=== PATIENT | female | born 1980 | race Caucasian/White ===

== ENCOUNTER → 2020-03-15 08:55 | Outpatient (CLI) | payer OTHER, SELFPAY ==
--- NOTE | ~2020-03-15 | US_ITS ---
US breast LT complete 03/15/2020 09:13 Indication: Left breast axillary palpable lump Procedure: High-resolution ultrasound of the left axilla Comparison: No prior studies for comparison. Findings: In the area of palpable concern in the left axilla, 12 cm from the nipple, there is a audrey l-appearing 1.7 cm lymph node with echogenic hilum. No sonographic evidence for malignancy. Impression: 1: Benign-appearing left axillary lymph node in the area of palpable concern. Routine yearly screening mammogram and regular clinical breast examination are recommended. BI-RADS CATEGORY 2 - BENIGN FINDINGS Reviewed, dictated and finalized at location A. Impression: 1: Benign-appearing left axillary lymph node in the area of palpable concern. Routine yearly screening mammogram and regular clinical breast examination are recommended. BI-RADS CATEGORY 2 - BENIGN FINDINGS
== END ==
PROVIDERS: Visit Provider Nurse Practitioner Obstetrics & Gynecology
DX: R22.2 Localized swelling, mass and lump, trunk (principal)
CPT/HCPCS: 76641

== ENCOUNTER 2020-10-25 13:05 | Outpatient (CLI) | payer OTHER, SELFPAY | END 2020-10-25 13:06 | disposition home or self-care (01) | LOC: ANHCOVIDVC 13:06 | PROVIDERS: PCP Advanced Practice Midwife | DX: Z23 Encounter for immunization (principal) | CPT/HCPCS: 0001A; 91300 ==

== ENCOUNTER 2020-11-15 12:59 | Outpatient (CLI) | payer OTHER, SELFPAY | END 2020-11-15 13:00 | disposition home or self-care (01) | LOC: ANHCOVIDVC 12:59 | PROVIDERS: PCP Advanced Practice Midwife | DX: Z23 Encounter for immunization (principal) | CPT/HCPCS: 0002A; 91300 ==

== ENCOUNTER 2022-08-17 15:18 | Outpatient (CLI) | payer OTHER, SELFPAY ==
--- NOTE | ~2022-08-17 | CT_ITS ---
EXAMINATION: CT abdomen pelvis w con DATE: 08/17/2022 15:56 INDICATION: Abdominal pain. Umbilical hernia for 9 months. TECHNIQUE: Computed tomography (CT) of the abdomen and pelvis was performed with 100 CC Omnipaque 350 intravenous contrast. Automated exposure control and iterative reconstruction technique were employe d. Exam dose: 341.37 mGy-cm total exam DLP. COMPARISON: 05/13/2015 CT abdomen pelvis FINDINGS: The lung bases are clear. Normal heart size. No pericardial or pleural effusion. Small sliding hiatal hernia. The liver, spleen, pancreas, and adrenal glands and kidneys appear normal. The gallbladder is present. No bile duct or pancreatic duct dilatation. No urinary tract calculus or hydroureteronephrosis. Moderate diffuse thickening of the urinary bladder wall; cystitis is not excluded. The uterus and adn exal areas are unremarkable except for enhancing approximately 1.3 cm involuting right ovarian corpus luteum cyst. There is minimal likely physiologic free fluid in the posterior cul-de-sac. Normal caliber of the abdominal aorta. No intraperitoneal or retroperitoneal or pelvic mass lesion or adenopathy or ascites. No bowel obstruction, bowel wall thickening, pneumatosis or intraperitoneal free air. Small fat-containing umbilical hernia. No suspicious osteolytic or osteoblastic lesions. IMPRESSION: Involuting 1.3 cm right ovarian cyst with minimal likely physiologic free fluid in the p osterior cul-de-sac Small sliding hiatal hernia Small fat-containing umbilical hernia Reviewed, dictated and finalized at Location A. Reviewed, dictated and finalized at location A. UITING ASSISTANT IMPRESSION: Involuting 1.3 cm right ovarian cyst with minimal likely physiolog ic free fluid in the posterior cul-de-sac Small sliding hiatal hernia Small fat-containing umbilical hernia
== END 2022-08-17 15:19 | disposition home or self-care (01) ==
PROVIDERS: PCP Internal Medicine; Visit Provider Clinical Nurse Specialist
DX: K42.9 Umbilical hernia without obstruction or gangrene (principal); R10.9 Unspecified abdominal pain; K44.9 Diaphragmatic hernia without obstruction or gangrene; N83.201 Unspecified ovarian cyst, right side
CPT/HCPCS: 74177; Q9967

== ENCOUNTER → 2022-08-31 09:08 | Outpatient (CLI) | payer OTHER, SELFPAY ==
--- NOTE | ~2022-08-31 | US_ITS ---
US abdomen limited DATE: 08/31/2022 09:25 INDICATION: Epigastric abdominal pain TECHNIQUE: Real-time imaging of liver, pancreas, gallbladder COMPARISON: 08/17/2022 CT abdomen FINDINGS: No hepatic or pancreatic specimen mass lesion. Normal hepatopedal portal venous flow direct ion. No gallstones or gallbladder wall thickening or pericholecystic fluid. Negative sonographic Murp hy's sign. The common bile duct measures 3 mm, normal. IMPRESSION: Negative examination Reviewed, dictated and finalized at Location A. Reviewed, dictated and finalized at location L. PRINCIPAL IMPRESSION: Negative examination
== END ==
PROVIDERS: PCP Internal Medicine; Visit Provider Surgery
DX: R10.13 Epigastric pain (principal)
CPT/HCPCS: 76705

== ENCOUNTER → 2023-05-02 15:16 | Outpatient (CLI) | payer OTHER, SELFPAY ==
--- NOTE | ~2023-05-02 | XR_ITS ---
XR hand RT 2V DATE: 05/02/2023 15:29 INDICATION: Right hand pain TECHNIQUE: 3 views COMPARISON: None FINDINGS: No fracture or dislocation, periosteal reaction or bone destruction, erosive change or sarah drocalcinosis. IMPRESSION: Negative Reviewed, dictated and finalized at location A. IMPRESSION: Negative
== END ==
PROVIDERS: PCP Clinical Nurse Specialist; Visit Provider Clinical Nurse Specialist
DX: M79.641 Pain in right hand (principal)
CPT/HCPCS: 73120

== ENCOUNTER 2023-05-04 10:26 | Outpatient (CLI) | payer OTHER, SELFPAY ==
--- NOTE | 2023-05-04 13:21 | WPDPFTINT ---
PFT Procedure Performed PFT Procedure Performed Spirometry with Pre/Post Bronchodilator Plethysmography (Lung Vol) Diffusing Cap (DLCO) Flow Vol Loop PFT Interpretation This is a pulmonary function test with pre and post-bronchodilator spirometry, plethysmography and diffusing capacity. The test was performed and results interpreted in accordance with the 2019 and 2005 ATS/ERS Task Force guidelines respectively using the Global Lung Function Initiative-2012 reference equations. Patient demonstrated good effort and cooperation. Reproducibility criteria were met. The quality of the pre bronchodilator spirometry maneuver was Grade A and post bronchodilator spirometry maneuver was Grade A. Findings: Spirometry: The contour the inspiratory and expiratory flow tracing are normal. The pre bronchodilator FVC is 3.04 L, 81% predicted. The pre bronchodilator FEV1 is 2.52 L, 82% predicted. The pre bronchodilator FEV1: FVC ratio is 83%. The post bronchodilator FVC is 3.05 L, representing no change. The post bronchodilator FEV1 is 2.61 L, representing a 3% increase. The post bronchodilator FEV1: FVC ratio was 85%. Plethysmography: The total lung capacity is 5.25 L, 101% predicted. The functional residual capacity is 2.50 L, 87% predicted. The residual volume is 1.69 L, 101% predicted. Diffusion capacity: The diffusing capacity unadjusted for hemoglobin and carboxyhemoglobin is 17.7, 74% predicted. The diffusing capacity adjusted for alveolar volume is 4.61, 98% predicted. Impression: The spirometry is normal without evidence of an obstructive abnormality. There is no significant improvement after inhaling a single dose of albuterol. The lung volumes are normal. The diffusing capacity is normal. There are no prior studies for comparison
== END 2023-05-04 10:27 | disposition home or self-care (01) ==
LOC: ANHPFT 10:27
PROVIDERS: PCP Clinical Nurse Specialist; Visit Provider Clinical Nurse Specialist
DX: J45.909 Unspecified asthma, uncomplicated (principal)
CPT/HCPCS: 94060; 94726; 94729

== ENCOUNTER 2023-10-17 07:59 | Outpatient (CLI) | payer OTHER, SELFPAY ==
--- NOTE | ~2023-10-17 | NM_ITS ---
EXAMINATION: NM hepatobiliary wo pharm DATE: 10/17/2023 11:49 INDICATION: Diaphragmatic hernia without obstruction or gangrene. Recent epigastric pain. COMPARISON: None. TECHNIQUE: 4.9 mCi Tc-99m mebrofenin (Choletec) was administered intravenously. Scintigraphic images of the abdomen were obtained for one hour. At the 1 hour time point, the patient drank 8 oz Ensure, and imaging was continued for 60 minutes. Gallbladder ejection fraction was calculated by the technol ogist. FINDINGS: There is normal clearance of radiotracer from the blood pool. There is homogeneous tracer u ptake by the liver. Activity progresses to the bowel and gallbladder. The gallbladder ejection fract ion (GBEF) is 1%. Note that with this technique, normal GBEF >= 33%. IMPRESSION: 1. Significantly decreased, bladder ejection fraction consistent with gallbladder dysfunction or chr onic cholecystitis in the appropriate clinical setting. Reviewed, dictated and finalized at location A. N CHAINER IMPRESSION: 1. Significantly decreased, bladder ejection fraction consistent with gallblad tierra dysfunction or chronic cholecystitis in the appropriate clinical setting.
== END 2023-10-17 08:00 | disposition home or self-care (01) ==
PROVIDERS: PCP Clinical Nurse Specialist; Visit Provider Surgery
DX: K44.9 Diaphragmatic hernia without obstruction or gangrene (principal)
CPT/HCPCS: 78226; A9537

== ENCOUNTER 2023-11-23 13:07 | Outpatient (CLI) | payer OTHER, SELFPAY ==
[2023-11-23 13:49] LABS: Alanine Aminotransferase 23 U/L (6-35); Albumin Level 4.7 g/dL (3.5-5.1); Alkaline Phosphatase 50 U/L (38-126); Amylase 112 U/L (30-110); Aspartate Amino Transferase 31 U/L (14-36); Bilirubin,Total 0.7 mg/dL (0.2-1.3); Lipase 144 U/L (23-300)
== END 2023-11-23 13:08 | disposition home or self-care (01) ==
PROVIDERS: PCP Clinical Nurse Specialist; Visit Provider Surgery
DX: K82.8 Other specified diseases of gallbladder (principal); Z01.818 Encounter for other preprocedural examination
CPT/HCPCS: 36415; 80076; 82150; 83690

== ENCOUNTER 2023-12-03 01:44 | Day surgery (SDC) | payer OTHER, SELFPAY ==
[2023-11-21 09:51] VITALS: BMI 24.1
--- NOTE | 2023-11-21 10:03 | SUR.PREOP ---
Report to the Outpatient Waiting Room, entrance under the green pavilion located off [facility], at time 1000 on date 12/03/2023. Planned Procedure Time: 1200. Time changes happen often and if your time is changed the preop area will call you the afternoon before. - You and your visitor will be asked to self-screen and do not enter if you have any COVID symptoms. - A mask is optional within the hospital at this time. Patients may have clear liquids (water, carbonated beverages, clear teas, apple juice) until 3 hours prior to surgery with a maximum of 20 ounces. - No food from midnight until time of surgery Take the following medications the morning of surgery: inhalers DO NOT STOP ANY OF YOUR OTHER PRESCRIPTION MEDICATIONS PRIOR TO SURGERY ?EXCEPT THE FOLLOWING Medications to discontinue per physician: N/A Date to take last dose: N/A Please no make-up, nail emirati, hairspray, perfume, deodorant, or body powder the day of surgery. No jewelry (including any body piercings) or valuables the day of surgery, leave them at home. Please take a shower or bath the night before, or the morning of, surgery with an antibacterial soap. Wear comfortable, loose fitting clothing. - Jewelry must be removed prior to entering the operating room. Rings and piercings that are not removed may be cut off. - The hospital will not accept responsibility for valuables. - Please leave all valuables, including medications, at home the day of surgery. If you are going home after surgery, a licensed stake driver must drive you home. - NO public transportation without another adult if you receive anesthesia. - We recommend that an adult stay with you for 24 hours following discharge. - We also recommend that you do not drive, make important decision, drink alcoholic beverages, or take any drugs that were not prescribed by your health care provider for at least 24 hours after your discharge time. Follow any additional instructions given to you from your surgeon. If you or anyone in your household have experienced Covid symptoms in the past week, please notify your surgeon or the nurse liaison at the phone number below for possible testing. Telephone instructions given to Priya Chow and asked if any additional questions and then verbalized understanding. Patient advised to call surgeon office or pre surgery nurse liaison [phone] if any additional questions.
[2023-12-03 10:58] VITALS: BP 115/69; PULSE 77; RESP 18; TEMP 36.7; O2SAT 98
[2023-12-03] MEDS: LACTATED RINGERS 1,000 ML 30 ML IV CONT (11:06)
[2023-12-03] MEDS: ACETAMINOPHEN 500 MG TABLET 1000 MG PO (11:07)
[2023-12-03] MEDS: KETOROLAC 15 MG/ML VIAL (*BKC) IV PUSH (11:07)
== END 2023-12-03 12:20 | disposition home or self-care (01) ==
PROVIDERS: PCP Clinical Nurse Specialist; Visit Provider Surgery
PROC: 0FT44ZZ Resection of Gallbladder, Percutaneous Endoscopic Approach (ICD-10-PCS; CPT 47562; principal; 2023-12-03 12:00)
DX: K82.8 Other specified diseases of gallbladder (principal); Z53.9 Procedure and treatment not carried out, unspecified reason
CPT/HCPCS: 99211; A9270; G0463; J1885; J7120

== ENCOUNTER 2023-12-12 01:44 | Day surgery (SDC) | payer OTHER, SELFPAY ==
--- NOTE | 2023-12-04 14:23 | PC.NURSE ---
Report to the Outpatient Waiting Room, entrance under the green pavilion located off [facility], at time 1000 on date 12/12/23. Planned Procedure Time: 1200. Time changes happen often and if your time is changed the preop area will call you the afternoon before. - You and your visitor will be asked to self-screen and do not enter if you have any COVID symptoms. - A mask is optional within the hospital at this time. Patients may have clear liquids (water, carbonated beverages, clear teas, apple juice) until 3 hours prior to surgery with a maximum of 20 ounces. - No food from midnight until time of surgery Take the following medications with a SIP of water the morning of surgery: INHALER DO NOT STOP ANY OF YOUR OTHER PRESCRIPTION MEDICATIONS PRIOR TO SURGERY ?EXCEPT THE FOLLOWING Medications to discontinue per physician: N/A Date to take last dose: N/A Please no make-up, nail norwegian, hairspray, perfume, deodorant, or body powder the day of surgery. No jewelry (including any body piercings) or valuables the day of surgery, leave them at home. Please take a shower or bath the night before, or the morning of, surgery with an antibacterial soap. Wear comfortable, loose fitting clothing. - Jewelry must be removed prior to entering the operating room. Rings and piercings that are not removed may be cut off. - The hospital will not accept responsibility for valuables. - Please leave all valuables, including medications, at home the day of surgery. If you are going home after surgery, a licensed cdl team truck driver must drive you home. - NO public transportation without another adult if you receive anesthesia. - We recommend that an adult stay with you for 24 hours following discharge. - We also recommend that you do not drive, make important decision, drink alcoholic beverages, or take any drugs that were not prescribed by your health care provider for at least 24 hours after your discharge time. Follow any additional instructions given to you from your surgeon. If you or anyone in your household have experienced Covid symptoms in the past week, please notify your surgeon or the nurse liaison at the phone number below for possible testing. Telephone instructions given to PT - JESSICA and asked if any additional questions and then verbalized understanding. Patient advised to call surgeon office or pre surgery nurse liaison [phone] if any additional questions.
[2023-12-04 14:24] VITALS: BMI 25.1
[2023-12-12] VITALS (10 sets, daily range): BP systolic 107–128; BP diastolic 64–85; PULSE 71–89; RESP 13–16; TEMP 36.1–36.2; O2SAT 97–100
--- NOTE | 2023-12-12 10:42 | WPDANESEPPF ---
Anes - Initial Pre Proc Eval Procedure: Operation Date: 12/12/23 12:00 Proposed Procedures p Laparoscopic Cholecystectomy, Davinci Assisted - Haile Myers DO Date/Time: 12/12/23 10:42 Surgeon: Haile Myers DO Pre Op Diagnosis: Biliary Dyskinesia Patient Data Age: 43 Gender: F Height: 1.65 m Weight: 68.6 kg Allergies Allergy/AdvReac Type Severity Reaction Status Date / Time Sulfa (Sulfonamide Allergy Severe Unknown Verified 12/04/23 14:23 Antibiotics) Home Medications Medication Instructions Recorded Confirmed Type albuterol sulfate 90 mcg/actuation 2 puff inhalation Q4-6H PRN 03/08/23 12/04/23 Rx aerosol inhaler (ProAir HFA) shortness of breath or wheezing #8.5 grams fluticasone propionate 115 2 puff inhalation BID #12 grams 03/09/23 12/04/23 Rx mcg-salmeterol 21 mcg/actuation HFA inhaler (Advair HFA) triamcinolone acetonide 0.1 % 1 applic topical BID PRN rash #30 09/27/23 12/04/23 Rx topical cream grams cetirizine 10 mg tablet (Allergy 10 mg PO PRN PRN Allergies 11/21/23 12/04/23 History Relief (cetirizine)) Patient hx anesthesia problems: none Family hx anesthesia problems: none Results Review: All pre-operative results and documents have been reviewed as part of the pre-operative evaluation. FORMERLY [facility] Past Medical History Medical History Abdominal pain Abnormal CBC Acute sinusitis Allergies Asthma Epigastric pain Fatigue Hematuria Hiatal hernia Umbilical hernia Umbilical hernia without obstruction and without gangrene Urinary retention Urinary tract infection symptoms Vitamin D deficiency Surgical History Surgical History History of hip surgery Hx of LASIK Family History Family History Father Patient's father is in good health Mother Diabetes mellitus Pernicious anemia Sibling Neville sarcoma Social History Social History Smoking status: Never smoker Alcohol intake: current Drinks per week: 1 Alcohol use details: socially Substance use: never Substance use type: does not use Lack of Transportation: No Lack of Food: Never True Current Housing: I Have Housing Concerned About Future Housing: No Difficulty Paying Gas/Electric Bills: No Difficulty Paying for Meds: No Currently Unemployed: No Education: Bachelor's Degree Difficulty w/ Childcare or Family Care: No Living arrangements: with family Spiritual care concerns: No Anes - Eval Final PreProcedure Day of Procedure 12/12/23 10:42 Patient weight: normal Heart: regular rate and rhythm Lungs: clear to auscultation Airway: Mallampati scale class II Neurological: alert and oriented Last oral intake: >/= 8 hours ASA classification: II Emergent: no Anesthetic plan: proceed Anesthesia type and monitoring: general ETT and standard monitoring Results Review: All pre-operative results and documents have been reviewed as part of the pre-operative evaluation. Informed Consent: The patient's anesthetic plan and its attendant risks and benefits were discussed with the patient/family/POA. Questions were solicited and answers provided to the satisfaction of the patient/family/POA.
--- NOTE | 2023-12-12 11:42 | PM.IMHP ---
H&P: HPI History of Present Illness Date/Time: 12/12/23 11:42 Chief Complaint: Biliary dyskinesia, umbilical hernia Narrative: 43 yo woman presents for cholecystectomy. She also has a symptomatic umbilical hernia and would like this repaired. She reports no other medical changes since last seen in office. Review of Systems Review of Systems: All systems reviewed & are unremarkable except as noted in HPI and below Constitutional: Constitutional: Denies chills, Denies fever(s), Denies headache(s) and Denies weight loss Eyes: Eyes: Denies change in vision ENT: Denies dizziness, Denies headache(s), Denies neck mass and Denies throat swelling Cardiovascular: Cardiovascular: Denies chest pain, Denies lightheadedness and Denies dyspnea Respiratory: Respiratory: Denies cough, Denies dyspnea and Denies wheezing Gastrointestinal: Gastrointestinal: Denies abdominal pain, Denies change in bowel habits, Denies nausea and Denies vomiting Genitourinary: Genitourinary: Denies hematuria and Denies dysuria Musculoskeletal: Musculoskeletal: Reports as per HPI Integumentary/Breasts: Skin/Breast: Reports as per HPI Neurologic: Denies dizziness and Denies headache(s) Allergic/Immunologic: Allergic/Immunologic: Denies throat swelling and Denies wheezing PMFSH Past Medical History Medical History Abdominal pain Abnormal CBC Acute sinusitis Allergies Asthma Epigastric pain Fatigue Hematuria Hiatal hernia Umbilical hernia Umbilical hernia without obstruction and without gangrene Urinary retention Urinary tract infection symptoms Vitamin D deficiency Surgical History Surgical History History of hip surgery Hx of LASIK Family History Family History Father Patient's father is in good health Mother Diabetes mellitus Pernicious anemia Sibling Neville sarcoma Social History Social History Smoking status: Never smoker Alcohol intake: current Drinks per week: 1 Alcohol use details: socially Substance use: never Substance use type: does not use Lack of Transportation: No Lack of Food: Never True Current Housing: I Have Housing Concerned About Future Housing: No Difficulty Paying Gas/Electric Bills: No Difficulty Paying for Meds: No Currently Unemployed: No Education: Bachelor's Degree Difficulty w/ Childcare or Family Care: No Living arrangements: with family Spiritual care concerns: No Meds Home Medications and Allergies Home Medications Medication Instructions Recorded Confirmed Type albuterol sulfate 90 mcg/actuation 2 puff inhalation Q4-6H PRN 03/08/23 12/12/23 Rx aerosol inhaler (ProAir HFA) shortness of breath or wheezing #8.5 grams fluticasone propionate 115 2 puff inhalation BID #12 grams 03/09/23 12/12/23 Rx mcg-salmeterol 21 mcg/actuation HFA inhaler (Advair HFA) triamcinolone acetonide 0.1 % 1 applic topical BID PRN rash #30 09/27/23 12/12/23 Rx topical cream grams cetirizine 10 mg tablet (Allergy 10 mg PO PRN PRN Allergies 11/21/23 12/12/23 History Relief (cetirizine)) Allergies Allergy/AdvReac Type Severity Reaction Status Date / Time Sulfa (Sulfonamide Allergy Severe Unknown Verified 12/12/23 11:15 Antibiotics) Vital Signs Vital Signs - 24 hr 12/12/23 11:20 Temperature 36.2 C L Pulse Rate 84 Respiratory Rate 16 Blood Pressure 108/71 Pulse Oximetry 100 Oxygen Delivery Room Air Exam Const: General: no acute distress and alert Orientation/consciousness: patient oriented x3 HENMT: Head: normocephalic and atraumatic Ears: hearing grossly normal bilaterally Face/Nose/Sinus: Normal nares present Mouth: Yes Normal oral and palatal mucosa present Eyes: Periorbital: periorbital findings normal Sclera:
--- NOTE | 2023-12-12 11:45 | WPDHPUPDATE1 ---
History and Physical Update Update Date/Time: 12/12/23 11:45 History and Physical has been reviewed, including an updated exam of the patient. There are NO changes in the patient's condition. Risks, benefits, and alternatives have been discussed and questions answered. Patient agrees to proceed with procedure.
[2023-12-12] MEDS: ceFAZolin 2 GM/D5W 50 ML 2 GM/50 ML BAG IVPB (11:58)
[2023-12-12] MEDS: INDOCYANINE GREEN 25 MG VIAL WITH DILUENT 3.75 MG IV PUSH (12:06)
[2023-12-12] MEDS: BUPIVACAINE/EPINEPHRINE 0.5% 50 ML VIAL 30 ML INFILTRATE (12:35)
[2023-12-12] MEDS: LACTATED RINGERS 1,000 ML 30 ML IV CONT ×2 (13:07)
[2023-12-12] MEDS: fentaNYL CITRATE INJ (*CRX) 100 MCG/2 ML VIAL 25 MCG IV PUSH ×2 (13:52→13:56)
[2023-12-12] MEDS: ONDANSETRON INJ 4 MG/2 ML VIAL IV PUSH (13:55)
--- NOTE | 2023-12-12 13:58 | W.PM.PROC2 ---
Procedure Note - Detailed Date of Procedure 12/12/23 Pre-op Diagnosis Biliary Dyskinesia, umbilical hernia Post-op Diagnosis Same Procedure Performed 1. Laparoscopic cholecystectomy with cholangiography, da Cezar assisted 2. Interpretation of cholangiography 3. Open 1 cm umbilical hernia repair Surgeon Haile Myers, DO Anesthesia General and Local (0.5% bupivacaine) Indications This is a 43-year-old woman who presented with epigastric abdominal pain. She was initially seen firm symptoms possibly related to a hiatal hernia, but the symptoms did not appear to be typical for hiatal hernia and she was not experiencing significant acid reflux or heartburn. An ultrasound of her gallbladder was originally obtained which was normal. She then underwent HIDA scan which showed a gallbladder ejection fraction of 1%. She was also noted to have a small umbilical hernia on physical exam. Discussions were made with the patient about treatment options and decision was made to proceed with robotic assisted laparoscopic cholecystectomy and open umbilical hernia repair. Findings Laparoscopic cholecystectomy was performed. Patient was given 0.25 mL indocyanine green preoperatively after induction of anesthesia. This allowed me to visualize the biliary anatomy. The common bile duct was clearly visualized with the use of near infrared fluorescence imaging. I was also able to visualize the cystic duct and ensure that there were no other structures near this area. The gallbladder was removed and sent to the lab for pathology. At the conclusion of the procedure, then repaired the umbilical hernia. The umbilical hernia measured 1 cm. The fascial edges were reapproximated using Ethibond [id number] sutures. Description of Procedure Procedure as well as risks, benefits, and alternatives were discussed with the patient. Written consent was obtained and placed in chart prior to procedure. 0.25 mL of indocyanine green was given intravenously once the patient was intubated. Patient was brought back to surgical suite. She was placed supine on operating table. Time-out was done to confirm patient and procedure. She was then intubated by the anesthesia department. Her abdomen was then prepped and draped in sterile fashion using chlorhexidine prep. 0.5% bupivacaine was infiltrated locally at the site of each port placement. An 8 mm incision was made just superior to the umbilicus and a 5 mm Optiview trocar was then advanced through the abdominal layers under direct visualization. Once inside the abdominal cavity, carbon dioxide insufflation was used to create a pneumoperitoneum. The camera was inserted and the abdomen was inspected. No mediated abnormalities were noted. The patient was placed in 10? reverse Trendelenburg position and rotated 10? to the left. Two 8 mm incisions were made in the right lateral abdomen and 2 8 mm trocars were inserted under direct visualization. A 8 mm incision was made in the left lateral abdomen and a 8 mm trocar was inserted under direct visualization. The 5 mm Optiview trocar was then removed and another 8 mm trocar was inserted in its place. The robotic arms were then brought up to the patient's bedside and secured to each port. The camera and instruments were inserted. I then moved over to the robotic consult to take control of the camera and instruments. The gallbladder was grasped at the fundus and retracted cephalad. The infundibulum of the gallbladder was then grasped and retracted laterally. Hook electrocautery was then used to carefully dissect around the neck of the gallbladder. The cystic duct was identified and a window was created around it using hook electrocautery. The cystic artery was also identified and a window was created behind it using hook electrocautery. Critical view of safety was identified visualizing the cystic duct running directly into the neck of the gallbladder and the cystic artery running directly into
[2023-12-12] MEDS: oxyCODONE HCL (*CRX) 5 MG TAB IR PO (14:02)
[2023-12-12] MEDS: diphenhydrAMINE HCl INJ 50 MG/ML VIAL 25 MG IV PUSH (15:12)
[2023-12-12] MEDS: SCOPOLAMINE 1 MG PATCH 1 PATCH TRANSDERM (15:12)
== END 2023-12-12 15:48 | disposition home or self-care (01) ==
PROVIDERS: PCP Clinical Nurse Specialist; Visit Provider Surgery
PROC: 0FT44ZZ Resection of Gallbladder, Percutaneous Endoscopic Approach (ICD-10-PCS; CPT 47562; principal; 2023-12-12 12:00)
DX: K82.8 Other specified diseases of gallbladder (principal); K42.9 Umbilical hernia without obstruction or gangrene; J45.909 Unspecified asthma, uncomplicated; Z79.51 Long term (current) use of inhaled steroids
CPT/HCPCS: 47563; 74300; S2900; 36415; 86850; 86900; 86901; 88304; A9270; J0330; J0690; J1100; J1200; J2250; J2405; J2704; J3010; J7030; J7120

== ENCOUNTER 2024-02-08 13:21 | Outpatient (CLI) | payer OTHER, SELFPAY ==
--- NOTE | ~2024-02-08 | MMUS_ITS ---
EXAMINATION: MM diagnostic shari BI w [place], US breast RT limited HISTORY: Fat necrosis TECHNIQUE: 3-D tomosynthesis images of the bilateral breasts were performed and synthetic 2-D images were generated. CAD analysis was submitted and interpreted. High resolution limited right breast ultr asound was performed. COMPARISON: 07/03/2023, 08/24/2022, 05/03/2022, prior ultrasound dated 07/03/2023 FINDINGS: MAMMOGRAPHIC FINDINGS: There are scattered fibroglandular densities. Parenchymal pattern of the breasts is similar to prior exam. No suspicious mass lesion or distortion seen. Probable area of fat necrosis with central fat attenuation noted at the lower right breast. The re are calcifications at the posterior upper, outer left breast, not completely imaged on prior exams . Spot magnification views demonstrate somewhat amorphous calcifications, some of which probably have lucent centers. These calcifications are probably benign. No other suspicious microcalcifications se en. ULTRASOUND: Repeat sonographic imaging at the 7:00 position right breast, 8 cm from the nipple demonstrates a 4 m m circumscribed hypoechoic structure, possibly a small cyst versus solid mass. There is no posterior shadowing. No other sonographic lesion seen in the region scanned. IMPRESSION: Probable benign calcifications of the posterior, upper, outer left breast, as detailed above. Six-mo nth follow-up mammography recommended to further evaluate. Probable benign 4 mm sonographic mass at the 7:00 position right breast, 8 cm from the nipple. Six-mo nth follow-up ultrasound recommended to reassess. No other findings which are suspicious for malignancy. BI-RADS category 3, probably benign findings. Reviewed, dictated and finalized at location M. IMPRESSION: Probable benign calcifications of the posterior, upper, outer left breast, as detailed above. Six-month follow-up mammography recommended to further evaluate . Probable benign 4 mm sonographic mass at the 7:00 position right breast, 8 cm f rom the nipple. Six-month follow-up ultrasound recommended to reassess. No other findings which are suspicious for malignancy. BI-RADS category 3, probably benign findings.
== END 2024-02-08 13:22 | disposition home or self-care (01) ==
PROVIDERS: PCP Clinical Nurse Specialist; Visit Provider Surgery
DX: N64.1 Fat necrosis of breast (principal); R92.8 Other abnormal and inconclusive findings on diagnostic imaging of breast
CPT/HCPCS: 76642; 77062; 77066; G0279

== ENCOUNTER 2024-08-01 01:26 | Day surgery (SDC) | payer OTHER, SELFPAY ==
[2024-06-20 14:36] VITALS: BMI 23.3
[2024-07-24 16:44] VITALS: BMI 23.3
--- NOTE | 2024-07-31 12:59 | P.PNAN_ITS ---
Anes - Initial Pre Proc Eval Procedure: Operation Date: 08/01/24 08:30 Proposed Procedures p Esophagogastroduodenoscopy & Colonoscopy - Toribio Montaño MD Date/Time: 07/31/24 12:59 Surgeon: Toribio Montaño MD Pre Op Diagnosis: GERD/ Fecal Urgency Patient Data Age: 44 Gender: F Height: 1.65 m Weight: 63.5 kg Allergies Allergy/AdvReac Type Severity Reaction Status Date / Time Sulfa (Sulfonamide Allergy Severe Unknown Verified 08/01/24 07:17 Antibiotics) Home Medications ?Medication ?Instructions ?Recorded ?Confirmed ?Type albuterol sulfate 90 mcg/actuation 2 puff inhalation Q4-6H PRN 03/08/23 06/20/24 Rx aerosol inhaler (ProAir HFA) shortness of breath or wheezing #8.5 grams fluticasone propionate 115 2 puff inhalation BID #12 grams 03/09/23 08/01/24 Rx mcg-salmeterol 21 mcg/actuation HFA inhaler (Advair HFA) triamcinolone acetonide 0.1 % 1 applic topical BID PRN rash #30 09/27/23 06/20/24 Rx topical cream grams cetirizine 10 mg tablet (Allergy 10 mg PO PRN PRN Allergies 11/21/23 06/20/24 History Relief (cetirizine)) dicyclomine 10 mg capsule 10 mg PO .ac/hs #120 caps 06/06/24 08/01/24 Rx omeprazole 40 mg capsule,delayed 40 mg PO DAILY #30 caps 06/06/24 08/01/24 Rx release Patient hx anesthesia problems: none Family hx anesthesia problems: none Results Review: All pre-operative results and documents have been reviewed as part of the pre- operative evaluation. [facility] Past Medical History Medical History Abdominal pain Abnormal CBC Acute sinusitis Allergies Asthma Encounter for surgical aftercare following surgery on the digestive system Epigastric pain Excessive cerumen in both ear canals Fatigue Hematuria Hiatal hernia Right hand pain Umbilical hernia Umbilical hernia without obstruction and without gangrene Urinary retention Urinary tract infection symptoms Vitamin D deficiency Wrist pain, right Surgical History Surgical History H/O abdominal surgery History of hip surgery History of laparoscopic cholecystectomy 12/12/23 1. Laparoscopic cholecystectomy with cholangiography, da Cezar assisted 2. Interpretation of cholangiography 3. Open 1 cm umbilical hernia repair Hx of FARZAD Family History Family History Father Patient's father is in good health Mother Diabetes mellitus Pernicious anemia Sibling Neville sarcoma Social History Social History Smoking status: Never smoker Alcohol intake: current Drinks per week: 4 Alcohol use details: socially Substance use: never Substance use type: does not use Do You Feel Safe in your Home?: Yes Lack of Transportation: No Lack of Food: Never True Current Housing: I Have Housing Concerned About Future Housing: No Difficulty Paying Gas/Electric Bills: No Difficulty Paying for Meds: No Currently Unemployed: No Education: Bachelor's Degree Difficulty w/ Childcare or Family Care: No Living arrangements: with family Spiritual care concerns: No Anes - Eval Final PreProcedure Day of Procedure 07/31/24 12:59 Patient weight: normal Heart: regular rate and rhythm Lungs: clear to auscultation and normal air movement Airway: Mallampati scale class II Neurological: alert and oriented Last oral intake: >/= 8 hours ASA classification: II Emergent: no Anesthetic plan: proceed Anesthesia type and monitoring: general GIVS and standard monitoring Results Review: All pre-operative results and documents have been reviewed as part of the pre- operative evaluation. Informed Consent: The patient's anesthetic plan and its attendant risks and benefits were discussed with the patient/family/POA. Questions were solicited and answers provided to the satisfaction of the patient/family/POA.
[2024-08-01 07:18] VITALS: BP 107/75; PULSE 93; RESP 18; TEMP 36.1; O2SAT 99
[2024-08-01] MEDS: LACTATED RINGERS 1,000 ML 150 ML IV CONT (07:31)
--- NOTE | 2024-08-01 07:54 | PM.IMHP ---
H&P: HPI History of Present Illness Date/Time: 08/01/24 07:54 Chief Complaint: Chronic diarrhea- GERD Narrative: this patient has recently been evaluated in our office for persistent diarrhea. She has a history of cholecystectomy and a cholestyramine trial failed to improve it. In addition patient has frequent heartburn episodes, for which she takes Tums or occasions but has never been a constant PPI regimen. Review of Systems Review of Systems: All systems reviewed & are unremarkable except as noted in HPI and below PMFSH Past Medical History Medical History Abdominal pain Abnormal CBC Acute sinusitis Allergies Asthma Encounter for surgical aftercare following surgery on the digestive system Epigastric pain Excessive cerumen in both ear canals Fatigue Hematuria Hiatal hernia Right hand pain Umbilical hernia Umbilical hernia without obstruction and without gangrene Urinary retention Urinary tract infection symptoms Vitamin D deficiency Wrist pain, right Surgical History Surgical History H/O abdominal surgery History of hip surgery History of laparoscopic cholecystectomy 12/12/23 1. Laparoscopic cholecystectomy with cholangiography, da Cezar assisted 2. Interpretation of cholangiography 3. Open 1 cm umbilical hernia repair Hx of LASIK Family History Family History Father Patient's father is in good health Mother Diabetes mellitus Pernicious anemia Sibling Neville sarcoma Social History Social History Smoking status: Never smoker Alcohol intake: current Drinks per week: 4 Alcohol use details: socially Substance use: never Substance use type: does not use Do You Feel Safe in your Home?: Yes Lack of Transportation: No Lack of Food: Never True Current Housing: I Have Housing Concerned About Future Housing: No Difficulty Paying Gas/Electric Bills: No Difficulty Paying for Meds: No Currently Unemployed: No Education: Bachelor's Degree Difficulty w/ Childcare or Family Care: No Living arrangements: with family Spiritual care concerns: No Meds Home Medications and Allergies Home Medications ?Medication ?Instructions ?Recorded ?Confirmed ?Type albuterol sulfate 90 mcg/actuation 2 puff inhalation Q4-6H PRN 03/08/23 06/20/24 Rx aerosol inhaler (ProAir HFA) shortness of breath or wheezing #8.5 grams fluticasone propionate 115 2 puff inhalation BID #12 grams 03/09/23 08/01/24 Rx mcg-salmeterol 21 mcg/actuation HFA inhaler (Advair HFA) triamcinolone acetonide 0.1 % 1 applic topical BID PRN rash #30 09/27/23 06/20/24 Rx topical cream grams cetirizine 10 mg tablet (Allergy 10 mg PO PRN PRN Allergies 11/21/23 06/20/24 History Relief (cetirizine)) dicyclomine 10 mg capsule 10 mg PO .ac/hs #120 caps 06/06/24 08/01/24 Rx omeprazole 40 mg capsule,delayed 40 mg PO DAILY #30 caps 06/06/24 08/01/24 Rx release Allergies Allergy/AdvReac Type Severity Reaction Status Date / Time Sulfa (Sulfonamide Allergy Severe Unknown Verified 08/01/24 07:17 Antibiotics) Vital Signs Vital Signs - 24 hr 08/01/24 07:18 Temperature 97 F L Pulse Rate 93 Respiratory Rate 18 Blood Pressure 107/75 Pulse Oximetry 99 Oxygen Delivery Room Air Exam Const: General: cooperative and healthy appearing Resp: Effort & Inspection: normal respiratory effort and able to speak in complete sentences Auscultation: clear to auscultation bilaterally Cardio: Rate: regular rate Rhythm: regular rhythm GI: Inspection: normal to inspection GI Palp: No No hepatosplenomegaly present Auscultation: normal bowel sounds Rectal Exam: deferred Skin: General skin exam: normal color Psych: Appearance: grossly normal Mental Status: mental status grossly normal Assessment and Plan Assessment and plan (1) Diarrhea: Qualifiers: Diarrhea type: unspecified type Qualified Code(s): R19.7 - Diarrhea, unspecified Code(s): R19.7 - Diarrhea, unspecified Status: Acute Assessment and Plan: Differential diagnosis in her case includes her IBS -diarrhea versus microscopic colitis. Post cholecystectomy diarrhea is also in the differential diagnosis, however she did not respond to cholestyramine. Will do colonoscopy and biopsies to rule out microscopic colitis. In addition, EGD will evaluate esophageal mucosa, ruling out reflux esophagitis, or hiatal hernia. Will also take esophageal biopsies to rule out eosinophilic esophagitis. The patient is deemed a good candidate for the procedures. Consent signed. Will proceed. (2) GERD (gastroesophageal reflux disease): Qualifiers: Esophagitis presence: without esophagitis Qualified Code(s): K21.9 - Gastro-esophageal reflux disease without esophagitis Code(s): K21.9 - Gastro-esophageal reflux disease without esophagitis Status: Acute
[2024-08-01 08:24] VITALS: BP 115/73; PULSE 85; RESP 21; O2SAT 100
[2024-08-01 08:30] LABS: BEDSIDEPREGUCG Negative (Negative)
[2024-08-01 08:34] VITALS: BP 116/77; PULSE 71; RESP 23; O2SAT 100
--- NOTE | 2024-08-01 08:41 | SUR.OPER ---
EGD: start 803, end 807 Colonoscopy: start 812, end 822
[2024-08-01 08:44] VITALS: BP 112/76; PULSE 74; RESP 17; O2SAT 99
== END 2024-08-01 08:54 | disposition home or self-care (01) ==
PROVIDERS: PCP Clinical Nurse Specialist; Referring Provider Nurse Practitioner Family; Visit Provider Internal Medicine Gastroenterology
PROC: 0DJ08ZZ Inspection of Upper Intestinal Tract, Via Natural or Artificial Opening Endoscopic (ICD-10-PCS; CPT 43235; principal; 2024-08-01 08:30)
DX: R19.7 Diarrhea, unspecified (principal); K29.30 Chronic superficial gastritis without bleeding; K21.00 Gastro-esophageal reflux disease with esophagitis, without bleeding; Z79.51 Long term (current) use of inhaled steroids
CPT/HCPCS: 45380; 43239; 88305; J2704; J7120

== ENCOUNTER 2024-08-07 11:16 | Emergency (ER) | payer OTHER, SELFPAY ==
[2024-08-07 11:41] VITALS: BP 112/72; PULSE 91; RESP 18; TEMP 36.3; O2SAT 100
--- NOTE | 2024-08-07 12:07 | ED_ITS ---
HPI - URI/Sore Throat General Chief Complaint: Upper Respiratory Infection Stated Complaint: cough and sob Time Seen by Provider: 08/07/24 12:07 Source: patient, RN notes reviewed and old records reviewed Mode of arrival: ambulatory Limitations: no limitations History of Present Illness HPI Narrative: patient with asthma presents with 5 day history of productive cough and some wheezing, worsening. She reports that 2 members of her household were recently diagnosed with whooping cough. She now has similar symptoms and is concerned that she may also be infected. She reports she has been using her inhalers more than normal. Begins wheezing with minimal exertion. She is in no distress at this time, including respiratory distress. Related Data Home Medications ?Medication ?Instructions ?Recorded ?Confirmed ?Last Taken ?Type cetirizine 10 mg tablet (Allergy 10 mg PO PRN PRN Allergies 11/21/23 06/20/24 12/02/23 09:00 History Relief (cetirizine)) Allergies Allergy/AdvReac Type Severity Reaction Status Date / Time Sulfa (Sulfonamide Allergy Severe Anxiety Verified 08/07/24 12:08 Antibiotics) Review of Systems Review of Systems: All systems reviewed & are unremarkable except as noted in HPI and below Constitutional: Constitutional: Reports no additional constitutional complaints ENT: Reports system reviewed and no additional complaints, except as documented Cardiovascular: Cardiovascular: Reports no additional cardiovascular complaints Respiratory: Respiratory: Reports no additional respiratory complaints, Reports change in phlegm color, Reports chest congestion, Reports cough and Reports wheezing Gastrointestinal: Gastrointestinal: Reports no additional gastrointestinal complaints PMFSH Past Medical History Medical History Abdominal pain Abnormal CBC Acute sinusitis Allergies Asthma Encounter for surgical aftercare following surgery on the digestive system Epigastric pain Excessive cerumen in both ear canals Fatigue Hematuria Hiatal hernia Right hand pain Umbilical hernia Umbilical hernia without obstruction and without gangrene Urinary retention Urinary tract infection symptoms Vitamin D deficiency Wrist pain, right Surgical History Surgical History H/O abdominal surgery History of laparoscopic cholecystectomy 12/12/23 1. Laparoscopic cholecystectomy with cholangiography, da Cezar assisted 2. Interpretation of cholangiography 3. Open 1 cm umbilical hernia repair History of hip surgery Hx of LASIK Family History Family History Father Patient's father is in good health Mother Diabetes mellitus Pernicious anemia Sibling Neville sarcoma Social History Social History Smoking status: Never smoker Alcohol intake: current Drinks per week: 4 Alcohol use details: socially Substance use: never Substance use type: does not use Do You Feel Safe in your Home?: Yes Lack of Transportation: No Lack of Food: Never True Current Housing: I Have Housing Concerned About Future Housing: No Difficulty Paying Gas/Electric Bills: No Difficulty Paying for Meds: No Currently Unemployed: No Education: Bachelor's Degree Difficulty w/ Childcare or Family Care: No Living arrangements: with family Spiritual care concerns: No Comments At the time of my signature, I reviewed and agree with the nursing past medical, surgical, social, and family history. There is no relevant family history pertinent to the patient complaint. Exam Const: General: cooperative, no acute distress, alert and awake Orientation/consciousness: oriented to person, oriented to place and oriented to time HENMT: Head: normal to inspection Resp: Effort & Inspection: normal respiratory effort and able to speak in complete sentences Auscultation: clear to auscultation bilaterally, no crackles, no rales, no rhonchi and no wheezes Cardio: Palpation: normal PMI Rate: regular rate Rhythm: regular rhythm Heart sounds: S1 normal heart sound present and S2 normal heart sound present Neuro: General: oriented to person, oriented to place and oriented to time Cranial nerves: Yes CN's II-XII intact bilaterally Psych: Appearance: grossly normal Thought process: Normal thought process present Insight: Good insight present (Psych) Judgement: Good judgement present (Psych) Course Course Level of Care: Express Care Visit Vital Signs Vital signs: Vital Signs Temperature 97.4 F L 08/07/24 11:41 Pulse Rate 91 08/07/24 11:41 Respiratory Rate 18 08/07/24 11:41 Blood Pressure 112/72 08/07/24 11:41 Pulse Oximetry 100 08/07/24 11:41 Oxygen Delivery Room Air 08/07/24 11:41 Temperature 97.4 F L 08/07/24 11:41 Pulse Rate 91 08/07/24 11:41 Respiratory Rate 18 08/07/24 11:41 Blood Pressure 112/72 08/07/24 11:41 Pulse Oximetry 100 08/07/24 11:41 Oxygen Delivery Room Air 08/07/24 11:41 Reviewed MDM - URI/Sore Throat MDM Narrative Medical decision making narrative: Patient with asthma, positive exposures to whooping cough. Cover with azithromycin, start prednisone. She has plenty of inhalers at home. Nontoxic appearing, stable for discharge. Discharge instructions reviewed with patient, as well as provided in writing per nursing staff. The instructions also include specific and strict return/GO TO THE ER as well as f/u information. All questions have been answered, and the patient deny any further questions with discharge and discharge plan. Some parts of this dictation were generated by voice recognition software and may contain typographical and/or grammatical inaccuracies. Differential Diagnosis Differential diagnosis: Likely upper respiratory infection, otitis media, s inusitis and influenza Medical Records Attestation: I reviewed the patient's medical records. Discharge Plan Discharge Clinical Impression: Asthma Qualifiers: Asthma severity: unspecified severity Asthma persistence: unspecified Asthma complication type: unspecified Qualified Code(s): J45.909 - Unspecified asthma, uncomplicated Patient Disposition: Home, Self-Care Condition: Stable Instructions: Antibiotic Form, Asthma (ED) Additional Instructions: Take medications as prescribed. Follow with primary care provider. Emergency department for new or worse symptoms Patient Language: Danish Prescriptions: New azithromycin 250 mg tablet See Rx Instructions .ROUTE .COMPLEX Qty: 6 0RF Rx Instructions: For 250 mg dose pack: take 500 mg today (day 1), then 250 mg for 4 days (days 2-5) prednisone 50 mg tablet 50 mg PO DAILY Qty: 5 0RF No Action dicyclomine 10 mg capsule 10 mg PO .ac/hs Qty: 120 3RF omeprazole 40 mg capsule,delayed release(DR/EC) 40 mg PO DAILY Qty: 30 2RF albuterol sulfate [ProAir HFA] 90 mcg/actuation HFA aerosol inhaler 2 puff INHALATION Q4-6H PRN (Reason: shortness of breath or wheezing) Qty: 8.5 1RF cetirizine [Allergy Relief (cetirizine)] 10 mg Tablet 10 mg PO PRN PRN (Reason: Allergies) fluticasone propion-salmeterol [Advair HFA] 115-21 mcg/actuation HFA aerosol inhaler 2 puff inhalation BID Qty: 12 2RF triamcinolone acetonide 0.1 % cream 1 applic topical BID PRN (Reason: rash) Qty: 30 0RF Follow-up/Referrals: Arianna Rouse [employer]ATOR-C [Primary Care Provider] - 2 Weeks Time of Disposition: 12:15
== END 2024-08-07 12:18 | disposition home or self-care (01) ==
PROVIDERS: Emergency Provider Nurse Practitioner Family; PCP Clinical Nurse Specialist
DX: J45.909 Unspecified asthma, uncomplicated (principal)
CPT/HCPCS: 99213; G0463

== ENCOUNTER 2024-08-19 10:15 | Outpatient (CLI) | payer OTHER, SELFPAY ==
--- NOTE | ~2024-08-19 | XR_ITS ---
EXAMINATION: XR chest 2V 08/19/2024 10:27 INDICATION: Cough PROCEDURE: 2 view chest COMPARISON: 02/02/2016 FINDINGS: The lungs are clear. The cardiomediastinal silhouette is within normal limits. There are no pleural effusions. There is no pneumothorax suspected. IMPRESSION: 1: NO ACUTE CARDIOPULMONARY DISEASE. Reviewed, dictated and finalized at location B. ENTION PLANNER
== END 2024-08-19 10:16 | disposition home or self-care (01) ==
PROVIDERS: PCP Clinical Nurse Specialist; Visit Provider Clinical Nurse Specialist
DX: R05.9 Cough, unspecified (principal); R09.89 Other specified symptoms and signs involving the circulatory and respiratory systems
CPT/HCPCS: 71046

== ENCOUNTER 2024-08-22 11:53 | Emergency (ER) | payer OTHER, SELFPAY ==
--- NOTE | ~2024-08-22 | XR_ITS ---
CHEST RADIOGRAPH, PA AND LATERAL CLINICAL HISTORY: recent URI, COUGH, LARYNGOSPASMS, HX ASTHMA . COMPARISON: 08/19/2024 TECHNIQUE: PA and lateral views of the chest. FINDINGS The cardiomediastinal silhouette is unremarkable. Trace peribronchial thickening. The lungs are otherwise clear. Visualized osseous structures and soft tissues are unremarkable. IMPRESSION: Trace peribronchial thickening, without focal infiltrate or effusion. Reviewed, dictated and finalized at location A. S UNLOADING EQUIPMENT TENDER
--- NOTE | ~2024-08-22 | CT_ITS ---
EXAMINATION: CT soft tissue neck wo con DATE: 08/22/2024 13:31 INDICATION: Laryngeal spasms. TECHNIQUE: Computed tomography (CT) of the neck was performed without intravenous contrast. Automated exposure control and iterative reconstruction technique were employed. The dose-length product was 3 71.70 mGy-cm. COMPARISON: None FINDINGS: There is mild scarring at the lung apices. There are no pathologically enlarged lymph nodes . There are calcifications in left palatine tonsil. The larynx is normal. The paranasal sinuses are c lear. The mastoid air cells are normal. There is mild kyphosis of cervical spine. IMPRESSION: 1. Normal larynx. Reviewed, dictated and finalized at location A. ITURE PAINTER IMPRESSION: 1. Normal larynx.
[2024-08-22 11:56] VITALS: BP 119/74; PULSE 85; RESP 18; TEMP 36.8; O2SAT 99
--- NOTE | 2024-08-22 13:10 | ED.URI ---
HPI - URI/Sore Throat General Chief Complaint: Upper Respiratory Infection Stated Complaint: URI Time Seen by Provider: 08/22/24 12:34 History of Present Illness HPI Narrative: This is a 44-year-old female with a past medical history including asthma and recent pertussis exposure. Patient presents to the emergency room with chief complaint of vocal cord spasms. Patient states that she has a history of asthma has been using her albuterol inhaler and been on 2 different rounds of steroids and azithromycin for her exposure to pertussis. She still dealing with a cough that is nonproductive but is causing her to have spasms or larynx where she gets a choking episodes and feels like she is suffocating. She states the albuterol nebulizer that she just bought has been helping her symptoms. Denies any chest pain or difficulty breathing without this coughing failure episodes. Of note she just had an endoscopy with colonoscopy and EGD just prior to the onset of her symptoms at the end of July. She has an ear nose and throat appointment in 2 days time. Patient was otherwise in her normal state of health. Patient has never had any history of traumatic intubations or any vocal cord injuries previously. She has not had any phonation changes and denies any fever chills. No nausea or vomiting. Related Data Home Medications ?Medication ?Instructions ?Recorded ?Confirmed ?Last Taken ?Type cetirizine 10 mg tablet (Allergy 10 mg PO PRN PRN Allergies 11/21/23 08/19/24 12/02/23 09:00 History Relief (cetirizine)) Allergies Allergy/AdvReac Type Severity Reaction Status Date / Time Sulfa (Sulfonamide Allergy Severe Anxiety Verified 08/22/24 12:38 Antibiotics) sulfamethoxazole (From AdvReac Anxiety Verified 08/22/24 12:38 Bactrim) trimethoprim (From Bactrim) AdvReac Anxiety Verified 08/22/24 12:38 Review of Systems Review of Systems: As reviewed above in HPI [facility] Past Medical History Medical History Encounter for surgical aftercare following surgery on the digestive system Excessive cerumen in both ear canals Right hand pain Wrist pain, right Acute sinusitis Urinary retention Hematuria Hiatal hernia Epigastric pain Umbilical hernia without obstruction and without gangrene Asthma Urinary tract infection symptoms Umbilical hernia Abdominal pain Abnormal CBC Vitamin D deficiency Fatigue Allergies Surgical History Surgical History H/O abdominal surgery History of laparoscopic cholecystectomy 12/12/23 1. Laparoscopic cholecystectomy with cholangiography, da Cezar assisted 2. Interpretation of cholangiography 3. Open 1 cm umbilical hernia repair History of hip surgery Hx of LASIK Family History Family History Father Patient's father is in good health Mother Diabetes mellitus Pernicious anemia Sibling Neville sarcoma Social History Social History Smoking status: Never smoker Alcohol intake: current Drinks per week: 4 Alcohol use details: socially Substance use: never Substance use type: does not use Do You Feel Safe in your Home?: Yes Lack of Transportation: No Lack of Food: Never True Current Housing: I Have Housing Concerned About Future Housing: No Difficulty Paying Gas/Electric Bills: No Difficulty Paying for Meds: No Currently Unemployed: No Education: Bachelor's Degree Difficulty w/ Childcare or Family Care: No Living arrangements: with family Spiritual care concerns: No Exam Narrative: GENERAL: [Well-appearing, well-nourished, and in no acute distress.] No coughing throughout the examination HEAD: [Normocephalic, atraumatic.] EYES: [PERRLA and EOMI.] ENT: Nares clear, no rhinorrhea or epistaxis. Mucous membranes moist. NECK: Supple. CHEST: [Clear to auscultation. No respiratory distress.] HEART: [Regular rate and rhythm]. No murmur heard. [Normal peripheral pulses.] ABDOMEN: [Soft, nondistended], [nontender], [No rigidity or guarding] EXTREMITIES: Normal range of motion. [No edema.] SKIN: Warm, dry, no rash. NEURO: [No focal deficits]. Alert and oriented [x3.] PSYCH: [Normal mood and affect.] Course Vital Signs Vital signs: Vital Signs Temperature 36.8 C 08/22/24 11:56 Pulse Rate 85 08/22/24 11:56 Respiratory Rate 18 08/22/24 11:56 Blood Pressure 119/74 08/22/24 11:56 Pulse Oximetry 99 08/22/24 11:56 Oxygen Delivery Room Air 08/22/24 11:56 Temperature 36.6 C 08/22/24 15:25 Pulse Rate 102 H 08/22/24 15:25 Respiratory Rate 20 08/22/24 15:25 Blood Pressure 108/64 08/22/24 15:25 Pulse Oximetry 99 08/22/24 15:25 Oxygen Delivery Room Air 08/22/24 11:56 MDM - URI/Sore Throat MDM Narrative Medical decision making narrative: 44-year-old female with history of asthma, mild intermittent. She presents to the emergency room with chief complaint of laryngeal spasms. She states that she has an ear nose and throat appointment in 2 days time but her PCP referred to the ER if she is having difficulty breathing occasionally. She is chin trying or nebulizer with albuterol inhaler which has helped her symptoms and she just completed azithromycin and 2 rounds of steroid. She otherwise appears well and is not any acute distress, conversing in full sentences without any phonation changes. No fever, hypoxia, tachycardia blood pressure concerns. Patient otherwise has been in her normal state of health. She did have a endoscopy with sedation but no intubation just prior to the onset of her laryngeal symptoms. Will provide her DuoNeb inhaler albuterol and Atrovent here for symptomatic relief of her asthma and larynx issue and obtain a CT noncontrast of the neck to make sure there is no soft tissue injury, polyps or masses that could be causing her symptoms as well. COVID flu RSV swabs and chest x-ray also obtained given her recent pertusses exposure and persistent symptoms. CT shows normal larynx with any acute process. Chest x-ray with some peribronchial thickening consistent with her bronchospastic process. No focal infiltrates or effusion. Negative COVID fluid RSV swabs. Patient was re-evaluated after nebulized treatments and felt improved. We went over patient's imaging studies and plan of care going forward with outpatient ear nose and throat referral. She has a scheduled appointment on Sunday. Patient safe and stable for discharge at this time. She was given strict return precautions. Medical Records Attestation: I reviewed the patient's medical records. Lab Data Attestation: I reviewed the patient's lab results. Labs: Lab Results 08/22/24 Range/Units 13:56 Influenza A (RT-PCR) Negative (Negative) Influenza B (RT-PCR) Negative (Negative) RSV (RT-PCR) Negative (Negative) SARS-CoV-2 RNA (RT-PCR) Negative (Negative) Imaging Data Attestation: I personally reviewed and interpreted this imaging study as follows: My impression: Impressions Soft Tissue Neck CT 08/22/24 13:32 IMPRESSION: 1. Normal larynx. Chest X-Ray 08/22/24 13:38 IMPRESSION: Trace peribronchial thickening, without focal infiltrate or effusion. Discharge Plan Discharge Clinical Impression: Laryngospasms, Asthma, Bronchospasm Patient Disposition: Home, Self-Care Condition: Stable Instructions: Antibiotic Form, Asthma (DC), Laryngospasm (DC) Additional Instructions: Your CT scan shows no acute concerning findings near your larynx or vocal cords. Continue taking your steroids for your asthma and we will prescribe you a separate medication for nebulization in addition to your albuterol. You can nebulize both together or separately. Please keep your ear nose and throat appointment on Sunday with Dr. Johnson. Return with any new or worsening concerns at any time. Patient Language: Bulgarian Prescriptions: New ipratropium bromide 0.02 % solution 2.5 ml inhalation Q6H PRN (Reason: shortness of breath or wheezing) Qty: 62.5 0RF No Action dicyclomine 10 mg capsule 10 mg PO .ac/hs Qty: 120 3RF omeprazole 40 mg capsule,delayed release(DR/EC) 40 mg PO DAILY Qty: 30 2RF cetirizine [Allergy Relief (cetirizine)] 10 mg Tablet 10 mg PO PRN PRN (Reason: Allergies) triamcinolone acetonide 0.1 % cream 1 applic topical BID PRN (Reason: rash) Qty: 30 0RF prednisone 20 mg tablet 20 mg PO BID Qty: 10 0RF fluticasone propion-salmeterol [Advair HFA] 115-21 mcg/actuation HFA aerosol inhaler 2 puff inhalation BID Qty: 12 2RF albuterol sulfate 90 mcg/actuation HFA aerosol inhaler 2 puff INHALATION Q4-6H PRN (Reason: shortness of breath or wheezing) Qty: 8.5 1RF albuterol sulfate 1.25 mg/3 mL solution for nebulization 1.25 mg inhalation Q4-6H PRN (Reason: shortness of breath or wheezing) Qty: 90 1RF Rx Instructions: Do not use concurrently with Albuterol inhaler. benzonatate 100 mg capsule 100 mg PO Q6H PRN (Reason: cough) Qty: 30 0RF doxycycline hyclate 100 mg tablet 100 mg PO Q12H 7 Days Qty: 14 0RF Follow-up/Referrals: Arianna Ruose RETAIL PRODUCT DEMO SPECIALIST-C [Primary Care Provider] - Time of Disposition: 15:01
[2024-08-22 13:50] VITALS: PULSE 82; RESP 20
[2024-08-22] MEDS: LEVALBUTEROL NEB 1.25 MG/3 ML 5 MG INHALATION (13:50)
[2024-08-22] MEDS: IPRATROPIUM BR 0.02% INH SOLN 0.5 MG/2.5 ML VIAL 1 MG INHALATION (13:50)
[2024-08-22 14:41] LABS: Influenza A QL RT-PCR Negative (Negative); Influenza B QL RT-PCR Negative (Negative); RSV RNA, RT-PCR Negative (Negative); SARS-CoV-2 RNA PCR Negative (Negative)
[2024-08-22 14:44] VITALS: PULSE 97; RESP 20
--- NOTE | 2024-08-22 15:00 | PC.NURSE ---
Report given to MARAH Arambula
[2024-08-22 15:25] VITALS: BP 108/64; PULSE 102; RESP 20; TEMP 36.6; O2SAT 99
== END 2024-08-22 15:28 | disposition home or self-care (01) ==
PROVIDERS: Emergency Provider Student in an Organized Health Care Education/Training Program; PCP Clinical Nurse Specialist
DX: J38.5 Laryngeal spasm (principal); J45.20 Mild intermittent asthma, uncomplicated; Z20.822 Contact with and (suspected) exposure to COVID-19; E55.9 Vitamin D deficiency, unspecified; Z90.49 Acquired absence of other specified parts of digestive tract
CPT/HCPCS: 70490; 71046; 87637; 94640; 99284

== ENCOUNTER 2024-09-02 12:57 | Outpatient (CLI) | payer OTHER, SELFPAY ==
--- NOTE | ~2024-09-02 | XR_ITS ---
Clinical Indication: Cough PA and lateral views of the chest: Comparison: 08/28/2024 Findings: Questional focal retrocardiac airspace disease. Right lung clear. Cardiomediastinal silhou ette is within normal limits. Bones and soft tissues are unremarkable. Impression: Questionable focal retrocardiac airspace disease. Correlate for focal left lower lobe atelectasis or pneumonia. Reviewed, dictated and finalized at location . OROLOGICAL ENGINEER Impression: Questionable focal retrocardiac airspace disease. Correlate for focal left lowe r lobe atelectasis or pneumonia.
== END 2024-09-02 12:58 | disposition home or self-care (01) ==
LOC: GOSHIMG 13:03
PROVIDERS: PCP Clinical Nurse Specialist; Visit Provider Clinical Nurse Specialist
DX: R05.9 Cough, unspecified (principal)
CPT/HCPCS: 71046

== ENCOUNTER 2024-09-26 13:00 | Outpatient (CLI) | payer OTHER, SELFPAY ==
--- NOTE | ~2024-09-26 | XR_ITS ---
EXAMINATION: XR chest 2V 09/26/2024 13:10 INDICATION: Pneumonia PROCEDURE: 2 view chest COMPARISON: 09/02/2024 FINDINGS: The lungs are clear. The cardiomediastinal silhouette is within normal limits. There are no pleural effusions. There is no pneumothorax suspected. IMPRESSION: 1: NO ACUTE CARDIOPULMONARY DISEASE. Reviewed, dictated and finalized at location B. RAISER
== END 2024-09-26 13:01 | disposition home or self-care (01) ==
LOC: GOSHIMG 13:01
PROVIDERS: PCP Clinical Nurse Specialist; Visit Provider Clinical Nurse Specialist
DX: J18.9 Pneumonia, unspecified organism (principal)
CPT/HCPCS: 71046

== ENCOUNTER 2024-12-08 13:42 | Outpatient (CLI) | payer OTHER, SELFPAY ==
--- OUTSIDE RECORDS SUMMARY | 2024-12-08 15:35 | XMS_ITS ---
Author Organization Formerly [facility] [place] ([address]) Address [address] [place] [address] Care Team Providers Care Robotic Machine Operator Name Role Phone Jagdeep Burdick Primary Care Provider Unavailab Karine Oh Unavailable [phone] REASON FOR VISIT Asthma follow-up Encounters Encounter Location Date Provider Diagnosis [facility] [address] [place] [address] 11/14/2023 Karine Valdivia Plan Of Treatment No Information Progress Notes * Topher SINGEROB: [birth year] (44 yo F)Acc No.[id number]:11/14/2023 Asthma F/U Patient: Priya DAVID Provider: Johnna Valdivia MD :[id number] A ge:43 Y S ex:Female Date:11/14/2023 Address:[address] [place], [place] [id number] Pcp:Jagdeep Burdick Subjective: * Chief Complaints: * 1 . Asthma follow-up. * Medical History: Objective: * Vitals: Assessment: Plan: * Treatment: * Billing Information: * Visit Code: * Procedure Codes: * Electronic signature of Britney Valdivia MD on 12/08/2024 at 03:35 PM CDT Sign off status: Pending * Provider: Johnna Valdiiva MD Date: 0 11/14/2023 Generated for Jalen manzanares/Cheryle/Milkasmitting on: 0 12/08/2024 03:35 PM CDT
--- OUTSIDE RECORDS SUMMARY | 2024-12-08 15:35 | XMS_ITS | Data Portability ---
Author Organization [facility] [place] Address [address] [place] [address] Care Team Providers Care Voice And Data Technician Name Role Phone TORI BORJA Primary Care Provider Assessment Encounter Date Assessment Date Assessment LastModified by Organization Details LastModified Time 08/14/2023 08/14/2023 Annual gynecological exam performed. Patient will come back in a year unless there are new symptoms. [email or web address] Not available 08/14/2023 10:44:16 09/15/2024 09/15/2024 Annual gynecological exam performed. Patient will come back in a year unless there are new symptoms. Not available 09/15/2024 15:09:47 Plan of Treatment Reminders Order Date Submit Date Provider Last Modified By Organization Details Last Modified Time Details Appointments None recorded. Lab None recorded. Referral breast surgery referral 2023 024 [email or web address] Lori Benavides MD, [address], [address], 4 14:24:42 Procedures None recorded. Surgeries None recorded. Imaging MAMMO, diagnostic, digital, bilateral 2022 023 [email or web address] 1 [facility], [address], [place], [address], 4 09:29:46 US, breast, bilateral, complete 2022 023 [email or web address] 1 [facility], [address], [place], [address], 4 09:29:35 Medication Orders EnilloRing 0.12 mg-0.015 mg/24 hr vaginal ring 2024 025 TANVIR [facility], [address] [place], [address], 5 15:59:18 NuvaRing 0.12 mg-0.015 mg/24 hr vaginal 2023 024 TANVIR [id number], [address], [place], [place], [id number], 4 13:10:02 Bactrim DS 800 mg-160 mg tablet 2022 023 [email or web address] 1 [facility][id number], [address] [facility], [place], [place], [id number], 4 09:30:51 Patient TargetsNo targets recorded. Patient InstructionsNo instructions recorded. Reason for Referral Breast Surgery Referral for Breast lump Referring Physician: Mara Overton, [employer], Encounter Date: 08/14/2023 Results Created Date Observation Date Name Description Value Unit Range Abnormal Flag Note LastModifiedBy Organization Detail LastModifiedTime 08/14/19 24 08/14/2023 IMAGE GUIDE D PAP AND HPV REGAR DLESS image guided Pap, HPV regardless of Pap result SEE RESULT S BELOW CASE REPOR T: Cytol ogy Gynec ologi james Repor t Case: [id number] Autho myrna g Provi tierra: Mara Overton, PAMELA Colle cted: 08/14 1504 Order ing Locat ion: [place] [facility] Recei haven: 08/14 2345 First Scree n: Noora ni, Moham ed, CT Speci men: Scree rosa Pap - Image d, Cervi x STATE MENT OF ADEQU ACY: Satis facto ry for evalu ation Trans forma tion zone compo nent prese nt FINAL DIAGN OSIS: Negat elias for Intra epith elial Lesio n or Malig kunal (NIL) . Elect leon cheney carmen d by Shadia Cotto ed, CT on 024 at 6:39 PM ----- ----- ----- ----- ----- ----- ----- ----- ----- ----- ----- ----- ----- ----- ----- ----- ----- ---- HPV RESUL TS: HPV mRNA E6/E7 : No HPV mRNA Detec varghese NOTE: This high risk HPV mRNA assay detec ts fourt een high- risk HPV types (16, 18, 31, 33, 35, 39, 45, 51, 52, 56, 58, 59, 66, 68) witho ut diffe renti ation . COMME NT: This speci men was revie wed by a Cytot echno logis t and/o r Patho logis t (as indic ated in this repor t) after evalu ation using the Thinp rep Imagi ng Syste m. CLINI JAMES INFOR MATIO N: Menst rual Statu s: LMP (if appli cable ): Clini james Histo ry/Pr eviou s Pap: Type of Neopl francisco javier (if appli cable ): Signi fican t Clini james Findi ngs: Other Histo ry: Hormo karl (if appli cable ): PAP EDUCA ULISSES L NOTE: The Pap Test is a scree rosa test with an inher ent false negat elias rate. Liqui d-bas ed sampl ing may decre ase, but will not elimi quintin, false negat elias resul ts. A negat elias resul t does not precl ude the prese nce and/o r devel opmen t of disea se, since the prese nce of abnor mal cells in the sampl e depen ds on the locat ion of the lesio n and sampl ing techn ique. Lashawn nued regul ar scree rosa is the best metho d of cance r preve ntion . If repor varghese cytol ogic findi ng do not corre late with physi james and/o r histo rical findi ngs, furth er inves tigat ion is recom fanny d, as clini kaylee burris nted. Not Available [facility] (Lab) [address], [place], [address], 08/15/2023 19:43:27 07/03/20 23 07/03/2023 MAMMO , diagn ostic , digit al, bilat eral No observ ation record ed. [email or web address] [facility] [address], [place], [address], 08/16/2023 17:07:54 07/03/2007/03/2023 MAMMO , scree rosa, bilat eral No observ ation record ed. [email or web address] [facility] [address] [place], [address], 07/09/2023 18:03:09 Result Notes None recorded. Problems Name Problem SNOMED Code Status Onset Date Resolution Date Notes Provider Name and Address Organization Details Recorded Time Gestatio n period, 38 weeks 38130667 Completed 201806/10/2021 38 weeks gestatio n of pregnanc y;Practi ce ID: 0001 Farnaz marx, [facility] 11:30:23 Normal pregnanc y in multigra savita [id number] 4106 Completed 201806/10/2021 Encounte r for suprvsn of normal pregnanc y, third trimeste r;Practi ce ID: 0001 Farnaz marx, [facility] 11:30:48 Lochia finding Completed 201806/10/2021 Encounte r for routine postpart um follow-u p;Practi ce ID: 0001 Farnaz marx, [facility] 11:30:43 Disorder of lactatio n 11372739 Completed 201806/10/2021 Other disorder s of lactatio n;Practi ce ID: 0001 Farnaz marx, [facility] 11:30:44 Procedur e related to breastfe eding Completed 201806/10/2021 Encounte r for care and examinat ion of lactatin g mother;P ractice ID: 0001 Farnaz marx, [facility] 11:30:41 Prescrip tion of contrace ption Completed 201506/10/2021 Encounte r for initial prescrip tion of contrace ptives, unspecif ied;Brett rded Elsewher e: No Locat ion: [facility] S ource: [employer] Dispatcher chilango: N Practi ce ID: 0001 Glynn lable Time: 08:30:00 AM [facility] 11:30:54 Speciali zed medical examinat ion Completed 201006/10/2021 Gynecolo gical Examinat ion;Brett rded Elsewher e: No Locat ion: [facility] S ource: [employer] chilango: N Practi ce ID: 0001 Glynn lable Time: 09:30:00 AM Farnaz marx [facility] 11:30:51 Generali zed anxiety disorder [id number] Completed 201106/10/2021 Generali zed anxiety disorder ;Recorde d Elsewher e: No Locat ion: [facility] S ource: [employer] chilango: N Practi ce ID: 0001 Glynn lable Time: 05:30:00 PM [facility] 11:30:29 Pregnanc y detectio n examinat ion Completed 201806/10/2021 Encounte r for pregnanc y test, result positive ;Recorde d Elsewher e: No Locat ion: [facility] S ource: [employer] chilango: N Practi ce ID: 0001 Glynn lable Time: 01:30:00 PM Farnaz marx, [facility] 11:30:57 Leukocyt osis [id number] Completed 201406/10/2021 LEUKOCYT OSIS NOS;Brett rded Elsewher e: No Locat ion: [facility] Practi ce ID: 0001 Glynn lable Time: 01:30:00 PM Farnaz Easley null, [facility] 11:30:18 Routine antenata l care Completed 201006/10/2021 Supervis ion of other normal pregnanc y;Practi ce ID: 0001 Farnaz Easley null, [facility] 11:30:21 Poor growth affectin g manageme nt 034528990 Completed 201006/10/2021 GROWTH POOR SGA;Prac tristen ID: 0001 Farnaz Easley null, [facility] 11:30:47 Antenata l screenin g Completed 201006/10/2021 Other antenata l screenin g based on amniocen tesis;Pr actice ID: 0001 Farnaz Easley null, [facility] 11:30:35 Delivery normal [id number] Completed 201006/10/2021 Normal delivery ;Practic e ID: 0001 Farnaz Easley null, [facility] 11:30:50 Single live from singleto n pregnanc y 994461469 Completed 201006/10/2021 Mother with single liveborn ;Practic e ID: 0001 Farnaz Easley null, [facility] 11:30:24 Postpart um care Completed 201006/10/2021 Routine postpart um follow-u p;Practi ce ID: 0001 Farnaz marx [facility] 11:30:20 Screenin g for malignan t neoplasm of cervix Completed 201006/10/2021 Pap Smear;Pr actice ID: 0001 Farnaz marx [facility] 11:30:26 Migraine [id number] Completed 201306/10/2021 Migraine , unspecif ied without mention of intracta ble migraine ;Practic e ID: 0001 Farnaz Easley [facility] 11:30:46 Female genital organ symptoms 240071350 Completed 201406/10/2021 Pelvic Pain;Pra ctice ID: 0001 [facility] 11:30:27 Pregnanc y test negative [id number] Completed 201406/10/2021 Negative Pregnanc y Test;Pra ctice ID: 0001 [facility] 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 11:30:39 Urinary tract infectio us disease 11526066 Completed 201606/10/2021 Urinary tract infectio n, site not specifie d;Practi ce ID: 0001 Farnaz marx [facility] 11:30:53 Evaluati on finding Completed 201606/10/2021 Hematuri a, unspecif ied;Prac tristen ID: 0001 Farnaz marx [facility] 11:30:38 Antenata l screenin g for malforma tion Completed 201806/10/2021 Encounte r for antenata l screenin g for malforma tions;Pr actice ID: 0001 Farnaz marx, [facility] 11:30:56 Lacerati on of female perineum Completed 201806/10/2021 First degree perineal lacerati on during delivery ;Practic e ID: 0001 Farnaz marx, [facility] 11:30:33 Term pregnanc y delivere d 58461230 Completed 201806/10/2021 Encounte r for full-ter m uncompli cated delivery ;Practic e ID: 0001 Farnaz marx, [facility] 11:30:30 Gestatio n period, 35 weeks [id number] Completed 201806/10/2021 35 weeks gestatio n of pregnanc y;Record ed Elsewher e: No Locat ion: [facility] S ource: [facility] [employer] chilango: N Practi ce ID: 0001 Glynn lable Time: 08:15:00 AM Farnaz marx [facility] 11:30:58 Uterine size for dates discrepa ncy Completed 201806/10/2021 Uterine size-paras e discrepa ncy, third trimeste r;Record ed Elsewher e: No Locat ion: [facility] S ource: [facility] [employer] chilango: N Practi ce ID: 0001 Glynn lable Time: 08:15:00 AM Farnaz marx [facility] 11:30:32 Problem Notes None recorded. Procedures Surgical History Date Name Laterality Status Provider Name and Address Organization Details Recorded Time 024 Cholecystectomy completed Kellen Melo [facility] 06/23/2024 12:45:22 024 procedure on gallbladder completed TUTU Angelia [facility] 09/15/2024 15:15:40 024 Date of Last Pap Smear completed Dorota Ruelas [facility] 08/14/2023 10:45:04 023 lipofilling of breast completed JEFERSON Pickens [address], [place], [address], [facility] 07/13/2023 12:38:17 017 procedure on hip completed Farnaz Easley [facility] 06/10/2021 11:41:46 001 extraction of wisdom tooth completed Dorota Ruelas [facility] 08/14/2023 10:47:04 Imaging Results Imaging Date Name Status LastModified by Organiz ation Details LastModified Time 07/03/2023 MAMMO, diagnostic, digital, bilateral completed [email or web address] [facility] [address] [place], [address], 08/16/2023 17:07:54 07/03/2023 MAMMO, screening, bilateral completed [email or web address] [facility] [address] [place], [address], 07/09/2023 18:03:09 Procedure Notes None recorded. Medical Equipment None Reported. Allergies Allergen ID Allergen Name Allergen Category Reaction Reaction Severity Criticality Documentation Date Start Date Code Code System Note Provider Name and Address Organization Details Recorded Time 73434 Bactrim medicatio n Not available Not available Not available 07/16/2023 41375 9 RxNorm JEFERSON Pickens [address], [place], [address], [facility] 11:07:58 26429 Substance with sulfonami de structure and antibacte rial mechanism of action (substanc e) medicatio n Not available Not available Not available 08/14/2023 61113 8003 SNOMED Dorota Sampsontz [place], [place] - [facility] 4 10:44:42 Medications Name Sig Start Date Stop Date Status Note LastModified by Organization Details LastModified Time antacid/d iphen/lid o 111 mouthwas SWISH AND SWALLOW 10 ML BY MOUTH EVERY 4 HOURS NEEDED FOR SORE THROAT 06/12 completed Not Available Not Available Not Available compound drug 06/12 completed Not Available Not Available Not Available dicloxaci llin 500 mg capsule TAKE 1 CAPSULE BY MOUTH EVERY 6 HOURS FOR 10 DAYS 08/14 completed Not Available Not Available Not Available fluconazo le 100 mg tablet Take 1 tablet every day by oral route for 14 days. 06/10 completed Not Available Not Available Not Available prednison e 10 mg tablet TAKE 1 TABLET BY MOUTH TWICE DAILY 06/23 completed Not Available Not Available Not Available ipratropi um 0.5 mg-albute rol 3 mg (2.5 mg base)/3 mL nebulizat ion soln active Not Available Not Available Not Available albuterol sulfate 2.5 mg/3 mL (0.083 %) solution for nebulizat ion active Not Available Not Available Not Available azithromy glynn 250 mg tablet TAKE 2 TABLETS BY MOUTH FOR 1 DAY THEN TAKE 1 TABLET BY MOUTH DAILY FOR 4 DAYS 09/15 completed Not Available Not Available Not Available ofloxacin 0.3 % eye drops PLEASE SEE ATTACHED FOR DETAILED DIRECTIO NS 06/23 completed Not Available Not Available Not Available fluconazo le 150 mg tablet TAKE 1 TABLET BY MOUTH 1 TIME 08/14 completed Not Available Not Available Not Available hydrocodo ne 5 mg-acetam inophen 325 mg tablet TAKE 1 TO 2 TABLETS BY MOUTH EVERY 8 HOURS NEEDED FOR PAIN active Not Available Not Available No t Available promethaz ine 6.25 mg/5 mL oral syrup active Not Available Not Available Not Available prednison e 20 mg tablet 09/15 completed Not Available Not Available Not Available Zyrtec 10 mg tablet take 1 tablet by oral route every day completed Prescrib ed Elsewher e: Yes Loca tion: [facility] M odify By: conchita aiken DateTime : 07/21/20 11 09:30:00 AM Not Available Not Available Not Available metronida zole 500 mg tablet TAKE 1 TABLET BY MOUTH EVERY 8 HOURS FOR 7 DAYS. DO NOT DRINK ALCOHOL WHILE TAKING. 08/14 completed Not Available Not Available Not Available acetamino phen 300 mg-codein e 30 mg tablet TAKE 1 TABLET BY MOUTH EVERY 6 HOURS NEEDED FOR POST-OP PAIN 06/12 completed Not Available Not Available Not Available sulfameth oxazole 800 mg-trimet hoprim 160 mg tablet TAKE 1 TABLET BY MOUTH TWICE DAILY FOR 7 DAYS 08/14 completed Not Available Not Available Not Available omeprazol e 40 mg capsule,d elayed release TAKE 1 CAPSULE BY MOUTH DAILY active Not Available Not Available No t Available triamcino lone acetonide 0.1 % topical cream APPLY TOPICALL Y TO THE AFFECTED AREA TWICE DAILY NEEDED FOR RASH active Not Available Not Available No t Available ondansetr on 8 mg disintegr ating tablet TAKE 1 TABLET BY MOUTH THREE TIMES DAILY NEEDED FOR NAUSEA 06/12 completed Not Available Not Available Not Available alprazola m 0.25 mg tablet TAKE 1 TABLET BY MOUTH TWICE DAILY NEEDED FOR ANXIETY active Not Available Not Available No t Available famotidin e 20 mg tablet TAKE 1 TABLET BY MOUTH DAILY AT BEDTIME NEEDED active Not Available Not Available No t Available Zoloft 50 mg tablet take 1 tablet (50MG) by oral route every day 10/16 completed Prescrib ed Amiher e: No Locat ion: [facility] odify By: [facility] DateTime : 10/11/19 12 05:30:00 PM Not Available Not Available Not Available benzonata te 100 mg capsule TAKE 1 CAPSULE BY MOUTH EVERY 6 HOURS NEEDED FOR COUGH active Not Available Not Available No t Available cephalexi n 500 mg capsule Take 1 capsule every 12 hours by oral route for 7 days. 08/14 completed Not Available Not Available Not Available venlafaxi ne 37.5 mg tablet TAKE 1 TABLET BY MOUTH DAILY active Not Available Not Available No t Available prednison e 50 mg tablet 09/15 completed Not Available Not Available Not Available omeprazol e 20 mg capsule,d elayed release active Not Available Not Available Not Available cephalexi n 500 mg tablet TAKE 1 TABLET BY MOUTH EVERY 6 HOURS FOR 10 DAYS 07/13 completed Not Available Not Available Not Available hydrocort isone 2.5 % topical cream APPLY TOPICALL Y TO THE AFFECTED AREA TWICE DAILY NEEDED FOR IRRITATI ON OR RASH 06/12 completed Not Available Not Available Not Available monteluka st 10 mg tablet TAKE 1 TABLET BY MOUTH EVERY DAY AT BEDTIME active Not Available Not Available No t Available fluocinon mellissa 0.05 % topical solution APPLY TO AFFECTED AREA ON SCALP AND EARS TWICE DAILY NEEDED FOR ITCHING active Not Available Not Available No t Available methylpre dnisolone 4 mg tablets in a dose pack FOLLOW PACKAGE DIRECTIO NS 06/12 completed Not Available Not Available Not Available albuterol sulfate HFA 90 mcg/actua tion aerosol inhaler INHALE 2 PUFFS BY MOUTH EVERY 4 TO 6 HOURS NEEDED FOR SHORTNES S OF BREATH OR WHEEZING active Not Available Not Available No t Available doxycycli ne hyclate 100 mg tablet TAKE 1 TABLET BY MOUTH EVERY 12 HOURS FOR 7 DAYS active Not Available Not Available No t Available dicyclomi ne 10 mg capsule TAKE 1 CAPSULE BY MOUTH BEFORE A MEAL / AT BEDTIME active Not Available Not Available No t Available ipratropi um bromide 21 mcg (0.03 %) nasal spray USE 2 SPRAYS IN EACH NOSTRIL TWICE DAILY active Not Available Not Available No t Available ipratropi um bromide 0.02 % solution for inhalatio n USE 2.5 ML VIA NEBULIZE R EVERY 6 HOURS NEEDED FOR SHORTNES S OF BREATH OR WHEEZING active Not Available Not Available No t Available amoxicill in 875 mg-potass ium clavulana te 125 mg tablet TAKE 1 TABLET BY MOUTH TWICE DAILY 09/15 completed Not Available Not Available Not Available Lexapro 10 mg tablet take 1 tablet (10MG) by oral route every day 09/05 completed Prescrib kaiden Elsew e: No Locat ion: [facility] odify By: anna aiken DateTime : 10/17/19 12 10:09:00 AM Not Available Not Available Not Available cholestyr amine (with sugar) 4 gram oral powder DISSOLVE 4 GRAMS IN FLUID AND DRINK BY MOUTH TWICE DAILY WITH A MEAL. AVOID OTHER MEDICATI ONS WITHIN 1 HOUR BEFORE OR 4-6 HOURS AFTER DOSE 06/23 completed Not Available Not Available Not Available 03/03 completed Not Available Not Available Not Available Advair HFA 115 mcg-21 mcg/actua tion aerosol inhaler active Not Available Not Available Not Available budesonid e-formote rol HFA 160 mcg-4.5 mcg/actua tion aerosol inhaler INHALE 2 PUFFS BY MOUTH EVERY 12 HOURS active Not Available Not Available No t Available [employer] CLERK-PNV-DH A 28 mg iron-1 mg-200 mg capsule take 1 capsule by oral route every day 06/10 completed Prescrib ed Elsewher e: No Locat ion: [facility] odify By: lakeisha he DateTime : 11/01/19 03:45:00 PM Not Available Not Available Not Available Gynazole- 1 2 % vaginal cream insert 1 applicat orful by vaginal route once 07/06 completed Prescrib ed Elsewher e: No Locat ion: [facility] odify By: prisca he DateTime : 04/26/20 15 03:59:30 PM Not Available Not Available Not Available COVID-19 test specimen collectio n DIRECTED 06/13 completed Not Available Not Available Not Available Afluria Qd 2019- (36 mos up)(PF)60 mcg (15 mcg x4)/0.5 mL IM syringe ADM 0.5ML IM UTD 06/10 completed Not Available Not Available Not Available EnilloRin g 0.12 mg-0.015 mg/24 hr vaginal ring Insert 1 vaginal ring every 3 weeks, leave in place for 3 weeks 2024 active Not Available Not Available Not Avai lable Vitals Date Recorded Body height Body mass index (BMI) Body weight Systolic blood pressure Diastolic blood pressure Provider Name and Address Organization Details Last Updated DateTime 06/12/2023 165.1 cm 25 kg/m2 84750.86 g 112 mm[Hg] 73 mm[Hg] Halina Jain [facility] 3 10:55:47 Date Recorded Body height Body mass index (BMI) Body weight Systolic blood pressure Diastolic blood pressure Provider Name and Address Organization Details Last Updated DateTime 07/13/2023 165.1 cm 24.6 kg/m2 89987.23 g 108 mm[Hg] 76 mm[Hg] Aracelis Lowmargie [facility] 3 12:13:25 Date Recorded Body height Body mass index (BMI) Body weight Systolic blood pressure Diastolic blood pressure Provider Name and Address Organization Details Last Updated DateTime 08/14/2023 165.1 cm 24.8 kg/m2 21214.26 g 110 mm[Hg] 73 mm[Hg] Dorota Ruelas [facility] 4 10:44:29 Date Recorded Body height Body mass index (BMI) Body weight Systolic blood pressure Diastolic blood pressure Provider Name and Address Organization Details Last Updated DateTime 06/23/2024 165.1 cm 25.5 kg/m2 22291.63 g 107 mm[Hg] 73 mm[Hg] Kellen Kameron [facility] 4 12:42:47 Date Recorded Body height Body mass index (BMI) Body weight Systolic blood pressure Diastolic blood pressure Provider Name and Address Organization Details Last Updated DateTime 09/15/2024 165.1 cm 25.8 kg/m2 79854.82 g 131 mm[Hg] 74 mm[Hg] TUTU Galan [facility] 5 15:12:24 Social History Question Answer Notes LastModified by Organizat ion Details LastModified Time Tobacco Smoking Status Never Smoker Not Available [facility] 06/15/2020 03:28:11 Do You Have An Advance Directive? No [email or web address] Information n ot available 09/15/2024 What Is Your Level Of Alcohol Consumption? Occasional Information not available 08/09/2022 Are You Blind Or Do You Have Difficulty Seeing? No Information n ot available 08/09/2022 What Is Your Level Of Caffeine Consumption? Occasional [email or web address] Information not available 08/14/2023 How Much Tobacco Do You Chew? None [email or web address] Information not available 09/15/2024 In The 14 Days Before Symptom Onset, Have You Had Close Contact With A Laboratory-confirm ed COVID-19 While That Case Was Ill? No [email or web address] Information n ot available 08/14/2023 In The 14 Days Before Symptom Onset, Have You Had Close Contact With A Person Who Is Under Investigation For COVID-19 While That Person Was Ill? No [email or web address] Information not available 08/14/2023 Have You Been To An Area Known To Be High Risk For COVID-19? No [email or web address] Information not available 08/14/2023 Are You Deaf Or Do You Have Serious Difficulty Hearing? No Information not available 08/09/2022 What Type Of Diet Are You Following? REGULAR Information n ot available 08/09/2022 What Is The Highest Grade Or Level Of School You Have Completed Or The Highest Degree You Have Received? [id number] [email or web address] Information not available 09/15/2024 Are There Any Guns Present In Your Home? No [email or web address] Information not available 09/15/2024 Do You Use Protection During Sex? No [email or web address] Information not available 09/15/2024 Do You Use Your Seat Belt Or Car Seat Routinely? Yes [email or web address] Information not available 08/14/2023 Do You Have Smoke And Carbon Monoxide Detectors In Your Home? Yes [email or web address] Information not available 08/14/2023 How Much Tobacco Do You Smoke? No [email or web address] Information not available 09/15/2024 Do You Feel Stressed (tense, Restless, Nervous, Or Anxious, Or Unable To Sleep At Night)? [id number] [email or web address] Information not available 08/14/2023 Do You Use Any Illicit Or Recreational Drugs? No [email or web address] Information not available 08/14/2023 Do You Use Sunscreen Routinely? Yes [email or web address] Information not available 08/14/2023 Has Tobacco Cessation Counseling Been Provided? No [email or web address] Information not available 08/14/2023 Have You Used IV Drugs? No [email or web address] Information not available 09/15/2024 Do You Or Have You Ever Used Any Other Forms Of Tobacco Or Nicotine? No [email or web address] Information not available 08/14/2023 Sex: Unknown Functional Status Question Answer Note LastModified by Organizat ion Details LastModified Time Do you have difficulty walking or climbing stairs? No Information not available 08/09/2022 Are you able to walk? [email or web address] Information not available 08/09/2022 Are you able to care for yourself? Yes Information not available 08/09/2022 Do you have difficulty dressing or bathing? No Information not available 08/09/2022 What is your exercise level? Occasional [email or web address] Information not available 09/15/2024 Mental Status None recorded. Family History Relationship Description Onset Age of this Age Resolved Age Notes LastModified by Organization Details LastModified Time Maternal Grandfather History of transient ischemic attack [email or web address] Not available 2024 15:03:51 Maternal Grandfather Carcinoma in situ of lung [email or web address] Not available 10/2024 15:03:51 Paternal Grandmother Suspected ovarian cancer [email or web address] Not available 2024 15:03:51 Paternal Grandmother Carcinoma in situ of thyroid gland [email or web address] Not available 2024 15:03:51 Maternal Grandmother Dysrhythmia management [email or web address] Not available 09/15 15:03:51 Maternal Grandmother Carcinoma in situ of breast [email or web address] Not available 2024 15:03:51 Unspecified Relation Heart disease [email or web address] Not available 2019 14:53:14 Unspecified Relation Acute stroke [email or web address] Not available 10/2024 15:03:51 Mother Diabetes mellitus [email or web address] Not available 2019 14:53:42 Sister Asthma [email or web address] Not available 14:53:49 Father Myocardial infarction [email or web address] Not available 03/03 14:53:56 Medical History Condition Response Allergies (Food, seasonal, environmental ) Y Other N Breast Cancer N Drug/Latex Allergies/Reactions Y Blood Transfusion N Lung Disease N Dermatologic Disorders N Defects or Inherited Disease N Breast Problem N Gestational Diabetes N Hematologic disorders N Anesthesia Complications N History of STI N Deep Vein Thrombosis N Polycystic ovary syndrome N Anxiety Disorder Y Autoimmune disease N Arthritis N Infertility N Polyps N Acid Reflux (GERD) N History of abnormal pap N Cancer N Stroke N Varicosities N Neurologic/Epilepsy N Endometriosis N High Cholesterol N Headaches N Fibromyalgia N Kidney Disease N Heart Problems N Kidney or Bladder Problems N Thyroid Problems N GI Problems N Eating Disorder N Anemia N Art (IVF or FET) N Psychiatric Illness N Ovarian Cancer N Diabetes N Pulmonary (TB, Asthma) N Hepatitis/Liver Disease N No Past Medical History N Eczema N Urinary Tract Infection N Abuse/Domestic Violence N Asthma Y Trauma/Violence N Depression/ depression Y Heart Disease N Pre-Eclampsia N Hypertension N Osteoporosis N Thrombophilias N Gynecological History Statement/Question Response Abnormal Pap Y Date of Last Mammogram Flow Moderate Date of LMP Was last menstrual period normal N STIs/STDs N HPV Vaccine N Duration of Flow (days) 4 Current Control Method Partner Vas ectomy Are cycles usually normal N Frequency of Cycle (Q days) Sexually Active? Y Menses Monthly N Age of first menstrual cycle 14 Date of Last Pap Smear 08/14/2023 Sexual Problems? N Desired Control Method None LMP Approximate N Obstetrics History GPAL:G 4 P 3 0 1 3 Type Value Full Term 3 Spontaneous 1 Living 3 Total 4 Past Encounters Encounter ID Performer Location Encounter Start Date Encounter Closed Date Diagnosis/Indication Diagnosis SNOMED-CT Code Diagnosis ICD10 Code Diagnosis [id number] [address] [address] 03/03/2020 17:34:17 03/03/2020 18:00:21 Mass of axilla 890692043 R22.2 N63.21 Left breast extending to left breast swollen, puffy area. Still breast feeding. No pain. Exam is somewhat indetermin ate so we agreed to pursue US imaging. Orders given. Time spent in visit is a total of 15 mins with at least 50% of visit consisting of counseling and review of plan of care. [id number] Sharon Franz [facility] [address] [address] 03/22/2020 17:47:26 03/23/2020 10:29:43 Gynecologic examination [id number] Z01.419 Take Calcium with Vitamin D 1200mg daily if not receiving in daily diet. It is strongly advised to have an annual flu shot and up can obtain at most pharmacies . If you have not had a TDap shot in the last 10 years you should obtain one as well. Discussed with patient & provided with informatio n regarding Gardisil vaccine to prevent the 4 strains for HPV that cause cervical cancer if under age 26. Encourage safe sexual practices, to use condoms and limit partners if not already in a monogamous relationsh ip. Do monthly self breast exams. Pt is being scheduled with [facility] for evaluation . Have mammogram yearly or every other year depending on family history. BRCA testing is now available for patients with strong genetic history of female cancer. If interested contact the office. Engage in daily exercise of low impact aerobic exercise 45-60 minutes 4-5 times weekly. Avoid tobacco and illicit drugs as well as using moderation with alcohol intake less than 1-2 8 oz beverages daily. This lifestyle behavior pattern will lead to less health conditions and longer life span. If BMI greater than 25 weight watchers or dietary consult advised. Patient received above instructio ns, and questions have been answered. If you have any questions please call or respond to this email. Patient was made aware of the patient portal and may obtain a paper copy of today's plan if desired. [id number] [facility] [address],[place] [address] 04/21/2020 16:56:26 04/22/2020 15:38:47 Disorder of breast [id number] N64.9 Yeast of the breast. Symptoms resolved with use of diflucan. [facility] [id number] [address],[place] [address] 06/13/2021 10:50:14 06/13/2021 12:07:55 Gynecologic examination 17093557 Z01.419 Z11.51 Take Calcium with Vitamin D 1200mg daily if not receiving in daily diet. It is strongly advised to have an annual flu shot and up can obtain at most pharmacies . If you have not had a TDap shot in the last 10 years you should obtain one as well. Discussed with patient & provided with informatio n regarding Gardisil vaccine to prevent the 4 strains for HPV that cause cervical cancer if under age 26. Encourage safe sexual practices, to use condoms and limit partners if not already in a monogamous relationsh ip. Do monthly self breast exams. Pt is being scheduled with [facility] for evaluation . Have mammogram yearly or every other year depending on family history. BRCA testing is now available for patients with strong genetic history of female cancer. If interested contact the office. Engage in daily exercise of low impact aerobic exercise 45-60 minutes 4-5 times weekly. Avoid tobacco and illicit drugs as well as using moderation with alcohol intake less than 1-2 8 oz beverages daily. This lifestyle behavior pattern will lead to less health conditions and longer life span. If BMI greater than 25 weight watchers or dietary consult advised. Patient received above instructio ns, and questions have been answered. If you have any questions please call or respond to this email. Patient was made aware of the patient portal and may obtain a paper copy of today's plan if desired. [id number] JEFERSON Pickens [facility] [address],[place] [address] 08/09/2022 11:01:16 08/09/2022 14:32:22 Breast lump [id number] N63.0 Irregular periods 377352 07 N92.6 Abdominal pain 34166462 R10.9 Gynecologi c examination 18578877 Z01.419 Z11.51 Suggested Calcium with Vitamin D 1200-1500m g daily. Patient advised to get an annual flu shot in the fall and she could obtain at [facility] or [facility] clinic. Also to obtain TDap vaccinatio n if you have not had one in the last 10 years. Recommend yearly mammograms . Encouraged monthly self breast exams. Encourage safe sexual practices, to use condoms and limit partners if not already in a monogamous relationsh ip. Engage in daily exercise of low impact aerobic exercise 45-60 minutes 4-5 times weekly. Avoid tobacco and illicit drugs as well as using moderation with alcohol intake less than 1-2 8 oz beverages daily. This lifestyle behavior pattern will lead to less health conditions and longer life span. If BMI greater than 25 weight watchers or dietary consult advised. All questions have been answered. Patient appears to understand informatio n, but if you have any questions please call or respond to this email. WWEBC - Partner with vasectomyR ecently had 2 periods in 1 month, prior to that periods have been monthly. Has been under more stress recently. Also having some abdominal pain in the upper abdomen, comes and goes. No current pain. No associated wtih bowel movements. We agreed to labs and pelvic u/s for further evaluation .ED precaution s discussedH x of abnormal pap 20 years agopap done todaySTI testing declinedBi lateral breast lumps palpated at around 12 oclock, unable to determine fibrocysti c changes vs mass. Last mammogram in Apr. She has seen a breast specialist previously . We agreed to diagnostic imaging and return to breast specialist for consultFam shreyas ellington of M with BC in her 70s, genetic testing discussedR TC for pelvic u/s and f/u Time spent in visit is a total of 45 mins with at least 50% of visit consisting of counseling and review of plan of care. [id number] Christi Sanchez [facility] [address],[place] [address] 08/15/2022 12:32:18 08/15/2022 14:54:50 Irregular periods 11561873 N92.6 [id number] JEFERSON Pickens [facility] [address],[place] [address] 08/16/2022 14:14:29 08/16/2022 15:45:50 Lesion of cervix 599339470 N88.9 Today we reviewed recent TVUS - possible cervical polypDiscu ssed polyps in-depth in relation to irregular bleedingNo obvious cervical polyp noted on speculum exam todayWe agreed to MD consult for further evaluation /managemen tMD consult scheduledB lood work pending - will update patient with results when availableR TC for MD consult Time spent in visit is a total of 25 mins with at least 50% of visit consisting of counseling and review of plan of care. Irregular periods 421096 07 N92.6 [id number] Nabila Mayers MD [facility] [address],[place] [address] 08/22/2022 10:04:28 08/22/2022 11:01:37 Polyp of cervix 57953617 N84.1 Corpus luteum cyst 35528 2008 N83.10 [id number] JEFERSON Pickens [facility] [address],[place] [address] 06/12/2023 10:24:52 06/12/2023 11:34:30 Tenderness of breast 85788459 N64.4 Bilateral breast tenderness in outer quadrantsw e agreed to update diagnostic shari/breast u/sorders given, encouraged to schedulede crease caffeine intake recommende df/u wit breast specialist pending imaging Time spent in visit is a total of 20 mins with at least 50% of visit consisting of counseling and review of plan of care. [id number] JEFERSON Pickens [facility] [address] [address] 07/13/2023 12:01:25 07/13/2023 12:55:42 Tenderness of breast 07523471 N64.4 Recommende d f/u with surgeon who performed lipofillin g procedure as well f/u with [facility] breast specialist for further evaluation .We agreed to additional antibiotic courseStri ct precaution s discussed Patient is to contact office or go to nearest ED/Urgent care if fever >/= 100.1, pain, excessive bleeding, unusual drainage or swelling in area of concern; or experienci ng worsening sx's or new onset of concerning sx's. Understand ing verbalized . All questions answered to patient satisfacti on. Time spent in visit is a total of 20 mins with at least 50% of visit consisting of counseling and review of plan of care. [id number] JEFERSON Pickens [facility] [address] [address] 08/14/2023 10:29:38 08/14/2023 13:48:38 Gynecologic examination 72664097 Z01.419 Z11.51 WWEBC - partner with vasectomyp ap updatedSTI testing declineden couraged annual exam with [facility] in 1 yr or sooner if needed Suggested Calcium with Vitamin D daily. Patient advised to get an annual flu shot in the fall and she could obtain at [facility] or [facility] take care clinic. Also to obtain TDap vaccinatio n if you have not had one in the last 10 years. Recommend yearly mammograms . Encouraged monthly self breast exams. Encourage safe sexual practices, to use condoms and limit partners if not already in a monogamous relationsh ip. Engage in daily exercise of low impact aerobic exercise 45-60 minutes 4-5 times weekly. Avoid tobacco and illicit drugs. This lifestyle behavior pattern will lead to less health conditions and longer life span. If BMI greater than 25 dietary consult advised. All questions have been answered. Patient appears to understand informatio n, but if you have any questions please call or respond to this email. Breast lump [id number] N63 .0 diagnostic imaging done 07/03/2023 referral placed for breast specialist consult [id number] JEFERSON Pickens [place] [address] [address] 09/15/2024 15:02:50 09/15/2024 16:23:21 Gynecologic examination 93772364 Z01.419 Z11.51 WWEBC - NuvaRingPa p - UTD/not indicated todaySTI screen - declinedMa mmogram - UTDColon cancer screening - n/aRoutine labs - [facility] in 1 yr or sooner if needed Suggested Calcium with Vitamin D daily. Patient advised to get an annual flu shot in the fall and she could obtain at local pharmacy. Also to obtain TDap vaccinatio n if you have not had one in the last 10 years. Recommend yearly mammograms . Encouraged monthly self breast exams. Encourage safe sexual practices, to use condoms and limit partners if not already in a monogamous relationsh ip. Engage in regular exercise. Avoid tobacco and illicit drugs. This lifestyle behavior pattern will lead to less health conditions and longer life span. If BMI greater than 25 dietary consult advised. All questions have been answered. Contracept ion care management 868976255 Z30.9 desires to continue with Nuvaringre fills sent x 12 months, r/b/a reviewed [id number] Darion Grimaldo MD [place] [address] [address] 06/23/2024 12:33:12 06/23/2024 13:26:54 Menopausal symptom 37439748 N95.1 44-year-ol d female with menopausal symptoms. Patient's labs suggestive of menopause. She has a very high FSH. Symptoms indicative of menopause include night sweats, hot flashes, vaginal dryness. We discussed treatment. She has no medical contraindi cations to hormone replacemen t therapy or combined hormonal contracept ion. We agreed to NuvaRing. She has had NuvaRing in the past. We talked about her neurologic /cognitive effects of menopause. She has had some memory concerns and Mentation changes. We agreed to continuous NuvaRing. I discussed the risks, benefits, and alternativ es to the medication . I discussed instructio ns and precaution s. Health Concerns Section Related Observation LastModified by Organization Detai ls LastModified Time None Recorded Concern Status LastModified by Organization Details LastModified Time None Recorded Advance Directives Directive N: Payers Encounter Date Sequence Insurance Name Policy Number Policy Gonzáles Covered Member ID Gonzáles Member ID Guarantor Name 06/12/2023 1 [facility] [id number] Priya Chow [id number] Priya Chow 07/13/2023 1 [facility] [id number] Priya Chow [id number] Priya Chow 08/14/2023 1 [facility] [id number] Priya Chow [id number] Priya Chow 06/23/2024 1 [facility] [id number] Priya Chow [id number] Priya Chow 09/15/2024 1 [facility]LY [facility] [id number] Priya Chow [id number] Priya Chow Notes Date Note Type Note Provider Name and Address Organization Details Recorded Time 3 text/html 43yopresents for breast tendernessbilateral breast tenderness in the outer quadrants x 1 monthhurts to wear bras, feels lumpy/tender.Denies any new bras, injuries, or increased caffeine intakedrinks about 1 cup of coffee per daypartner with vasectomy for BC saw a breast specialist last 08/2022 for bilateral breast lumps. Benign imaging and no biopsy needed. JEFERSON Pickens [address], [place], [address], [facility] 06/12/2023 11:28:16 3 text/html 43yopresents for f/u breast examh/o lipofilling of breast done 11/2022 at surgical center [facility] in office 06/12/2023 for bilateral breast tenderness. Diagnostic imaging ordered, while awaiting imaging she developed redness and warmth in her left lower breast. Imaging suggested potential breast infection and antibiotic course recommended by radiologist - keflex x 10 days prescribed and she just completed medication course. Symptoms have greatly improved, decrease in redness of left breast, no longer warm/hot, tenderness bilaterally remains.she is an established patient of [facility] breast clinic, has seen Dr. Harris for evaluation of left breast lump - last 08/2022, no biopsy requiredneg n/v/fneg flu-like symptomsneg nipple dischargeneg SOB, dizzines, fatigue JEFERSON Pickens [address], [place], [address], [facility] 07/13/2023 12:47:35 4 text/html Annual GYNReported bypatient.Menstrual cycle:Normal menses Urinary symptoms:No hematuria; No incontinence Vulva:No genital lesion Vagina:Normal vaginal discharge Breast:No breast pain; No breast lump; No nipple discharge Current Contraception:Satisfied with current contraception; Partner had vasectomy Sexual complaints:No sexual complaints; No pain during intercourse; Normal libido Menopausal Symptoms:No menopausal symptoms; Normal vaginal lubrication Psychological symptoms:No depression; No anxiety; No PMDD Preventive measures:Encourage self breast examination; Encourage regular exercise; Encourage no tobacco use; Encourage regular mammograms starting age 40Notes:hx of abnormal pap 2002 - normal paps sincelast pap 07/2022 - normalh/o lipofilling of bilateral breast done 11/2022. Has had a few episodes of pain/redness that have required antibiotics since procedure. Currently asymptomatic.. Last mammogram 07/03/2023 - possible left breast infection/recommended antibiotic course and repeat diagnostic imaging in 6 months. Completed antibiotics and symptoms improved. Saw the surgeon that did the procedure last month in [place] for f/u - states everything was normal. Wants to see a breast specialist for second opinion. JEFERSON Pickens [address], [place], [address], [facility] 08/14/2023 13:44:14 4 text/html 44-year-old female with menopausal symptoms. Patient's labs suggestive of menopause. She has a very high FSH. Symptoms indicative of menopause include night sweats, hot flashes, vaginal dryness. We discussed treatment. She has no medical contraindications to hormone replacement therapy or combined hormonal contraception. We agreed to NuvaRing. She has had NuvaRing in the past. We talked about her neurologic /cognitive effects of menopause. She has had some memory concerns and Mentation changes. We agreed to continuous NuvaRing. I discussed the risks, benefits, and alternatives to the medication. I discussed instructions and precautions. Darion Grimaldo MD [address], [place], [address], [facility] 06/23/2024 13:14:09 5 text/html Annual GYNReported bypatient.Menstrual cycle:Normal menses Urinary symptoms:No hematuria; No incontinence Vulva:No genital lesion Vagina:Normal vaginal discharge Breast:No breast pain; No breast lump; No nipple discharge Current Contraception:Satisfied with current contraception; Nuvaring Sexual complaints:No sexual complaints; No pain during intercourse; Normal libido Menopausal Symptoms:No menopausal symptoms; Normal vaginal lubrication Psychological symptoms:No depression; No anxiety; No PMDD Preventive measures:Encourage self breast examination; Encourage regular exercise; Encourage no tobacco use; Encourage regular mammograms starting age 40Notes:44yo wweBC - NuvaRing and partner with vasectomylast pap 08/2023 : nilm, HPV (-)h/o abnormal pap in 2002, normals sincemammogram UTD, last 01/2024 started NuvaRing 3 months ago, has had some BTB/irregular periods JEFERSON Pickens [address], [place], [address], [facility] 09/15/2024 16:00:33 OBGyn Episode Ob Episode Information Episode Created Date Number of Fetuses Patient Bloodtype Patient rh Status Prepregnancy Weight lbs Domestic Partner Domestic Partner Phone Father Name Service Desk Manager Status 03/03/20 20 1 CLOSED Fetus Data First Name Last Name Admitted to NICU Weight (g) Sex Living Outcome Pediatric Complications Fetus ID Race Codes Race Delivery Type 3175.14 4 F Full Term 3092 Vaginal Delivery Gerhard Calculation Initial Gerhard Date Initial Exam Date Initial Exam Provider Initial Ultrasound Date Last Menstrual Period Date Ultra Sound Weeks Gestation 0 Eighteen To Twenty Week Gerhard Update Ultra Sound Date Fundal Height At Umbil Quickening Date Ultra Sound Latest Weeks Gestation Final Gerhard Confirmed By Final Gerhard Confirmed Date Final Gerhard Date Ultra Sound Latest Days Gestation 0 0 Menstrual History Last Menstrual Date Menses Monthly On Bcp Conception Prior Menses Frequency Hcg Plus Date Menarche Onset Age Delivery Information Delivery Date Delivery Type Labor Anesthesia Weeks Gestation Incision Type Labor Labor Length Hrs Delivered By Post Complications Tubal Sterilization Discharge Date Comments 1 37 Discharge Information Feeding Method Contraceptive Method Maternal HG B and HCT Levels Ob Episode Information Episode Created Date Number of Fetuses Patient Bloodtype Patient rh Status Prepregnancy Weight lbs Domestic Partner Domestic Partner Phone Father Name Service Desk Manager Status 03/03/20 20 1 CLOSED Fetus Data First Name Last Name Admitted to NICU Weight (g) Sex Living Outcome Pediatric Complications Fetus ID Race Codes Race Delivery Type 3968.93 M Full Term 3093 Vaginal Delivery Gerhard Calculation Initial Gerhard Date Initial Exam Date Initial Exam Provider Initial Ultrasound Date Last Menstrual Period Date Ultra Sound Weeks Gestation 0 Eighteen To Twenty Week Gerhard Update Ultra Sound Date Fundal Height At Umbil Quickening Date Ultra Sound Latest Weeks Gestation Final Gerhard Confirmed By Final Gerhard Confirmed Date Final Gerhard Date Ultra Sound Latest Days Gestation 0 0 Menstrual History Last Menstrual Date Menses Monthly On Bcp Conception Prior Menses Frequency Hcg Plus Date Menarche Onset Age Delivery Information Delivery Date Delivery Type Labor Anesthesia Weeks Gestation Incision Type Labor Labor Length Hrs Delivered By Post Complications Tubal Sterilization Discharge Date Comments 9 40 Discharge Information Feeding Method Contraceptive Method Maternal HG B and HCT Levels Ob Episode Information Episode Created Date Number of Fetuses Patient Bloodtype Patient rh Status Prepregnancy Weight lbs Domestic Partner Domestic Partner Phone Father Name Service Desk Manager Status 03/03/20 20 1 CLOSED Fetus Data First Name Last Name Admitted to NICU Weight (g) Sex Living Outcome Pediatric Complications Fetus ID Race Codes Race Delivery Type , Spontane ous 3094 Gerhard Calculation Initial Gerhard Date Initial Exam Date Initial Exam Provider Initial Ultrasound Date Last Menstrual Period Date Ultra Sound Weeks Gestation 0 Eighteen To Twenty Week Gerhard Update Ultra Sound Date Fundal Height At Umbil Quickening Date Ultra Sound Latest Weeks Gestation Final Gerhard Confirmed By Final Gerhard Confirmed Date Final Gerhard Date Ultra Sound Latest Days Gestation 0 0 Menstrual History Last Menstrual Date Menses Monthly On Bcp Conception Prior Menses Frequency Hcg Plus Date Menarche Onset Age Delivery Information Delivery Date Delivery Type Labor Anesthesia Weeks Gestation Incision Type Labor Labor Length Hrs Delivered By Post Complications Tubal Sterilization Discharge Date Comments 0 Discharge Information Feeding Method Contraceptive Method Maternal HG B and HCT Levels Ob Episode Information Episode Created Date Number of Fetuses Patient Bloodtype Patient rh Status Prepregnancy Weight lbs Domestic Partner Domestic Partner Phone Father Name Service Desk Manager Status 03/22/20 20 1 CLOSED Fetus Data First Name Last Name Admitted to NICU Weight (g) Sex Living Outcome Pediatric Complications Fetus ID Race Codes Race Delivery Type 3543.46 0704 F Full Term 3687 Vaginal Delivery Gerhard Calculation Initial Gerhard Date Initial Exam Date Initial Exam Provider Initial Ultrasound Date Last Menstrual Period Date Ultra Sound Weeks Gestation 0 Eighteen To Twenty Week Gerhard Update Ultra Sound Date Fundal Height At Umbil Quickening Date Ultra Sound Latest Weeks Gestation Final Gerhard Confirmed By Final Gerhard Confirmed Date Final Gerhard Date Ultra Sound Latest Days Gestation 0 0 Menstrual History Last Menstrual Date Menses Monthly On Bcp Conception Prior Menses Frequency Hcg Plus Date Menarche Onset Age Delivery Information Delivery Date Delivery Type Labor Anesthesia Weeks Gestation Incision Type Labor Labor Length Hrs Delivered By Post Complications Tubal Sterilization Discharge Date Comments 9 38 Discharge Information Feeding Method Contraceptive Method Maternal HG B and HCT Levels
--- OUTSIDE RECORDS SUMMARY | 2024-12-08 15:35 | XMS_ITS ---
Author Organization [facility] [employer] [place] ([address]) Address [address] [place] [address] Care Team Providers Care Lines Tender Name Role Phone Fannyeder Jagdeep Primary Care Provider Unavailab le Karine Valdivia Unavailable [phone] ZZ-Migration, Provider Unavailable Unavailab adele Allergies Allergen (clinical drug ingredient) Drug/Non Drug Allergy documented on EMR Reaction Allergy Type Onset Date Status sulfamethoxazole / trimethoprim Bactrim dizziness, shortness of breath, tachycardia taken for skin infection Drug Allergy Active [facility] Encounter Medications Medication SIG (Take, Route, Frequency, Duration) Notes Start Date End Date Status Famotidine 20 MG 1 tab(s) orally twice a day for 30 days 10/10/2023 Active ZyrTEC Allergy 10 MG 1 tab(s) orally once a day Active Cetirizine HCl 10 MG 1 tab(s) orally once a day for 30 days 10/10/2023 Active Albuterol Sulfate *Please review and pick correct strength-formulation from [facility] options. If intended option is not shown, discontinue and re-order from Quick Search* Active Encounters Encounter Location Date Provider Diagnosis [place]AK[place] - [address] [address] 01/26/2024 Provider ZZ-Migration Dermatitis, unspecified L30.9 Assessments Encounter Date Diagnosis (ICD Code) Assessment Notes Treatment Notes Treatment Clinical Notes Section Notes 01/26/2024 Dermatitis, unspecified (ICD-10 - L30.9) Plan Of Treatment Medication Medication Name Sig Start Date Stop Date Notes Famotidine 20 MG 1 tab(s) orally twic e a day for 30 days 10/10/2023 Cetirizine HCl 10 MG 1 tab(s) orally onc e a day for 30 days 10/10/2023 Progress Notes * Topher SINGEROB: [birth year] (44 yo F)Acc No.[id number]:01/26/2024 Patient: Priya DAVID Provider: Lynne Santoro :1980 A ge:43 Y S ex:Female Date:01/26/2024 Address:[address] [place] [address], [facility] Pcp:Jagdeep Burdick Subjective: * Chief Complaints: * [...] * Procedure Codes: * Electronic signature of Prov ider ZZ-Migration on 12/08/2024 at 03:35 PM CDT Sign off status: Pending * Provider: Lynne Santoro Date: 01/26/2024 Generated for Jalen manzanares/Cheryle/Diego on: 0 12/08/2024 03:35 PM CDT
--- OUTSIDE RECORDS SUMMARY | 2024-12-08 15:35 | XMS_ITS | Patient Health Record ---
Author Organization [facility] [employer] [place] ([address]) Address [address] [place] [address] Care Team Providers Care Balance Wheel Hand Filer Name Role Phone OdiliacorinaJagdeep goldsmith Primary Care Provider Unavailab le Karine Valdivia Unavailable [phone] [facility]Migration, Provider Unavailable Unavailab le Allergies Allergen (clinical drug ingredient) Drug/Non Drug Allergy documented on EMR Reaction Allergy Type Onset Date Status sulfamethoxazole / trimethoprim Bactrim dizziness, shortness of breath, tachycardia taken for skin infection Drug Allergy Active Reason For Referral No Information Medications Medication SIG (Take, Route, Frequency, Duration) Notes Start Date End Date Status Famotidine 20 MG 1 tab(s) orally twice a day for 30 days 10/10/2023 Active ALBUTEROL Active ZyrTEC Allergy 10 MG 1 tab(s) orally once a day Active Cetirizine HCl 10 MG 1 tab(s) orally once a day for 30 days 10/10/2023 Active Albuterol Sulfate *Please review and pick correct strength-formulation from [facility] options. 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 Problems Problem Type SNOMED Code ICD Code Onset Dates Problem Status W/U Status Risk Notes Problem Chronic allergic conjunctivitis (69207201) Other chronic allergic conjunctivitis (H10.45) Active confirmed Problem Allergic rhinitis caused by pollen (disorder) (05169027) Allergic rhinitis due to pollen (J30.1) Active confirmed Problem Allergic rhinitis (59570258) Other allergic rhinitis (J30.89) Active confirmed Problem Uncomplicated moderate persistent asthma (042088994) Moderate persistent asthma, uncomplicated (J45.40) Active confirmed Problem Allergic rhinitis caused by animal hair and dander (387791194286724) Allergic rhinitis due to animal (cat) (dog) hair and dander (J30.81) Active confirmed Problem Allergy status t o other antibiotic agents (Z88.1) Active confirmed Encounters Encounter Location Date Provider Diagnosis [address] [address] 01/26/2024 Provider JENNY-Yvan Dermatitis, unspecified L30.9 Assessments Encounter Date Diagnosis (ICD Code) Assessment Notes Treatment Notes Treatment Clinical Notes Section Notes 01/26/2024 Dermatitis, unspecified (ICD-10 - L30.9) Plan Of Treatment Pending Test Test Name Order Date THYROGLOBULIN ANTIBODIES 10/10/2023 Insurance Providers Payer Name Payer Address Payer Phone Subscriber Number Group Number Insured Name Patient Relationship to Insured Coverage Start Date Coverage End Date Freddie Rodrigez [id number] [place] [address] [id number] Priya Chow Self - patient is the insured Medical (General) History Medical History History ICD Code Asthma Allergic rhinitis due to pollen J30.1 Dermatitis, unspecified L30.9 Surgical History Surgery Date(Month/Year) hip surgery 2016
--- OUTSIDE RECORDS SUMMARY | 2024-12-08 15:36 | XMS_ITS | Clinical Summary ---
Author Organization [facility] Address [address] [place] [address] Care Team Providers Care Book Author Name Role Phone Unavailable Primary Care Provider Unavailabl e Social History Tobacco Use Types Packs/Day Years Used Date Smoking Tobacco: Never Assessed Comments Unknown Sex and Gender Information Value Date Recorded Sex Assigned at Not on file Legal Sex Female 7:23 PM CDT Gender Identity Not on file Sexual Orientation Not on file Plan of Treatment Health Maintenance Due Date Last Done Comments Cervical Cancer Screening Pa p Smear (Age 30 to 64) Every 3 Years 1981 Annual Physical 1984 Hepatitis C 1999 DTaP, Tdap and Td Vaccines ( 1 - Tdap) 2000 Hepatitis B Vaccines (1 of 3 - 19+ 3-dose series) 2000 Cervical Cancer Screening Pa p with HPV Testing (Age 30 to 64) Every 5 Years 2011 Cervical Cancer Screening with HPV 2011 Mammogram Screening 2021 COVID-19 Vaccine ( - 2023-2 5 season) 2024 HPV Vaccines Aged Out No longer eligi ble based on patient's age to complete this topic Meningococcal B Vaccine Aged Out No l onger eligible based on patient's age to complete this topic Meningococcal Vaccine Aged Out No kori pari eligible based on patient's age to complete this topic Pneumococcal Vaccine: Pediat rics (0 to 5 Years) and At-Risk Patients (6 to 49 Years) Aged Out No longer eligible b ased on patient's age to complete this topic RSV Immunizations Under 20 Months Aged Out No longer eligible based on patient's age to complete this topic
--- OUTSIDE RECORDS SUMMARY | 2024-12-08 15:36 | XMS_ITS | Continuity of Care Document ---
Author Organization [facility] Address [address] [place] [address] [place] [address] Phone Care Team Providers Care Elastic Yarn Twister Helper Name Role Phone Dasilva OD, Genaro Unavailable Unavailable Procedures Procedure Date Office/outpatient Visit, Est Office/outpatient Visit, Est Office/outpatient Visit, Est Office/outpatient Visit, New Advance Directives Directive Yes / No Effective Date File Name No Information Encounters Encounter Description Practice Location Reason(s) For Visit Diagnoses Date Provider Providers Copied on Encounter Office/outpat ient Visit, [facility], [address] [place] [address] [address], [place], [place], [id number], tel:[phone] [facility] No Information 1-201 0 Dasilva OD Genaro. [address] , [address], [place], [place], [facility], . tel:[phone] Office/outpat ient Visit, [facility], [address] [place] [address] [address], [place], [place], [id number], [place] tel:[phone] [facility] No Information -201 0 Dasilva OD Genaro. [address] , [address], [place], [place], [facility], . tel:[phone] Office/outpat ient Visit, [facility], [address] [place] [address] [address], [place], [place], [id number], tel:[phone] [facility] No Information 2-201 0 Doisy Edward. [address] [facility] , [address], [place], [address], [place]. tel:[phone] Office/outpat ient Visit, [facility], [address], [place], [place], [id number], [place] tel:[phone] [facility] No Information 0-201 0 Dasilva OD Genaro. [address] [facility] , [address], [place], [address], [place]. tel:[phone] Family History Family Member Type Diagnosis Age At Onset No Information Payers Payer name Insurance type Covered libertarian ID Authorbigga luisarpit(s) [facility] Custom Care 09 [id number] Social History Type Description Quantity Date Captured Comments Sex Female Smoking Status No Information Chief Complaint And Reason For Visit No Information Reason For Referral Reason For Referral No Information History Of Present Illness Encounter Date Complaint History Of Prese nt Illness No Information Functional Status Date Functional Assessmen t No Information Instructions Date Instruction Additional Infor mation No Information Assessments Type Assessment Date No Information Patient Care Teams Name Effective Dates (start - stop) Status Members No Information
--- OUTSIDE RECORDS SUMMARY | 2024-12-08 15:36 | XMS_ITS | Clinical Summary ---
Author Organization [facility] [employer] [place] Address [address] [place] [address] Care Team Providers Care Ob/Gyn Doctor Name Role Phone Jagdeep Burdick DO Primary Care Provider [phone] Karine Valdivia MD Unavailable [phone] Allergies No known active allergies Medications cetirizine (ZyrTEC) 10 mg tablet Take 1 tablet (10 mg total) by mouth daily Active aspirin 325 mg EC tablet Take 1 tablet by mouth every 12 hours until finished 30 tablet 7 Active Additional Information Patient not taking.Reported on 08/24/2022 ALPRAZolam (XANAX) 0.25 mg tablet Take 0.25 mg by mouth daily as needed 2 Active benzonatate (TESSALON) 100 mg capsule TAKE 1 CAPSULE BY MOUTH THREE TIMES DAILY NEEDED FOR COUGH 2 Active albuterol HFA (PROVENTIL HFA,VENTOLIN HFA,PROAIR HFA) 90 mcg/actuation inhaler INHALE 2 PUFFS BY MOUTH EVERY 4 TO 6 HOURS NEEDED FOR SHORTNESS OF BREATH OR WHEEZING 2 Active fluconazole (DIFLUCAN) 150 mg tablet Take 1 tablet (150 mg total) by mouth once Active hydrocortisone 2.5 % creamIndication s:Dermatitis Apply topically 2 (two) times a day as needed for irritation or rash 30 g 2 3 Active al & mag hydroxide with simethicone-dip henhydramine-li docaine (MAGIC MOUTHWASH) suspension 1-1-1 Swish and swallow 10 mL every 4 (four) hours as needed (sore throat) 100 mL 3 Active Additional Information Patient not taking.Reported on 12/31/2023 cholestyramine (QUESTRAN) 4 gram powder DISSOLVE 4 GRAMS IN FLUID AND DRINK BY MOUTH TWICE DAILY WITH A MEAL. AVOID OTHER MEDICATIONS WITHIN 1 HOUR BEFORE OR 4-6 HOURS AFTER DOSE 4 Active triamcinolone (KENALOG) 0.1 % cream APPLY TOPICALLY TO THE AFFECTED AREA TWICE DAILY NEEDED FOR RASH 4 Active Active Problems Problem Noted Date Diagnosed Date Mass of breast 08/24/2022 Disorder of 08/04/2019 38 weeks gestation of 06/04/2019 Laceration of perineum in female 06/04/2019 Normal in multigravida 06/04/2019 Term delivered 06/04/2019 35 weeks gestation of 05/19/2019 Uterine size-date discrepancy 05/19/2019 Urinary tract infectious disease 01/02/2017 Encounter for prescription of oral contraceptive s 07/28/2016 Female genital symptoms 04/22/2015 Leukocytosis 04/22/2015 test negative 04/22/2015 Anxiety 06/17/2014 Cephalalgia 06/17/2014 Headache 05/27/2014 Migraine 05/27/2014 Generalized anxiety disorder 10/11/2011 Delivery normal 02/27/2011 Single live 02/27/2011 screening for malformation using ultra sonics 02/26/2011 Intrauterine growth restrict ion (IUGR) affecting care of mother 02/15/2011 Surgical History Surgery Date Site/Laterality Comments HIP SURGERY 06/25/2017 Right GALLBLADDER SURGERY 12/12/2023 Medical History Medical History Date Comments Asthma Family History Medical History Relation Name Comments Breast cancer Maternal Grandfather Diabetes Mother Relation Name Status Comments Maternal Grandfather Mother Social History Tobacco Use Types Packs/Day Years Used Date Smoking Tobacco: Never Smokeless Tobacco: Never Tobacco Cessation:Counseling Given: Not Answered AUDIT-C Answer Date Recorded Q1: How often do you have a drink containing alc ohol? 2-3 times a week 12/31/2023 Average Number of Drinks Not on file 024 Frequency of Binge Drinking Not on file 12/12 Personal Safety Answer Date Recorded Getting School Help Needed Not on file 09/21 Comments No Sex and Gender Information Value Date Recorded Sex Assigned at Not on file Legal Sex Female 8:07 PM FAST FOOD SALES ASSISTANT Gender Identity Not on file Sexual Orientation Not on file Obstetrics History Last Filed Vital Signs Vital Sign Reading Time Taken Comments Blood Pressure 104/70 12/31/2023 1:09 PM CDT Pulse 88 12/31/2023 1:09 PM CDT Temperature 36.8 C (98.3 F) 12/31/2023 1:09 PM CDT Respiratory Rate 16 03/05/2023 5:30 PM CDT Oxygen Saturation 99% 12/31/2023 1:09 PM CDT Inhaled Oxygen Concentration - - Weight 68.3 kg (150 lb 8 oz) 12/31/2023 1:09 PM CDT Height 165.1 cm (5' 5 ) 12/31/2023 1:09 PM CDT Body Mass Index 25.04 12/31/2023 1:09 PM CDT Plan of Treatment Health Maintenance Due Date Last Done Comments Cervical Cancer Screening 1981 Depression Screening 1981 Hepatitis C Screening 1981 Varicella Vaccines (1 of 2 - 13+ 2-dose series) 1994 Hepatitis B Screening 1999 Regular Well Visit/Exam 18-64 1999 Influenza Vaccine (#1) 2024 05/19/2019, 2016 Breast Cancer Screening-Mammogram 07/03/2024 07/03/2023, 08/24/2022, 05/03/2022, Additional history exists DTaP/Tdap/Td Vaccine (2 - Td or Tdap) 04/21/2029 04/21/2019 HPV Vaccines Aged Out No longer eligi ble based on patient's age to complete this topic Pneumococcal vaccine <65 Aged Out No longer eligible based on patient's age to complete this topic Procedures Procedure Name Priority Date/Time Associated Diagnosis Comments DIAGNOSTIC MAMMOGRAM BILATERAL W SARBJIT Schedule Routine, Read Routine (OP Routine) 07/03/2023 1:13 PM FAST FOOD SALES ASSISTANT Mass of breast, unspecified laterality from Last 3 Months or Most Recently Relevant to Health Maintenance Results * Diagnostic Mammogram Bilateral W Sarbjit (07/03/2023 1:13 PM FAST FOOD SALES ASSISTANT) Anatomical Region Laterality Modality Breast Bilateral Mammography 07/03/2023 1:56 PM FAST FOOD SALES ASSISTANT Impressions 07/03/2023 1:59 PM FAST FOOD SALES ASSISTANT Findings consistent with multiple foci of fat necrosis in both breasts corresponding to areas of palpable clinical concern. There is focal skin thickening and an underlying hyperechoic, oval, and circumscribed mass in the left lower inner breast underlying in area of erythema, which may represent inflammation in the setting of prior fat injections versus infection. The method of initial detection of finding was patient-reported clinical symptom (Pat). OVERALL FINAL ASSESSMENT: BI-RADS Category 3: Probably Benign. RECOMMENDATION: 1. Recommend antibiotics for treatment of possible left breast infection. If symptoms do not resolve with antibiotics, recommend repeat evaluation with primary care physician and/or the breast imaging department for further evaluation. 2. Recommend follow-up diagnostic breast imaging in 6 months with diagnostic bilateral mammogram and left breast ultrasound. Dr. Barriga discussed the above findings and recommendations with the patient, who expressed her understanding of the management plan. Dictated by: Familia Jaimes MD The radiology attending physician has personally reviewed this study, and had reviewed and/or edited this written report and agrees with it. Electronically signed by: Lor Barriga M.D. Narrative 07/03/2023 1:59 PM FAST FOOD SALES ASSISTANT EXAMINATION: BILATERAL DIGITAL DIAGNOSTIC MAMMOGRAM INCLUDING CAD AND BILATERAL DIGITAL BREAST TOMOSYNTHESIS; BILATERAL BREAST SONOGRAM HISTORY: 43-year-old woman with bilateral breast pain in the outer breast for the past 2 months with new redness and warmth to the left medial breast with associated palpable abnormality. History of fat injections into both breasts in November 2022. COMPARISON: Diagnostic mammogram 08/24/2022, screening mammogram 05/03/2022 TECHNIQUE: Full field digital mammographic views of BOTH breasts were performed, including computer aided detection (CAD) and BILATERAL digital breast tomosynthesis (DBT). Directed ultrasound evaluation of BOTH breasts was performed. BREAST PARENCHYMAL COMPOSITION: There are scattered areas of fibroglandular density. MAMMOGRAM FINDINGS: There are multiple round, circumscribed, low-density masses seen throughout both breasts, new compared to prior examination, compatible with fat necrosis. There is new skin thickening in the left inner breast corresponding to area of erythema on physical examination. No suspicious microcalcifications or architectural distortion in either breast. SONOGRAM FINDINGS: Targeted ultrasound of the clinical area of palpable concern with overlying erythema in the left breast at the 8 o'clock position 6 cm from the nipple shows skin thickening with underlying predominantly hyperechoic, oval, and circumscribed 3.5 cm mass, favored to represent fat necrosis. Targeted ultrasound of the additional clinical areas of palpable concern in both breasts show areas of benign breast tissue and a few scattered cysts. Procedure Note Lor Barriga MD - 07/03/2023 EXAMINATION: BILATERAL DIGITAL DIAGNOSTIC MAMMOGRAM INCLUDING CAD AND BILATERAL DIGITAL BREAST TOMOSYNTHESIS; BILATERAL BREAST SONOGRAM HISTORY: 43-year-old woman with bilateral breast pain in the outer breast for the past 2 months with new redness and warmth to the left medial breast with associated palpable abnormality. History of fat injections into both breasts in November 2022. COMPARISON: Diagnostic mammogram 08/24/2022, screening mammogram 05/03/2022 TECHNIQUE: Full field digital mammographic views of BOTH breasts were performed, including computer aided detection (CAD) and BILATERAL digital breast tomosynthesis (DBT). Directed ultrasound evaluation of BOTH breasts was performed. BREAST PARENCHYMAL COMPOSITION: There are scattered areas of fibroglandular density. MAMMOGRAM FINDINGS: There are multiple round, circumscribed, low-density masses seen throughout both breasts, new compared to prior examination, compatible with fat necrosis. There is new skin thickening in the left inner breast corresponding to area of erythema on physical examination. No suspicious microcalcifications or architectural distortion in either breast. SONOGRAM FINDINGS: Targeted ultrasound of the clinical area of palpable concern with overlying erythema in the left breast at the 8 o'clock position 6 cm from the nipple shows skin thickening with underlying predominantly hyperechoic, oval, and circumscribed 3.5 cm mass, favored to represent fat necrosis. Targeted ultrasound of the additional clinical areas of palpable concern in both breasts show areas of benign breast tissue and a few scattered cysts. IMPRESSION: Findings consistent with multiple foci of fat necrosis in both breasts corresponding to areas of palpable clinical concern. There is focal skin thickening and an underlying hyperechoic, oval, and circumscribed mass in the left lower inner breast underlying in area of erythema, which may represent inflammation in the setting of prior fat injections versus infection. The method of initial detection of finding was patient-reported clinical symptom (Pat). OVERALL FINAL ASSESSMENT: BI-RADS Category 3: Probably Benign. RECOMMENDATION: 1. Recommend antibiotics for treatment of possible left breast infection. If symptoms do not resolve with antibiotics, recommend repeat evaluation with primary care physician and/or the breast imaging department for further evaluation. 2. Recommend follow-up diagnostic breast imaging in 6 months with diagnostic bilateral mammogram and left breast ultrasound. Dr. Barriga discussed the above findings and recommendations with the patient, who expressed her understanding of the management plan. Dictated by: Familia Jaimes MD The radiology attending physician has personally reviewed this study, and had reviewed and/or edited this written report and agrees with it. Electronically signed by: Lor Barriga M.D. Mara Overton NP IMG MAMMO PROCEDURES Fi nal Result from Last 3 Months or Most Recently Relevant to Health Maintenance Insurance [id number] Care Teams Ob/Gyn Doctor Relationship Specialty Start Date End Date Jagdeep Burdick DO PCP - General Internal Medicine 04/06/17 Karine Valdivia MD [address] [facility] [address] [address] Allergy and Immunology 10/30/23
--- OUTSIDE RECORDS SUMMARY | 2024-12-08 15:36 | XMS_ITS ---
Author Organization [facility] [place] ([address]) Address [address] [place] [address] Care Team Providers Care Life Science Teacher Name Role Phone Jagdeep Burdick Primary Care Provider Unavailab Karine Oh Unavailable [phone] REASON FOR VISIT OOP cost Encounters Encounter Location Date Provider Diagnosis [facility] [address] [place] [address] 11/12/2023 Karine Valdivia Plan Of Treatment No Information Progress Notes * Topher SINGEROB: [birth year] (43 yo F)Acc No.[id number]:11/12/2023 Patient: Priya DAVID :1980 A ge:43 Y S ex:Female Address:[address] [place] [address], [place] [address] * true * Date: Generated for Printi ng/Faxing/eTransmitting on: 0 12/08/2024 03:35 PM CDT
--- OUTSIDE RECORDS SUMMARY | 2024-12-08 15:36 | XMS_ITS | Clinical Summary ---
Author Organization [facility] Address [address] [place] [address] Care Team Providers Care Branch Lending Officer Name Role Phone Unavailable Primary Care Provider Unavailabl e Source Comments [facility],non-owned Affiliates and Associated Physician Practices is amultiple site organization consisting of ambulatory clinics and hospital sitesin [place], [place], [place] and [place]. This disclosure is being madepursuant to the Care Everywhere program and may not contain all information available regarding this patient. 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 Gender Identity Not on file Sexual Orientation Not on file Plan of Treatment Health Maintenance Due Date Last Done Comments LIPID TESTING 1980 MAMMOGRAM 1980 PAP SMEAR 1981 HIV SCREENING 1996 HEPATITIS C SCREENING 04/10/1999 DTAP/TDAP/TD VACCINES (1 - Tdap) 2000 HEPATITIS B VACCINE (1 of 3 - 19+ 3-dose series) 2000 COVID-19 VACCINE (2023-2 5 season) 2024 DEPRESSION SCREENING 08/13/2024 INFLUENZA VACCINE (Season Ended) 2025 ZOSTER VACCINE (1 of 2) 2031 HIB VACCINE Aged Out No longer eligi ble based on patient's age to complete this topic HPV VACCINE Aged Out No longer eligi ble based on patient's age to complete this topic MENINGOCOCCAL (Group B) VACC INE SHARED DECISION-MAKING Aged Out No longer eligibl e based on patient's age to complete this topic MENINGOCOCCAL GROUPS A/C/Y/W VACCINE Aged Out No longer eligible b ased on patient's age to complete this topic PNEUMOCOCCAL VACCINE Aged Out No long er eligible based on patient's age to complete this topic Insurance [employer] SELF PAY NO INSURANCE Member Subscriber Plan / Payer (Ef fective for All Dates) Name:Jessica Singer Member ID:Not on file Relation to Subscriber:Not on file Name:JESSICA SINGER Subscriber ID:Not on file (Home) Address: [address] [place] [phone] Payer ID:Not on file Group ID:Not on file Type:Self Pay Address: [place], [place] [facility] Address: [facility] [id number] [place] [address] * Guarantor: JESSICA SINEGR Account Type Relation to Patient Date of Phone Billing Address Personal/Family [address] [place] [phone] [facility] Address: [facility] [address] [place] [address] * Guarantor: JESSICA SINGER Account Type Relation to Patient Date of Phone Billing Address Personal/Family [address] [place] [address] * Guarantor: JESSICA SINGER Account Type Relation to Patient Date of Phone Billing Address Personal/Family [address] [place] [address]
--- OUTSIDE RECORDS SUMMARY | 2024-12-08 15:36 | XMS_ITS | Referral Summary ---
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 Gender Identity Not on file Sexual Orientation Not on file Last Filed Vital Signs Vital Sign Reading [...] 12/31/2023 1:09 PM CDT Plan of Treatment Not on file Procedures Procedure Name Priority Date/Time Associated Diagnosis Comments DIAGNOSTIC MAMMOGRAM BILATERAL W SARBJIT Schedule Routine, Read Routine (OP Routine) 07/03/2023 1:13 PM PLANT SUPERVISOR Mass of breast, unspecified laterality from Last 3 Months or Most Recently Relevant to Health Maintenance Results * Diagnostic Mammogram Bilateral W Sarbjit (07/03/2023 1:13 PM PLANT SUPERVISOR) Anatomical Region Laterality Modality Breast Bilateral Mammography 07/03/2023 1:56 PM PLANT SUPERVISOR Impressions 07/03/2023 1:59 PM PLANT SUPERVISOR Findings consistent with multiple foci of fat [...] Lor Barriga M.D. Narrative 07/03/2023 1:59 PM PLANT SUPERVISOR EXAMINATION: BILATERAL DIGITAL DIAGNOSTIC MAMMOGRAM INCLUDING CAD [...] Most Recently Relevant to Health Maintenance Insurance CIG[employer] CIGNA Care Teams Clothes Marker Relationship Specialty Start Date End Date Jagdeep Burdick DO PCP - General Internal Medicine 04/06/17 Karine Valdivia MD [address] [facility] [address] [facility] [address] [place] [address] Allergy and Immunology 10/30/23
--- NOTE | 2024-12-08 16:48 | WPDPFTINT ---
PFT Procedure Performed PFT Procedure Performed Spirometry with Pre/Post Bronchodilator Plethysmography (Lung Vol) Diffusing Cap (DLCO) Flow Vol Loop PFT Interpretation This is a pulmonary function test with pre and post-bronchodilator spirometry, plethysmography and diffusing capacity. The test was performed and results interpreted in accordance with the 2019 and 2005 ATS/ERS Task Force guidelines respectively using the Global Lung Function Initiative-2012 reference equations. Patient demonstrated good effort and cooperation. Reproducibility criteria were met. The quality of the pre bronchodilator spirometry maneuver was Grade A and post bronchodilator spirometry maneuver was Grade A. Findings: Spirometry: The contour the inspiratory and expiratory flow tracing are normal. The pre bronchodilator FVC is 3.09 L, 82% predicted. The pre bronchodilator FEV1 is 2.65 L, 87% predicted. The pre bronchodilator FEV1: FVC ratio is 86%. The post bronchodilator FVC is 3.08 L, representing no change. The post bronchodilator FEV1 is 2.69 L, representing a 1% increase. The post bronchodilator FEV1: FVC ratio is 87%. Plethysmography: The total lung capacity is 4.34 L, 84% predicted. The functional residual capacity is 1.55 L, 54% predicted. The residual volume is 1.21 L, 71% predicted. Diffusing capacity: The diffusing capacity unadjusted for hemoglobin and carboxyhemoglobin is 19.0, 80% predicted. The diffusing capacity adjusted for alveolar volume is 4.60, 99% predicted. In comparison to previous pulmonary function testing on 05/04/2023 the post bronchodilator FVC is unchanged from 3.05 L to 3.08 L. The post bronchodilator FEV1 is unchanged from 2.61 L to 2.69 L. The total lung capacity is decreased from 5.25 L to 4.34 L. The functional residual capacity is decreased from 2.50 L to 1.55 L. The residual volume is decreased from 1.69 L to 1.21 L. The diffusing capacity unadjusted for hemoglobin and carboxyhemoglobin is unchanged from 17.7 to 19.0. The diffusing capacity adjusted for alveolar volume is unchanged from 4.61 to 4.60. Impression: The spirometry is normal without evidence of an obstructive abnormality. There is no significant improvement after inhaling a single dose of albuterol. The total lung capacity and residual volume are normal with a decreased functional residual capacity. This is an abnormal but nonspecific lung volume pattern. The diffusing capacity is normal. In comparison to previous pulmonary function testing on 05/04/2023 there has been a greater than anticipated time dependent decrease in the total lung capacity, functional residual capacity and residual volume with no significant change in the FVC, FEV1 or diffusing capacity. Clinical correlation is recommended.
== END 2024-12-08 13:43 | disposition home or self-care (01) ==
LOC: ANHPFT 13:43
PROVIDERS: PCP Clinical Nurse Specialist; Visit Provider Nurse Practitioner Family
DX: J45.909 Unspecified asthma, uncomplicated (principal); R05.9 Cough, unspecified
CPT/HCPCS: 94060; 94726; 94729

== ENCOUNTER 2024-12-26 13:42 | Emergency (ER) | payer OTHER, SELFPAY ==
--- NOTE | ~2024-12-26 | XR_ITS ---
EXAMINATION: XR chest 2V DATE: 12/26/2024 14:32 INDICATION: Chest pain TECHNIQUE: PA and lateral views of the chest were obtained. COMPARISON: Chest radiograph dated 09/26/2024 FINDINGS: The lungs remain clear with no focal airspace opacities, pulmonary edema, pleural effusion or pneumot horax. The cardiomediastinal silhouette is normal. Mild thoracolumbar dextrocurvature. IMPRESSION: 1. No acute cardiopulmonary disease. Reviewed, dictated and finalized at location A.
--- NOTE | 2024-12-26 13:44 | ECG_ITS ---
Test Date: 2024-12-26 14:07:41 Measurements Intervals [place] Rate: 75 P: 50 IN: 141 QRS: 20 QRSD: 81 T: 20 QT: 378 QTc: 422 Interpretive Statements SINUS RHYTHM NONSPECIFIC T-WAVE ABNORMALITY ABNORMAL ECG No previous ECG available for comparison Electronically Signed On 12-27-2024 07:59:10 CDT by Rohit Hernandez M.D.
--- OUTSIDE RECORDS SUMMARY | 2024-12-26 13:45 | XMS_ITS ---
Author Organization [facility] [employer] [place] ([address]) Address [address] [place] [address] Care Team Providers Care Outreach Analyst Name Role Phone Fannyeder Jagdeep Primary Care Provider Unavailab le Karine Valdivia Unavailable [phone] [facility], Provider Unavailable Unavailab adele Allergies Allergen (clinical drug ingredient) Drug/Non Drug Allergy documented on EMR Reaction Allergy Type Onset Date Status sulfamethoxazole / trimethoprim Bactrim dizziness, shortness of breath, tachycardia taken for skin infection Drug Allergy Active REASON FOR VISIT [facility] Encounter Medications Medication SIG (Take, [...] *Please review and pick correct strength-formulation from [facility] options. If intended option is not shown, discontinue and re-order from Quick Search* Active Encounters Encounter Location Date Provider Diagnosis [facility] [place] [address] 01/26/2024 Provider ZZ-Migration Dermatitis, unspecified L30.9 Assessments [...] * Topher SINGEROB: [birth year] (44 yo F)Acc No.[id number]:01/26/2024 Patient: Priya DAVID Provider: Lynne Santoro :1980 A ge:43 Y S ex:Female Date:01/26/2024 Address:[address] [place] [address], [facility] Pcp:Jagdeep Burdick Subjective: * Chief Complaints: [...] Electronic signature of Prov ider [facility]Migration on 12/26/2024 at 01:45 PM CDT Sign off status: Pending * Provider: Lynne Santoro Date: 01/26/2024 Generated for Jalen manzanares/Cheryle/Diego on: 0 12/26/2024 01:45 PM CDT
--- OUTSIDE RECORDS SUMMARY | 2024-12-26 13:46 | XMS_ITS ---
Author Organization [facility] [place] ([address]) Address [address] [place] [address] Care Team Providers Care Pad Extractor Tender Name Role Phone Jagdeep Burdick Primary Care Provider Unavailab Karine Oh Unavailable [phone] REASON FOR VISIT OOP cost Encounters Encounter Location Date Provider Diagnosis [facility] [address] [place] [address] 11/12/2023 Karine Valdivia Plan Of Treatment No Information Progress Notes * Topher SINGEROB: [birth year] (43 yo F)Acc No.[id number]:11/12/2023 Patient: Priya DAVID :1980 A ge:43 Y S ex:Female Address:[address] [place] [address], [place] [address] * true * Date: Generated for Printi ng/Faxing/eTransmitting on: 0 12/26/2024 01:45 PM CDT
--- OUTSIDE RECORDS SUMMARY | 2024-12-26 13:46 | XMS_ITS | Continuity of Care Document ---
Author Organization [facility] Address [address] [place] [address] [place] [address] Phone Care Team Providers Care Wireless Sales Representative Name Role Phone Dasilva OD, Genaro Unavailable Unavailable Procedures Procedure Date Office/outpatient Visit, Est Office/outpatient Visit, Est Office/outpatient Visit, Est Office/outpatient Visit, New Advance Directives Directive Yes / No Effective Date File Name No Information Encounters Encounter Description Practice Location Reason(s) For Visit Diagnoses Date Provider Providers Copied on Encounter Office/outpat ient Visit, [facility], [address] [place] [address] [address], [place], [place], [id number], tel:[phone] [facility] No Information 1-201 0 Dasilva OD Genaro. [address] [facility] , [address], [place], [place], [facility], . tel:[phone] Office/outpat ient Visit, [facility], [address] [place] [address] [address], [place], [place], [id number], [place] tel:[phone] [facility] No Information 6-201 0 Dasilva OD Genaro. [address] [facility] , [address], [place], [place], [facility], . tel:[phone] Office/outpat ient Visit, [facility], [address] [place] [address] [address], [place], [place], [id number], tel:[phone] [facility] No Information 2-201 0 Doisy Edward. [address] [facility] , [address], [place], [address], [place]. tel:[phone] Office/outpat ient Visit, [facility], [address], [place], [place], [id number], [place] tel:[phone] [facility] No Information 0-201 0 Dasilva OD Genaro. [address] [facility] , [address], [place], [address], [place]. tel:[phone] Family History Family Member Type Diagnosis Age At Onset No Information Payers Payer name Insurance type Covered democrat ID Authorbigga luisarpit(s) [facility] Custom Care [id number] Social History Type Description Quantity Date Captured [...]
--- OUTSIDE RECORDS SUMMARY | 2024-12-26 13:46 | XMS_ITS | Patient Health Record ---
Author Organization [facility] [employer] [facility] [place] ([address]) Address [address] [place] [address] Care Team Providers Care Plunger Machine Operator Name Role Phone OdiliacorinaJagdeep goldsmith Primary Care Provider Unavailab le Karine Valdivia Unavailable [phone] [facility], Provider Unavailable Unavailab le Allergies Allergen [...] *Please review and pick correct strength-formulation from [employer] options. If intended option is not shown, [...] Status Risk Notes Problem Chronic allergic conjunctivitis (00755271) Other chronic allergic conjunctivitis (H10.45) Active confirmed Problem Allergic rhinitis caused by pollen (disorder) (50254285) Allergic rhinitis due to pollen (J30.1) Active confirmed Problem Allergic rhinitis (55871827) Other allergic rhinitis (J30.89) Active confirmed Problem Uncomplicated moderate persistent asthma (591702286) Moderate persistent asthma, uncomplicated (J45.40) Active confirmed Problem Allergic rhinitis caused by animal hair and dander (578827920021622) Allergic rhinitis due to animal (cat) (dog) hair and dander (J30.81) Active confirmed Problem Allergy status t o other antibiotic agents (Z88.1) Active confirmed Encounters Encounter Location Date Provider Diagnosis [address] [address] 01/26/2024 Provider JENNY-Yvan Dermatitis, unspecified L30.9 Assessments [...] Start Date Coverage End Date Freddie Rodrige[id number] [place] [address] [id number] Priya Chow Self - patient is the insured Medical (General) History Medical History History ICD Code Asthma Allergic rhinitis due to pollen J30.1 Dermatitis, unspecified L30.9 Surgical History Surgery Date(Month/Year) hip surgery 2016
--- OUTSIDE RECORDS SUMMARY | 2024-12-26 13:46 | XMS_ITS | Clinical Summary ---
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 Gender Identity Not on file Sexual Orientation [...] Screening 1999 Regular Well Visit/Exam 18-64 1999 Breast Cancer Screening-Mammogram 07/03/2024 07/03/2023, 08/24/2022, 05/03/2022, Additional history exists Influenza Vaccine (Season Ended) 2025 05/19/2019, 05/16/2017 DTaP/Tdap/Td Vaccine (2 - Td or Tdap) 04/21/2029 04/21/2019 HPV Vaccines Aged Out No longer eligi ble based on patient's age to complete this topic Pneumococcal vaccine <65 Aged Out No longer eligible based on patient's age to complete this topic Procedures Procedure Name Priority Date/Time Associated Diagnosis Comments DIAGNOSTIC MAMMOGRAM BILATERAL W SARBJIT Schedule Routine, Read Routine (OP Routine) 07/03/2023 1:13 PM HOSTLER HELPER Mass of breast, unspecified laterality from Last 3 Months or Most Recently Relevant to Health Maintenance Results * Diagnostic Mammogram Bilateral W Sarbjit (07/03/2023 1:13 PM HOSTLER HELPER) Anatomical Region Laterality Modality Breast Bilateral Mammography 07/03/2023 1:56 PM HOSTLER HELPER Impressions 07/03/2023 1:59 PM HOSTLER HELPER Findings consistent with multiple foci of fat [...] Lor Barriga M.D. Narrative 07/03/2023 1:59 PM HOSTLER HELPER EXAMINATION: BILATERAL DIGITAL DIAGNOSTIC MAMMOGRAM INCLUDING CAD [...] Most Recently Relevant to Health Maintenance Insurance e(ye)[employer] CIGNA Care Teams Child Welfare Director Relationship Specialty Start Date End Date Jagdeep Burdick DO PCP - General Internal Medicine 04/06/17 Karine Valdivia MD [address] [facility] [address] [address] Allergy and Immunology 10/30/23
--- OUTSIDE RECORDS SUMMARY | 2024-12-26 13:46 | XMS_ITS ---
Author Organization [facility] [place] ([address]) Address [address] [place] [address] Care Team Providers Care Fixed Wing Aircraft Crew Chief Name Role Phone Jagdeep Burdick Primary Care Provider Unavailab Karine Oh Unavailable [phone] REASON FOR VISIT Asthma follow-up Encounters Encounter Location Date Provider Diagnosis [facility] [address] [place] [address] 11/14/2023 Karine Valdivia Plan Of Treatment No Information Progress Notes * Topher SINGEROB: [birth year] (44 yo F)Acc No.[id number]:11/14/2023 Asthma F/U Patient: Priya DAVID Provider: Johnna Valdivia MD :1980 A ge:43 Y S ex:Female Date:11/14/2023 Address:[address] [place], [place] [address] Pcp:Jagdeep Burdick Subjective: * Chief Complaints: * 1 . Asthma follow-up. * Medical History: Objective: * Vitals: Assessment: Plan: * Treatment: * Billing Information: * Visit Code: * Procedure Codes: * Electronic signature of Britney Valdivia MD on 12/26/2024 at 01:45 PM CDT Sign off status: Pending * Provider: Johnna Valdivia MD Date: 0 11/14/2023 Generated for Jalen manzanares/Cheryle/Milkasmitting on: 0 12/26/2024 01:45 PM CDT
--- OUTSIDE RECORDS SUMMARY | 2024-12-26 13:46 | XMS_ITS | Clinical Summary ---
Author Organization [facility] Address [address] [place] [address] Care Team Providers Care Firefighter Type One Name Role Phone Unavailable Primary Care Provider [...]
--- OUTSIDE RECORDS SUMMARY | 2024-12-26 13:46 | XMS_ITS | Clinical Summary ---
Author Organization [facility] Address [address] [place] [address] Care Team Providers Care School Cleaner Name Role Phone Unavailable Primary Care Provider Unavailabl e Source Comments [facility],non-owned Affiliates and Associated Physician Practices is amultiple site organization consisting of ambulatory clinics and hospital sitesin [place], [place], [place] and [place]. This disclosure is being madepursuant to the Care Everywhere program and may not contain all information available regarding this patient. Last updated 18.[facility] [employer] Social History Tobacco Use Types Packs/Day Years Used Date Smoking Tobacco: Never Assessed Comments Unknown Sex and Gender Information Value Date Recorded Sex Assigned at Not on file Legal Sex Female 12:01 PM MULTI DISCIPLINED LANGUAGE ANALYST Gender Identity Not on file Sexual Orientation [...] SINGER Subscriber ID:Not on file (Home) Address: [address] [place] [phone] Payer ID:Not on file Group ID:Not on file Type:Self Pay Address: [place], [place] CIGNA * Guarantor: JESSICA SINGER Account Type Relation to Patient Date of Phone Billing Address Personal/Family [address] [place] [phone] [employer] * Guarantor: JESSICA SINGER Account Type Relation to Patient Date of Phone Billing Address Personal/Family [address] [place] [address] * Guarantor: JESSICA ISNGER Account Type Relation to Patient Date of Phone Billing Address Personal/Family [address] [place] [address]
--- OUTSIDE RECORDS SUMMARY | 2024-12-26 13:46 | XMS_ITS | Data Portability ---
Author Organization [facility] [place] Address [address] [place] [address] Care Team Providers Care Newborn Photographer Name Role Phone TORI BURDICK Primary Care Provider Assessment Encounter Date Assessment Date Assessment LastModified by Organization Details LastModified Time 08/14/2023 08/14/2023 Annual gynecological exam performed. Patient will come back in a year unless there are new symptoms. [email or web address] Not available 08/14/2023 10:44:16 09/15/2024 09/15/2024 Annual gynecological exam performed. Patient will come back in a year unless there are new symptoms. [email or web address] Not available 09/15/2024 15:09:47 Plan of Treatment Reminders Order Date Submit Date Provider Last Modified By Organization Details Last Modified Time Details Appointments None recorded. Lab None recorded. Referral breast surgery referral 2023 024 [email or web address] Lori Benavides MD, [address], [address], 4 14:24:42 Procedures None recorded. Surgeries None recorded. Imaging MAMMO, diagnostic, digital, bilateral 2022 023 [email or web address] 1 [facility], [address], [place], [address], 4 09:29:46 US, breast, bilateral, complete 2022 023 [email or web address] 1 [facility], [address], [place], [address], 4 09:29:35 Medication Orders EnilloRing 0.12 mg-0.015 mg/24 hr vaginal ring 2024 025 TANVIR [facility], [address] [place], [address], 5 15:59:18 NuvaRing 0.12 mg-0.015 mg/24 hr vaginal 2023 024 TANVIR [id number], [address], [place], [place], [id number], 4 13:10:02 Bactrim DS 800 mg-160 mg tablet 2022 023 [email or web address] 1 [facility][id number], [address] [facility], [place], [place], [id number], 4 09:30:51 Patient TargetsNo targets recorded. Patient InstructionsNo instructions recorded. Reason for Referral Breast Surgery Referral for Breast lump Referring Physician: Mara Overton, UNDERGROUND DISTRIBUTION ENGINEER, Encounter Date: 08/14/2023 Results Created Date Observation [...] for Intra epith elial Lesio n or Xochitl syed (NIL) . Elect leon cheney carmen d [...] is recom fanny d, as clini kaylee ubrris nted. Not Available [facility]) [address], [place], [address], 08/15/2023 19:43:27 07/03/2007/03/2023 MAMMO , diagn ostic , digit al, bilat eral No observ ation record ed. [email or web address] [facility] [address], [place], [address], 08/16/2023 17:07:54 07/03/2007/03/2023 MAMMO , scree rosa, bilat eral No observ ation record ed. [email or web address] [facility] [address] [place], [address], 07/09/2023 18:03:09 Result Notes None recorded. Problems Name Problem SNOMED Code Status Onset Date Resolution Date Notes Provider Name and Address Organization Details Recorded Time Gestatio n period, 38 weeks [id number] Completed 201806/10/2021 38 weeks gestatio n of pregnanc y;Practi ce ID: 0001 Farnaz marx, [facility] 11:30:23 Normal pregnanc y in multigra savita [id number] 4106 Completed 201806/10/2021 Encounte r for suprvsn of normal pregnanc y, third trimeste r;Practi ce ID: 0001 Farnaz marx, [facility] 11:30:48 Lochia finding Completed 201806/10/2021 Encounte r for routine postpart um follow-u p;Practi ce ID: 0001 Farnaz marx, [facility] 11:30:43 Disorder of lactatio n [id number] Completed 201806/10/2021 Other disorder s of lactatio n;Practi ce ID: 0001 Farnaz marx, [facility] 11:30:44 Procedur e related to breastfe eding Completed 201806/10/2021 Encounte r for care and examinat ion of lactatin g mother;P ractice ID: 0001 Farnaz marx, [facility] 11:30:41 Prescrip tion of contrace ption Completed 201506/10/2021 Encounte r for initial prescrip tion of contrace ptives, unspecif ied;Brett rded Elsewher e: No Locat ion: [facility] S ource: EHR Blind [place]er chilango: N Practi ce ID: 0001 Glynn lable Time: 08:30:00 [facility] 11:30:54 Speciali zed medical examinat ion Completed 201006/10/2021 Gynecolo gical Examinat ion;Brett rded Elsewher e: No Locat ion: [facility] S ource: EHR Blind [place] chilango: N Practi ce ID: 0001 Glynn lable Time: 09:30:00 AM Farnaz marx [facility] 11:30:51 Generali zed anxiety disorder [id number] Completed 201106/10/2021 Generali zed anxiety disorder ;Recorde d Elsewher e: No Locat ion: [facility] S ource: EHR [place] chilango: N Practi ce ID: 0001 Glynn lable Time: 05:30:00 PM [facility] 11:30:29 Pregnanc y detectio n examinat ion Completed 201806/10/2021 Encounte r for pregnanc y test, result positive ;Recorde d Elsewher e: No Locat ion: [facility] S ource: EHR [place] chialngo: N Practi ce ID: 0001 Glynn lable Time: 01:30:00 PM Farnaz marx, [facility] 11:30:57 Leukocyt osis [id number] Completed 201406/10/2021 LEUKOCYT OSIS NOS;Brett rded Elsewher e: No Locat ion: Greg leyva [facility] S ource: EHR [place] chilango: N Practi ce ID: 0001 Glynn lable Time: 01:30:00 PM Farnaz Easley null, [facility] 11:30:18 Routine antenata l care Completed 201006/10/2021 Supervis ion of other normal pregnanc y;Practi ce ID: 0001 Farnaz Easley null, [facility] 11:30:21 Poor growth affectin g manageme nt [id number] Completed 201006/10/2021 GROWTH POOR SGA;Prac tristen ID: 0001 Farnaz Easley null, [facility] 11:30:47 Antenata l screenin g Completed 201006/10/2021 Other antenata l screenin g based on amniocen tesis;Pr actice ID: 0001 Farnaz Easley null, [facility] 11:30:35 Delivery normal [id number] Completed 201006/10/2021 Normal delivery ;Practic e ID: 0001 Farnaz Easley null, [facility] 11:30:50 Single live from singleto n pregnanc y [id number] Completed 201006/10/2021 Mother with single liveborn ;Practic e ID: 0001 Farnaz Easley araseli, [facility] 11:30:24 Postpart um care Completed 201006/10/2021 Routine postpart um follow-u p;Practi ce ID: 0001 Farnaz marx [facility] 11:30:20 Screenin g for malignan t neoplasm of cervix Completed 201006/10/2021 Pap Smear;Pr actice ID: 0001 Farnaz marx [facility] 11:30:26 Migraine [id number] Completed 201306/10/2021 Migraine , unspecif ied without mention of intracta ble migraine ;Practic e ID: 0001 Farnaz Easley [facility] 11:30:46 Female genital organ symptoms 101384359 Completed 201406/10/2021 Pelvic Pain;Pra ctice ID: 0001 [facility] 11:30:27 Pregnanc y test negative [id number] Completed 201406/10/2021 Negative Pregnanc y Test;Pra ctice ID: 0001 [facility] 11:30:[address] Concept Completed 201406/10/2021 Encntr for malt roaster exam (general ) (routine ) w/o abn findings ;Practic e ID: 0001 Farnaz marx [facility] 11:30:39 Urinary tract infectio us disease 52313081 Completed 201606/10/2021 Urinary tract infectio n, site not specifie d;Practi ce ID: 0001 Farnaz marx [facility] 11:30:53 Evaluati on finding Completed 201606/10/2021 Hematuri a, unspecif ied;Prac tristen ID: 0001 [facility] 11:30:38 Antenata l screenin g for malforma tion Completed 201806/10/2021 Encounte r for antenata l screenin g for malforma tions;Pr actice ID: 0001 Farnaz marx, [facility] 11:30:56 Lacerati on of female perineum Completed 201806/10/2021 First degree perineal lacerati on during delivery ;Practic e ID: 0001 Farnaz marx, [facility] 11:30:33 Term pregnanc y delivere d [id number] Completed 201806/10/2021 Encounte r for full-ter m uncompli cated delivery ;Practic e ID: 0001 Farnaz marx, [facility] 11:30:30 Gestatio n period, 35 weeks 52122138 Completed 201806/10/2021 35 weeks gestatio n of pregnanc y;Record ed Elsewher e: No Locat ion: [facility] S ource: EHR [place] ch[place]: N Practi ce ID: 0001 Glynn lable Time: 08:15:00 AM Farnaz marx [facility] 11:30:58 Uterine size for dates discrepa ncy Completed 201806/10/2021 Uterine size-paras e discrepa ncy, third trimeste r;Record ed Elsewher e: No Locat ion: [facility] S ource: EHR [place] chilango: N Practi ce ID: 0001 Glynn lable Time: 08:15:00 AM Farnaz marx [facility] 11:30:32 Problem Notes None recorded. Procedures Surgical History Date Name Laterality Status Provider Name and Address Organization Details Recorded Time 024 Cholecystectomy completed Kellen Melo [facility] 06/23/2024 12:45:22 024 procedure on gallbladder completed TUTU Angelia [facility] 09/15/2024 15:15:40 024 Date of Last Pap Smear completed Dorota Ruelas [facility] 08/14/2023 10:45:04 023 lipofilling of breast completed JEFERSON Pickens [address], [place], [address], [facility] 07/13/2023 12:38:17 017 procedure on hip completed Farnaz Doran [facility] 06/10/2021 11:41:46 001 extraction of wisdom tooth completed Dorota Ruelas [facility] 08/14/2023 10:47:04 Imaging Results Imaging Date Name Status LastModified by Organiz ation Details LastModified Time 07/03/2023 MAMMO, diagnostic, digital, bilateral completed [email or web address] [facility] [address] [place], [address], 08/16/2023 17:07:54 07/03/2023 MAMMO, screening, bilateral completed [email or web address] [facility] [address] [place], [address], 07/09/2023 18:03:09 Procedure Notes None recorded. Medical Equipment None Reported. Allergies Allergen ID Allergen Name Allergen Category Reaction Reaction Severity Criticality Documentation Date Start Date Code Code System Note Provider Name and Address Organization Details Recorded Time 73683 Bactrim medicatio n Not available Not available Not available 07/16/2023 18769 9 RxNorm JEFERSON Pickens [address], [place], [address], [facility] 11:07:58 03484 Substance with sulfonami de structure and antibacte rial mechanism of action (substanc e) medicatio n Not available Not available Not available 08/14/2023 72752 8003 SNOMED Dorota Ruelas [facility], [place] - [facility] 10:44:42 Medications Name Sig Start Date Stop [...] Prescrib ed Elsewher e: Yes Loca tion: [facility] M odify By: conchita aiken DateTime : [...] route every day 10/16 [facility] : 10/11/19 12 05:30:00 PM Not [...] route every day 09/05 completed Prescrib kaiden Teague e: No Locat ion: [facility] odify By: anna aiken DateTime : [...] Not Available Not Available No t Available BREAKFAST ATTENDANT-PNV-DH A 28 mg iron-1 mg-200 mg capsule take 1 capsule by oral route every day 06/10 completed Prescrib ed Elsewher e: No Locat ion: [facility] odify By: lakeisha he DateTime : 11/01/19 03:45:00 PM Not Available Not Available Not Available Gynazole- 1 2 % vaginal cream insert 1 applicat orful by vaginal route once 07/06 completed Prescrib ed Elsewher e: No Locat ion: [facility] odify By: prisca he DateTime : 04/26/20 [...] Updated DateTime 06/12/2023 165.1 cm 25 kg/m2 28698.86 g 112 mm[Hg] 73 mm[Hg] Halina Jain [facility] 3 10:55:47 Date Recorded Body height Body mass index (BMI) Body weight Systolic blood pressure Diastolic blood pressure Provider Name and Address Organization Details Last Updated DateTime 07/13/2023 165.1 cm 24.6 kg/m2 14490.23 g 108 mm[Hg] 76 mm[Hg] Aracelis Lowmargie [facility] 3 12:13:25 Date Recorded Body height Body mass index (BMI) Body weight Systolic blood pressure Diastolic blood pressure Provider Name and Address Organization Details Last Updated DateTime 08/14/2023 165.1 cm 24.8 kg/m2 04396.26 g 110 mm[Hg] 73 mm[Hg] Dorota Ruelas [facility] 4 10:44:29 Date Recorded Body height Body mass index (BMI) Body weight Systolic blood pressure Diastolic blood pressure Provider Name and Address Organization Details Last Updated DateTime 06/23/2024 165.1 cm 25.5 kg/m2 08796.63 g 107 mm[Hg] 73 mm[Hg] Kellen Kameron [facility] 4 12:42:47 Date Recorded Body height Body mass index (BMI) Body weight Systolic blood pressure Diastolic blood pressure Provider Name and Address Organization Details Last Updated DateTime 09/15/2024 165.1 cm 25.8 kg/m2 44039.82 g 131 mm[Hg] 74 mm[Hg] TUTU Galan [facility] 5 15:12:24 Social History Question Answer Notes LastModified by Organizat ion Details LastModified Time Tobacco Smoking Status Never Smoker Not Available [facility] 06/15/2020 03:28:11 Do You Have An Advance Directive? No [email or web address] Information n ot available 09/15/2024 Are You Blind Or Do You Have Difficulty Seeing? No Information n ot available 08/09/2022 What Is Your Level Of Caffeine Consumption? Occasional [email or web address] Information not available 08/14/2023 How Much Tobacco Do You Chew? None [email or web address] Information not available 09/15/2024 In The 14 Days Before Symptom Onset, Have You Had Close Contact With A Laboratory-confirm ed COVID-19 While That Case Was Ill? No [email or web address] Information n ot available 08/14/2023 In The 14 Days Before Symptom Onset, Have You Had Close Contact With A Person Who Is Under Investigation For COVID-19 While That Person Was Ill? No Information not available 08/14/2023 Have You Been To An Area Known To Be High Risk For COVID-19? No [email or web address] Information not available 08/14/2023 Are You Deaf Or Do You Have Serious Difficulty Hearing? No Information not available 08/09/2022 What Type Of Diet Are You Following? REGULAR Information n ot available 08/09/2022 What Is The Highest Grade Or Level Of School You Have Completed Or The Highest Degree You Have Received? [id number] [email or web address] Information not available 09/15/2024 Are There Any Guns Present In Your Home? No [email or web address] Information not available 09/15/2024 Do You Use Protection During Sex? No [email or web address] Information not available 09/15/2024 Do You Use Your Seat Belt Or Car Seat Routinely? Yes [email or web address] Information not available 08/14/2023 Do You Have Smoke And Carbon Monoxide Detectors In Your Home? Yes [email or web address] Information not available 08/14/2023 How Much Tobacco Do You Smoke? No [email or web address] Information not available 09/15/2024 Do You Use Sunscreen Routinely? Yes [email or web address] Information not available 08/14/2023 Has Tobacco Cessation Counseling Been Provided? No [email or web address] Information not available 08/14/2023 Have You Used IV Drugs? No [email or web address] Information not available 09/15/2024 Do You Have Difficulty Walking Or Climbing Stairs? No Information not available 08/09/2022 Sex: Unknown Functional Status Question Answer Note LastModified by Organizat ion Details LastModified Time Do you use any illicit or recreational drugs? No [email or web address] Information not available 08/14/2023 Do you or have you ever used any other forms of tobacco or nicotine? No [email or web address] Information not available 08/14/2023 What is your level of alcohol consumption? Occasional Information not available 08/09/2022 Are you able to walk? YESWOREST Information not available 08/09/2022 Are you able to care for yourself? Yes Information n ot available 08/09/2022 Do you have difficulty dressing or bathing? No Information not available 08/09/2022 What is your exercise level? Occasional [email or web address] Information not available 09/15/2024 Mental Status Question Answer Note LastModified by Organization D etails LastModified Time Do you feel stressed (tense, restless, nervous, or anxious, or unable to sleep at night)? [id number] Information not available 08/14/2023 Family History Relationship Description Onset Age of this Age Resolved Age Notes LastModified by Organization Details LastModified Time Maternal Grandfather History of transient ischemic attack Not available 2024 15:03:51 Maternal Grandfather Carcinoma in situ of lung [email or web address] Not available 10/2024 15:03:51 Paternal Grandmother Suspected ovarian cancer [email or web address] Not available 2024 15:03:51 Paternal Grandmother Carcinoma in situ of thyroid gland [email or web address] Not available 2024 15:03:51 Maternal Grandmother Dysrhythmia management [email or web address] Not available 09/15 15:03:51 Maternal Grandmother Carcinoma in situ of breast [email or web address] Not available 2024 15:03:51 Unspecified Relation Heart disease [email or web address] Not available 2019 14:53:14 Unspecified Relation Acute stroke [email or web address] Not available 10/2024 15:03:51 Mother Diabetes mellitus [email or web address] Not available 2019 14:53:42 Sister Asthma [email or web address] Not available 14:53:49 [id number]|2024-12-26 13:46:00|2024-12-26 13:46:00|XMS_ITS|SHARMAINE QUINTANA|External Medical Summaries|[id number]|" Referral Summary Created on: December 26, 2024 Priya Chow : 1980 Sex: Female Author Organization [id number] Address [address] [place] [address] Care Team Providers Care Newborn Photographer Name Role Phone Tori Burdick DO Primary Care Provider [phone]- [phone] Karine Valdivia MD Unavailable +1- [phone] Allergies No known active allergies Medications cetirizine [...] on file Legal Sex Female 8:07 PM MANAGER CHANNEL Gender Identity Not on file Sexual Orientation [...] Read Routine (OP Routine) 07/03/2023 1:13 PM MANAGER CHANNEL Mass of breast, unspecified laterality from Last 3 Months or Most Recently Relevant to Health Maintenance Results * Diagnostic Mammogram Bilateral W Sarbjit (07/03/2023 1:13 PM MANAGER CHANNEL) Anatomical Region Laterality Modality Breast Bilateral Mammography 07/03/2023 1:56 PM MANAGER CHANNEL Impressions 07/03/2023 1:59 PM MANAGER CHANNEL Findings consistent with multiple foci of fat [...] and agrees with it. Electronically signed by: Tulio Hernandez 07/03/2023 1:59 PM MANAGER CHANNEL EXAMINATION: BILATERAL DIGITAL DIAGNOSTIC MAMMOGRAM INCLUDING CAD [...] Most Recently Relevant to Health Maintenance [place] [address] [place] [address] [place] [address] Care Teams Newborn Photographer Relationship Specialty Start Date End Date Tori Burdick DO PCP - General Internal Medicine 04/06/17 Karine Valdivia MD [address] [facility] [address] [address] Allergy and Immunology 10/30/23 "
[2024-12-26 14:43] VITALS: BP 111/78; PULSE 81; RESP 16; TEMP 36.4; O2SAT 100
--- NOTE | 2024-12-26 15:52 | ED_ITS ---
HPI - General Adult General Chief complaint: Chest Pain <Sadaf Hyman December, - Last Filed: 12/26/24 15:59> Stated complaint: CP/indigestion since 0800, rad up to neck/jaw <Sadaf Hyman December, - Last Filed: 12/26/24 15:59> Time Seen by Provider: 12/26/24 15:52 <Sadaf Hyman December, - Last Filed: 12/26/24 15:59> Focused HPI: Priya Chow is a 44 y/o female who presents today with reports of having mid chest pain that started at 0700 today she thought it was indigestion, she had only had coffee so far for the day and then the pain became much worse not like her typical indigestion and radiating up to her throat/shoulders and upper back. She was at a meeting at work and then all of a sudden got nauseated and had to run to the bathroom and vomited. She has Pepcid/ OMeprazole 40 mg / 6 pepto bismol and tried milk and still having chest pain she states the pain has improved some but she still has pain to her jaw and right shoulder rating at a 3/10 but was at a 9 or 10 most of the day * hx of cholecystectomy 1 year ago denies abdominal pain Denies SOB GENERAL: Well-appearing, well-nourished, and in no acute distress. HEAD: Normocephalic, atraumatic. CHEST: Clear to auscultation. No respiratory distress. HEART: Regular rate and rhythm. NEURO: Alert and oriented x3. Patient screened in triage and initial orders placed. Additional care and disposition to be based upon diagnostic testing and treatment. <Sadaf Hyman December, - Last Filed: 12/26/24 15:59> Focused HPI: Priya Chow is a 44 y/o female who presents today with reports of having mid chest pain that started at 0700 today she thought it was indigestion, she had only had coffee so far for the day and then the pain became much worse not like her typical indigestion and radiating up to her throat/shoulders and upper back. She was at a meeting at work and then all of a sudden got nauseated and had to run to the bathroom and vomited. She has Pepcid/ OMeprazole 40 mg / 6 pepto bismol and tried milk and still having chest pain she states the pain has improved some but she still has pain to her jaw and right shoulder rating at a 3/10 but was at a 9 or 10 most of the day * hx of cholecystectomy 1 year ago denies abdominal pain Denies SOB GENERAL: Well-appearing, well-nourished, and in no acute distress. HEAD: Normocephalic, atraumatic. CHEST: Clear to auscultation. No respiratory distress. HEART: Regular rate and rhythm. NEURO: Alert and oriented x3. Patient screened in triage and initial orders placed. Additional care and disposition to be based upon diagnostic testing and treatment. <Loren Sanchez PA-C - Last Filed: 12/27/24 03:00> Source: patient <DANIEL Garay Last Filed: 12/27/24 03:00> Mode of arrival: ambulatory <Loren Sanchez PA-C - Last Filed: 12/27/24 03:00> Limitations: no limitations <DANIEL Garay Last Filed: 12/27/24 03:00> History of Present Illness HPI narrative: Agree with above HPI. Does take omeprazole daily. Reports slight shortness of breath. No significant abdominal pain. <Loren Sanchez PA-C - Last Filed: 12/27/24 03:00> Related Data Home medications: Home Medications Medication Instructions Recorded Confirmed Last Taken Type famotidine 20 mg tablet (Acid 20 mg PO DAILY 09/08/24 09/17/24 Unknown History Watch Assembler (famotidine)) <Sadaf Lott, MARINE SERVICE MANAGER - Last Filed: 12/26/24 15:59> Allergies/adverse reactions: Allergies Allergy/AdvReac Type Severity Reaction Status Date / Time Sulfa (Sulfonamide Allergy Severe Anxiety Verified 12/26/24 13:43 Antibiotics) sulfamethoxazole (From AdvReac Anxiety Verified 12/26/24 13:43 Bactrim) trimethoprim (From Bactrim) AdvReac Anxiety Verified 12/26/24 13:43 <Sadaf Lott, MARINE SERVICE MANAGER - Last Filed: 12/26/24 15:59> Review of Systems 2 Review of Systems: All systems reviewed & are unremarkable except as noted in HPI. <Loren Sanchez PA-C - Last Filed: 12/27/24 03:00> All systems reviewed & are unremarkable except as noted in HPI and below < Loren Sanchez PA-C - Last Filed: 12/27/24 03:00> [facility] Past Medical History Medical History: Medical History Hospital discharge follow-up Encounter for surgical aftercare following surgery on the digestive system Excessive cerumen in both ear canals Right hand pain Wrist pain, right Acute sinusitis Urinary retention Hematuria Hiatal hernia Epigastric pain Umbilical hernia without obstruction and without gangrene Asthma Urinary tract infection symptoms Umbilical hernia Abdominal pain Abnormal CBC Vitamin D deficiency Fatigue Allergies <Sadaf Lott, MARINE SERVICE MANAGER - Last Filed: 12/26/24 15:59> Surgical History Surgical History: Surgical History H/O abdominal surgery History of laparoscopic cholecystectomy 12/12/23 1. Laparoscopic cholecystectomy with cholangiography, da Cezar assisted 2. Interpretation of cholangiography 3. Open 1 cm umbilical hernia repair History of hip surgery Hx of LASIK <Sadaf Lott, MARINE SERVICE MANAGER - Last Filed: 12/26/24 15:59> Family History Family History: Family History Father Patient's father is in good health Mother Diabetes mellitus Pernicious anemia Sibling Neville sarcoma <Sadaf Hyman December,N - Last Filed: 12/26/24 15:59> Social History Social History: Social History Social History: Caffeine-daily Smoking status: Never smoker Alcohol intake: current Drinks per week: 4 Alcohol use details: socially Substance use: never Substance use type: does not use Do You Feel Safe in your Home?: Yes Lack of Transportation: No Lack of Food: Never True Current Housing: I Have Housing Concerned About Future Housing: No Difficulty Paying Gas/Electric Bills: No Difficulty Paying for Meds: No Currently Unemployed: No Education: Bachelor's Degree Difficulty w/ Childcare or Family Care: No Living arrangements: with family Spiritual care concerns: No <Sadaf Lott, MARINE SERVICE MANAGER - Last Filed: 12/26/24 15:59> Exam 2 Narrative: GENERAL: Well appearing, well-nourished, non-toxic, in no acute distress. HEAD: Normocephalic, atraumatic. RESPIRATORY: Airway patent, respirations nonlabored. Clear to auscultation bilaterally, no rales, rhonchi, wheezing. CARDIOVASCULAR: Regular rate and rhythm without murmurs, rubs, or gallops. ABDOMINAL: Soft, nontender, nondistended. Normoactive BS. MUSCULOSKELETAL: Moves all extremities. No gross deformities. No chest wall tenderness to palpation. No tenderness to palpation throughout thoracic region. SKIN: Warm, dry, normal color. NEURO: A&O X3. Speech clear. Cranial nerves II-XII grossly intact. Steady gait. No ataxic movements. PSYCHIATRIC: Appropriate mood and affect. Normal interaction. <Loren Sanchez PA-C - Last Filed: 12/27/24 03:00> Course Vital Signs Vital signs: Vital Signs Temperature 97.6 F 12/26/24 14:43 Pulse Rate 81 12/26/24 14:43 Respiratory Rate 16 12/26/24 14:43 Blood Pressure 111/78 12/26/24 14:43 Pulse Oximetry 100 12/26/24 14:43 Oxygen Delivery Room Air 12/26/24 14:43 Temperature 97.9 F 12/26/24 21:56 Pulse Rate 76 12/26/24 21:56 Respiratory Rate 16 12/26/24 21:56 Blood Pressure 127/82 12/26/24 21:56 Pulse Oximetry 99 12/26/24 21:56 Oxygen Delivery Room Air 12/26/24 19:31 <Sadaf Lott, MARINE SERVICE MANAGER - Last Filed: 12/26/24 15:59> Vital Signs Temperature 97.6 F 12/26/24 14:43 Pulse Rate 81 12/26/24 14:43 Respiratory Rate 16 12/26/24 14:43 Blood Pressure 111/78 12/26/24 14:43 Pulse Oximetry 100 12/26/24 14:43 Oxygen Delivery Room Air 12/26/24 14:43 Temperature 97.9 F 12/26/24 21:56 Pulse Rate 76 12/26/24 21:56 Respiratory Rate 16 12/26/24 21:56 Blood Pressure 127/82 12/26/24 21:56 Pulse Oximetry 99 12/26/24 21:56 Oxygen Delivery Room Air 12/26/24 19:31 <Loren Sanchez PA-C - Last Filed: 12/27/24 03:00> Medical Decision Making MDM Narrative Medical decision making narrative: Patient presented to ED with chest pain/indigestion that began this morning, worsening throughout the day. Tried several vgtt-[id number] medications without improvement. History of GERD, on omeprazole. Vital signs are stable upon arrival. Patient in no acute distress. Will order Protonix and GI cocktail. EKG w/ NSR, no ischemic changes. Baseline troponin undetectable. This troponin was obtained approximately 10 hours after symptom onset. Would expect elevation of troponin and if cardiac in origin. Very low suspicion for ACS at this time. HEART score =0 D-dimer within normal range. Chest x-ray is clear. Remainder of basic laboratory studies are unremarkable. On reeval, after GI cocktail, patient feeling remarkably improved. I discussed my suspicion for acid reflux/gastritis picture. Low suspicion for ACS. Patient has previously been on omeprazole. Will increase to pantoprazole. Will refer to GI for further evaluation. Patient given strict return precautions. She is in agreement with plan. Feels comfortable going home. Discharged in stable condition. Vital signs stable at time of D/C. <DANIEL Garay Last Filed: 12/27/24 03:00> Medical Records Medical records reviewed: Yes I reviewed the external patient's medical records. <Loren Sanchez PA-C - Last Filed: 12/27/24 03:00> Vital Signs Vital Signs: Vital Signs Temperature 97.6 F 12/26/24 14:43 Pulse Rate 81 12/26/24 14:43 Respiratory Rate 16 12/26/24 14:43 Blood Pressure 111/78 12/26/24 14:43 Pulse Oximetry 100 12/26/24 14:43 Oxygen Delivery Room Air 12/26/24 14:43 Temperature 97.9 F 12/26/24 21:56 Pulse Rate 76 12/26/24 21:56 Respiratory Rate 16 12/26/24 21:56 Blood Pressure 127/82 12/26/24 21:56 Pulse Oximetry 99 12/26/24 21:56 Oxygen Delivery Room Air 12/26/24 19:31 <Sadaf Lott, MARINE SERVICE MANAGER - Last Filed: 12/26/24 15:59> Vital Signs Temperature 97.6 F 12/26/24 14:43 Pulse Rate 81 12/26/24 14:43 Respiratory Rate 16 12/26/24 14:43 Blood Pressure 111/78 12/26/24 14:43 Pulse Oximetry 100 12/26/24 14:43 Oxygen Delivery Room Air 12/26/24 14:43 Temperature 97.9 F 12/26/24 21:56 Pulse Rate 76 12/26/24 21:56 Respiratory Rate 16 12/26/24 21:56 Blood Pressure 127/82 12/26/24 21:56 Pulse Oximetry 99 12/26/24 21:56 Oxygen Delivery Room Air 12/26/24 19:31 <Loren Sanchez PA-C - Last Filed: 12/27/24 03:00> Lab Data Lab results reviewed: Yes I reviewed the patient's lab results. <Loren Sanchez PA-C - Last Filed: 12/27/24 03:00> Result diagrams: 12/26/24 20:15 12/26/24 20:15 <Sadaf Lott, MARINE SERVICE MANAGER - Last Filed: 12/26/24 15:59> Labs: Lab Results 12/26/24 Range/Units 20:15 WBC 7.7 (4.5-10.0) K/mm3 RBC 4.79 (4.2-5.4) M/mm3 Hgb 14.2 (12.0-15.0) g/dL Hct 43.7 (37.0-47.0) % MCV 91.2 (80-100) fl MCH 29.6 (26-34) pg MCHC 32.5 (32-36) g/dl RDW 12.7 (11.5-14.5) % Plt Count 250 (150-375) k/mm3 MPV 10.2 (7.4-10.4) fl Immature Gran % (Auto) 0.1 (0-0.5) % Neut % (Auto) 59.6 (45.5-73.1) % Lymph % (Auto) 31.6 (18.3-44.2) % [place] % (Auto) 5.2 (2.6-8.5) % Eos % (Auto) 2.7 (0-4.4) % Baso % (Auto) 0.8 (0.2-1.2) % Lymph # (Auto) 2.42 (0.9-3.2) K/mm3 [place] # (Auto) 0.4 (0.1-0.6) K/mm3 Eos # (Auto) 0.2 (0-0.3) K/mm3 Baso # (Auto) 0.1 (0.0-0.1) K/mm3 Abs Immat Gran (auto) 0.01 (0.00-0.031) K/mm3 Absolute Neuts (auto) 4.6 (1.3-6.7) K/mm3 Absolute Nucleated RBC 0.000 (0.0-0.012) K/mm3 Nucleated RBC % 0.0 (0.0-0.2) % PT 13.3 (11.1-14.7) Seconds INR 1.0 APTT 24.3 (22.3-36.8) Seconds D-Dimer 0.46 (<0.48) ug/mL Sodium 138 (137-145) mmol/L Potassium 3.7 (3.4-5.0) mmol/L Chloride 105 (98-107) mmol/L Carbon Dioxide 23 (22-30) mmol/L Anion Gap 10 (4-12) mmol/L BUN 9 (7-17) mg/dL Creatinine 0.65 L (0.7-1.0) mg/dL Estim Creat Clear Calc 86 ml/min Estimated GFR > 60 (59 - ) Glucose 144 H (65-110) mg/dL Calcium 9.2 (8.4-10.2) mg/dL Total Bilirubin 0.4 (0.2-1.3) mg/dL AST 30 (14-36) U/L ALT 22 (6-35) U/L Alkaline Phosphatase 50 (38-126) U/L Troponin I < 0.012 (0.000-0.034) ng/mL Total Protein 8.0 (6.3-8.2) g/dL Albumin 4.3 (3.5-5.1) g/dL Lipase 206 (23-300) U/L <Sadaf Lott, MARINE SERVICE MANAGER - Last Filed: 12/26/24 15:59> Lab Results 12/26/24 Range/Units 20:15 WBC 7.7 (4.5-10.0) K/mm3 RBC 4.79 (4.2-5.4) M/mm3 Hgb 14.2 (12.0-15.0) g/dL Hct 43.7 (37.0-47.0) % MCV 91.2 (80-100) fl MCH 29.6 (26-34) pg MCHC 32.5 (32-36) g/dl RDW 12.7 (11.5-14.5) % Plt Count 250 (150-375) k/mm3 MPV 10.2 (7.4-10.4) fl Immature Gran % (Auto) 0.1 (0-0.5) % Neut % (Auto) 59.6 (45.5-73.1) % Lymph % (Auto) 31.6 (18.3-44.2) % [place] % (Auto) 5.2 (2.6-8.5) % Eos % (Auto) 2.7 (0-4.4) % Baso % (Auto) 0.8 (0.2-1.2) % Lymph # (Auto) 2.42 (0.9-3.2) K/mm3 [place] # (Auto) 0.4 (0.1-0.6) K/mm3 Eos # (Auto) 0.2 (0-0.3) K/mm3 Baso # (Auto) 0.1 (0.0-0.1) K/mm3 Abs Immat Gran (auto) 0.01 (0.00-0.031) K/mm3 Absolute Neuts (auto) 4.6 (1.3-6.7) K/mm3 Absolute Nucleated RBC 0.000 (0.0-0.012) K/mm3 Nucleated RBC % 0.0 (0.0-0.2) % PT 13.3 (11.1-14.7) Seconds INR 1.0 APTT 24.3 (22.3-36.8) Seconds D-Dimer 0.46 (<0.48) ug/mL Sodium 138 (137-145) mmol/L Potassium 3.7 (3.4-5.0) mmol/L Chloride 105 (98-107) mmol/L Carbon Dioxide 23 (22-30) mmol/L Anion Gap 10 (4-12) mmol/L BUN 9 (7-17) mg/dL Creatinine 0.65 L (0.7-1.0) mg/dL Estim Creat Clear Calc 86 ml/min Estimated GFR > 60 (59 - ) Glucose 144 H (65-110) mg/dL Calcium 9.2 (8.4-10.2) mg/dL Total Bilirubin 0.4 (0.2-1.3) mg/dL AST 30 (14-36) U/L ALT 22 (6-35) U/L Alkaline Phosphatase 50 (38-126) U/L Troponin I < 0.012 (0.000-0.034) ng/mL Total Protein 8.0 (6.3-8.2) g/dL Albumin 4.3 (3.5-5.1) g/dL Lipase 206 (23-300) U/L <Loren Sanchez PA-C - Last Filed: 12/27/24 03:00> Imaging Data Attestation: I personally reviewed and interpreted this imaging study as follows: < Loren Sanchez PA-C - Last Filed: 12/27/24 03:00> Radiologist's impression: ITS Impressions Chest X-Ray 12/26/24 14:50 IMPRESSION: 1. No acute cardiopulmonary disease. <Loren Sanchez PA-C - Last Filed: 12/27/24 03:00> ECG Data EKG #1: Attestation: I personally reviewed and interpreted this ECG as follows: <Loren Sanchez PA-C - Last Filed: 12/27/24 03:00> ECG completion date: 12/26/24 <DANIEL Garay Last Filed: 12/27/24 03:00> ECG completion time: 14:07 <DANIEL Garay Last Filed: 12/27/24 03:00> EKG Interpretation: normal rate (75), sinus rhythm, no ST changes and normal QT <Loren Sanchez PA-C - Last Filed: 12/27/24 03:00> Discharge Plan Discharge Clinical Impression: Atypical chest pain GERD (gastroesophageal reflux disease) Qualifiers: Esophagitis presence: without esophagitis Qualified Code(s): K21.9 - Gastro- esophageal reflux disease without esophagitis <Sadaf Hyman December, Last Filed: 12/26/24 15:59> Patient Disposition: Home <Sadaf Hyman December, Last Filed: 12/26/24 15:59> Condition: Stable <Sadaf Hyman December, Last Filed: 12/26/24 15:59> Instructions: Antibiotic Form, Chest Pain (ED), Diet for Stomach Ulcers and Gastritis (ED), GERD (Gastroesophageal Reflux Disease) (ED) <Sadaf Hyman December, Last Filed: 12/26/24 15:59> Additional Instructions: Take Protonix daily as prescribed. Avoid foods that are very greasy, spicy, fatty, acidic. Avoid eating food late at night or laying flat after eating. Follow-up with your primary care doctor and/or GI for further evaluation. Return to the ED if you experience worsening or severe chest pain, difficulty breathing, unable to keep down food or drink, persistent fevers, pain or swelling in legs, or any other symptoms of concern. <Sadaf Hyman December, - Last Filed: 12/26/24 15:59> Patient Language: Gabonese <Sadaf Hyman December, Last Filed: 12/26/24 15:59> Prescriptions: New pantoprazole [Protonix] 40 mg tablet,delayed release (DR/EC) 40 mg PO HS 28 Days Qty: 28 0RF No Action dicyclomine 10 mg capsule 10 mg PO .ac/hs Qty: 120 3RF omeprazole 40 mg capsule,delayed release(DR/EC) 40 mg PO DAILY Qty: 30 2RF famotidine [Acid Watch Assembler (famotidine)] 20 mg tablet 20 mg PO DAILY ipratropium-albuterol 0.5 mg-3 mg(2.5 mg base)/3 mL solution for nebulization 3 ml inhalation QID PRN (Reason: shortness of breath) Qty: 90 0RF hydrocodone-acetaminophen 5-325 mg tablet 1 - 2 tablet PO Q8H PRN (Reason: pain) Qty: 20 0RF triamcinolone acetonide 0.1 % cream 1 applic topical BID PRN (Reason: rash) Qty: 30 0RF albuterol sulfate 90 mcg/actuation HFA aerosol inhaler 2 puff INHALATION Q4-6H PRN (Reason: shortness of breath or wheezing) Qty: 8.5 1RF albuterol sulfate 1.25 mg/3 mL solution for nebulization 1.25 mg inhalation Q4-6H PRN (Reason: shortness of breath or wheezing) Qty: 90 1RF Rx Instructions: Do not use concurrently with Albuterol inhaler. alprazolam [Xanax] 0.25 mg tablet 0.25 mg PO BID PRN (Reason: anxiety) Qty: 20 0RF montelukast 10 mg tablet See Rx Instructions .ROUTE .COMPLEX Qty: 30 3RF Dose Instruction: TAKE 1 TABLET BY MOUTH EVERY DAY AT BEDTIME Rx Instructions: TAKE 1 TABLET BY MOUTH EVERY DAY AT BEDTIME Trelegy Ellipta 200-62.5-25 mcg blister with device 1 inh inhalation Q24H Qty: 60 5RF Rx Instructions: rinse and spit <Sadaf Lott APRN - Last Filed: 12/26/24 15:59> Follow-up/Referrals: Arianna Rouse, CONTRACTING ENGINEER-C [Primary Care Provider] - Toribio Montaño MD [Physician] - (GI) <Sadaf Lott APRN - Last Filed: 12/26/24 15:59> Time of Disposition: 21:38 <Sadaf Lott APRN - Last Filed: 12/26/24 15:59> 21:38 <Loren Sanchez PA-C - Last Filed: 12/27/24 03:00> Quality HEART score for chest pain patients History: slightly suspicious <Loren Sanchez PA-C - Last Filed: 12/27/24 03:00> ECG: normal <Loren Sanchez PA-C - Last Filed: 12/27/24 03:00> Age: < or = to 45 years <Loren Sanchez PA-C - Last Filed: 12/27/24 03:00> Risk factors: no risk factors known <DANIEL Garay Last Filed: 12/27/24 03:00> Troponin: < or = to 1x normal limit <DANIEL Garay Last Filed: 12/27/24 03:00> Heart score: 0 <DANIEL Garay Last Filed: 12/27/24 03:00>
--- NOTE | 2024-12-26 18:44 | ED.CHESTPAIN ---
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)) Allergies Allergy/AdvReac Type Severity Reaction Status Date / Time Sulfa (Sulfonamide Allergy Severe Anxiety Verified 12/26/24 13:43 Antibiotics) sulfamethoxazole (From AdvReac Anxiety Verified 12/26/24 13:43 Bactrim) trimethoprim (From Bactrim) AdvReac Anxiety Verified 12/26/24 13:43 PMF Past Medical History Medical History Hospital discharge follow-up Encounter for surgical aftercare following surgery on the digestive system Excessive cerumen in both ear canals Right hand pain Wrist pain, right Acute sinusitis Urinary retention Hematuria Hiatal hernia Epigastric pain Umbilical hernia without obstruction and without gangrene Asthma Urinary tract infection symptoms Umbilical hernia Abdominal pain Abnormal CBC Vitamin D deficiency Fatigue Allergies Surgical History Surgical History H/O abdominal surgery History of laparoscopic cholecystectomy 12/12/23 1. Laparoscopic cholecystectomy with cholangiography, da Cezar assisted 2. Interpretation of cholangiography 3. Open 1 cm umbilical hernia repair History of hip surgery Hx of FARZAD Family History Family History Father Patient's father is in good health Mother Diabetes mellitus Pernicious anemia Sibling Neville sarcoma Social History Social History Social History: Caffeine-daily Smoking status: Never smoker Alcohol intake: current Drinks per week: 4 Alcohol use details: socially Substance use: never Substance use type: does not use Do You Feel Safe in your Home?: Yes Lack of Transportation: No Lack of Food: Never True Current Housing: I Have Housing Concerned About Future Housing: No Difficulty Paying Gas/Electric Bills: No Difficulty Paying for Meds: No Currently Unemployed: No Education: Bachelor's Degree Difficulty w/ Childcare or Family Care: No Living arrangements: with family Spiritual care concerns: No Course Vital Signs Vital signs: Vital Signs Temperature 97.6 F 12/26/24 14:43 Pulse Rate 81 12/26/24 14:43 Respiratory Rate 16 12/26/24 14:43 Blood Pressure 111/78 12/26/24 14:43 Pulse Oximetry 100 12/26/24 14:43 Oxygen Delivery Room Air 12/26/24 14:43 Temperature 97.6 F 12/26/24 14:43 Pulse Rate 81 12/26/24 14:43 Respiratory Rate 16 12/26/24 14:43 Blood Pressure 111/78 12/26/24 14:43 Pulse Oximetry 100 12/26/24 14:43 Oxygen Delivery Room Air 12/26/24 14:43 MDM - Chest Pain Medical Records Data Attestation: I reviewed the patient's medical records. Lab Data Attestation: I reviewed the patient's lab results. Imaging Data Attestation: I personally reviewed and interpreted this imaging study as follows: ECG Data EKG #1: Attestation: I personally reviewed and interpreted this ECG as follows: ECG completion date: 12/26/24 ECG completion time: 14:07 EKG Interpretation: normal rate (75), sinus rhythm and no ST changes Discharge Plan Discharge Patient Language: Mexican Prescriptions: No Action dicyclomine 10 mg capsule 10 mg PO .ac/hs Qty: 120 3RF omeprazole 40 mg capsule,delayed release(DR/EC) 40 mg PO DAILY Qty: 30 2RF famotidine [Acid Cooking Teacher (famotidine)] 20 mg tablet 20 mg PO DAILY ipratropium-albuterol 0.5 mg-3 mg(2.5 mg base)/3 mL solution for nebulization 3 ml inhalation QID PRN (Reason: shortness of breath) Qty: 90 0RF hydrocodone-acetaminophen 5-325 mg tablet 1 - 2 tablet PO Q8H PRN (Reason: pain) Qty: 20 0RF triamcinolone acetonide 0.1 % cream 1 applic topical BID PRN (Reason: rash) Qty: 30 0RF albuterol sulfate 90 mcg/actuation HFA aerosol inhaler 2 puff INHALATION Q4-6H PRN (Reason: shortness of breath or wheezing) Qty: 8.5 1RF albuterol sulfate 1.25 mg/3 mL solution for nebulization 1.25 mg inhalation Q4-6H PRN (Reason: shortness of breath or wheezing) Qty: 90 1RF Rx Instructions: Do not use concurrently with Albuterol inhaler. alprazolam [Xanax] 0.25 mg tablet 0.25 mg PO BID PRN (Reason: anxiety) Qty: 20 0RF montelukast 10 mg tablet See Rx Instructions .ROUTE .COMPLEX Qty: 30 3RF Dose Instruction: TAKE 1 TABLET BY MOUTH EVERY DAY AT BEDTIME Rx Instructions: TAKE 1 TABLET BY MOUTH EVERY DAY AT BEDTIME Trelegy Ellipta 200-62.5-25 mcg blister with device 1 inh inhalation Q24H Qty: 60 5RF Rx Instructions: rinse and spit Follow-up/Referrals: Arianna Rouse, EXPORT SALES ASSISTANT-C [Primary Care Provider] -
[2024-12-26 19:30] VITALS: PULSE 89
[2024-12-26 19:31] VITALS: BP 119/96; PULSE 81; RESP 13; O2SAT 100
--- OUTSIDE RECORDS SUMMARY | 2024-12-26 19:34 | XMS_ITS | Continuity of Care Document ---
Author Organization [facility] Address [address] [place] [address] [place] [address] Phone Care Team Providers Care Order Fulfillment Specialist Name Role Phone Dasilva OD, Genaro Unavailable Unavailable Procedures Procedure Date Office/outpatient Visit, Est Office/outpatient Visit, Est Office/outpatient Visit, Est Office/outpatient Visit, New Advance Directives Directive Yes / No Effective Date File Name No Information Encounters Encounter Description Practice Location Reason(s) For Visit Diagnoses Date Provider Providers Copied on Encounter Office/outpat ient Visit, [facility], [address] [place] [address] [address], [place], [place], [id number], tel:[phone] [facility] No Information 1-201 0 Dasilva OD Genaro. [address] [facility] , [address], [place], [place], [facility], . tel:[phone] Office/outpat ient Visit, [facility], [address] [place] [address] [address], [place], [place], [id number], [place] tel:[phone] [facility] No Information 6-201 0 Dasilva OD Genaro. [address] , [address], [place], [place], [facility], [facility], . tel:[phone] Office/outpat ient Visit, [facility], [address] [place] [address] [address], [place], [place], [id number], tel:[phone] [facility] No Information 2-201 0 Doisy Edward. [address] [facility] , [address], [place], [address], [place]. tel:[phone] Office/outpat ient Visit, [facility], [address], [place], [place], [id number], [place] tel:[phone] [facility] No Information 0-201 0 Dasilva OD Genaro. [address] [facility] , [address], [place], [address], [place]. tel:[phone] Family History Family Member Type Diagnosis Age At Onset No Information Payers Payer name Insurance type Covered republican ID Authorbigga luisarpit(s) [facility] Custom Care 09 [id number] Social History Type Description Quantity Date Captured [...]
--- OUTSIDE RECORDS SUMMARY | 2024-12-26 19:34 | XMS_ITS | Referral Summary ---
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 Narrative 07/03/2023 1:59 PM WRINGER OPERATOR EXAMINATION: BILATERAL DIGITAL DIAGNOSTIC MAMMOGRAM INCLUDING CAD [...] Health Maintenance Insurance CIG[employer] CIGNA Care Teams Buffing Wheel Operator Relationship Specialty Start Date End Date Jagdeep Burdick DO PCP - General Internal Medicine 04/06/17 Karine Valdivia MD [address] [facility] [address] [facility] [address] [place] [address] Allergy and Immunology 10/30/23
--- OUTSIDE RECORDS SUMMARY | 2024-12-26 19:34 | XMS_ITS | Clinical Summary ---
Author Organization [facility] [address] [facility] [place] Address [address] [place] [address] Care Team Providers Care Conditioning Yard Supervisor Name Role Phone Jagdeep Burdick DO Primary Care Provider [phone]- [phone] Karine Valdivia MD Unavailable +1- [phone] Allergies No known active allergies Medications cetirizine [...] on file Legal Sex Female 8:07 PM RN PROCEDURES Gender Identity Not on file Sexual Orientation [...] Read Routine (OP Routine) 07/03/2023 1:13 PM RN PROCEDURES Mass of breast, unspecified laterality from Last 3 Months or Most Recently Relevant to Health Maintenance Results * Diagnostic Mammogram Bilateral W Sarbjit (07/03/2023 1:13 PM RN PROCEDURES) Anatomical Region Laterality Modality Breast Bilateral Mammography 07/03/2023 1:56 PM RN PROCEDURES Impressions 07/03/2023 1:59 PM RN PROCEDURES Findings consistent with multiple foci of fat [...] Lor Barriga M.D. Narrative 07/03/2023 1:59 PM RN PROCEDURES EXAMINATION: BILATERAL DIGITAL DIAGNOSTIC MAMMOGRAM INCLUDING CAD [...] Most Recently Relevant to Health Maintenance Insurance [employer] CIGNA Care Teams Conditioning Yard Supervisor Relationship Specialty Start Date End Date Jagdeep Burdick DO PCP - General Internal Medicine 04/06/17 Karine Valdivia MD [address] [facility] [address] [address] Allergy and Immunology 10/30/23
--- OUTSIDE RECORDS SUMMARY | 2024-12-26 19:34 | XMS_ITS | Clinical Summary ---
Author Organization [facility] Address [address] [place] [address] Care Team Providers Care Group Supervisor Yard Name Role Phone Unavailable Primary Care Provider [...]
--- OUTSIDE RECORDS SUMMARY | 2024-12-26 19:34 | XMS_ITS | Clinical Summary ---
Author Organization [facility] Address [address] [place] [address] Care Team Providers Care R&D Lab Technician Name Role Phone Unavailable Primary Care Provider Unavailabl e Source Comments [facility],non-owned Affiliates and Associated Physician Practices is amultiple site organization consisting of ambulatory clinics and hospital sitesin [place], [place], [place] and [place]. This disclosure is being madepursuant to the Care Everywhere program and may not contain all information available regarding this patient. Last updated 18.[facility] Social History Tobacco Use Types Packs/Day Years Used Date Smoking Tobacco: Never Assessed Comments Unknown Sex and Gender Information Value Date Recorded Sex Assigned at Not on file Legal Sex Female 12:01 PM NECK CUTTER Gender Identity Not on file Sexual Orientation [...] SINGER Subscriber ID:Not on file (Home) Address: [address] [place] [id number] Payer ID:Not on file Group ID:Not on file Type:Self Pay Address: [place], [place] CIG[employer] * Guarantor: JESSICA SINGER Account Type Relation to Patient Date of Phone Billing Address Personal/Family [address] [place] [phone] [employer] * Guarantor: JESSICA SINGER Account Type Relation to Patient Date of Phone Billing Address Personal/Family [address] [place] [address] * Guarantor: JESSICA SINGER Account Type Relation to Patient Date of Phone Billing Address Personal/Family [address] [place] [address]
[2024-12-26] MEDS: BELLADONNA ALK/PHENOB ELIX 10 ML, MAG HYDROX/ALUMINUM HYD/SIMETH 30 ML, LIDOCAINE 2% VI... PO (19:55)
[2024-12-26 20:22] LABS: Basophils Absolute Auto 0.1 K/mm3 (0.0-0.1); Basophils Percent Auto 0.8 % (0.2-1.2); Eosinophils Absolute Auto 0.2 K/mm3 (0-0.3); Eosinophils Percent Auto 2.7 % (0-4.4); Hematocrit 43.7 % (37.0-47.0); Hemoglobin 14.2 g/dL (12.0-15.0); Immature Granulocyte Absolute 0.01 K/mm3 (0.00-0.031); Immature Granulocyte Percent A 0.1 % (0-0.5); Lymphocytes Absolute Auto 2.42 K/mm3 (0.9-3.2); Lymphocytes Percent Auto 31.6 % (18.3-44.2); Mean Corpuscular HGB Conc 32.5 g/dl (32-36); Mean Corpuscular Hemoglobin 29.6 pg (26-34); Mean Corpuscular Volume 91.2 fl (80-100); Mean Platelet Volume 10.2 fl (7.4-10.4); Monocytes Absolute Auto 0.4 K/mm3 (0.1-0.6); Monocytes Percent Auto 5.2 % (2.6-8.5); Neutrophils Absolute Auto 4.6 K/mm3 (1.3-6.7); Neutrophils Percent Auto 59.6 % (45.5-73.1); Platelet Count Result 250 k/mm3 (150-375); Red Blood Count 4.79 M/mm3 (4.2-5.4); Red Cell Distribution Width 12.7 % (11.5-14.5); White Blood Count 7.7 K/mm3 (4.5-10.0)
[2024-12-26 20:32] LABS: Alanine Aminotransferase 22 U/L (6-35); Albumin Level 4.3 g/dL (3.5-5.1); Alkaline Phosphatase 50 U/L (38-126); Anion Gap 10 mmol/L (4-12); Aspartate Amino Transferase 30 U/L (14-36); Bilirubin,Total 0.4 mg/dL (0.2-1.3); Blood Urea Nitrogen 9 mg/dL (7-17); Calcium 9.2 mg/dL (8.4-10.2); Carbon Dioxide 23 mmol/L (22-30); Chloride 105 mmol/L (98-107); Estimated CRCL calculation 86 ml/min; Estimated Glomerular Filt Rate > 60; Glucose 144 mg/dL (65-110); Lipase 206 U/L (23-300); Potassium 3.7 mmol/L (3.4-5.0); Prothrombin Time 13.3 Seconds (11.1-14.7); Sodium 138 mmol/L (137-145)
[2024-12-26 20:33] LABS: Partial Thromboplastin Time 24.3 Seconds (22.3-36.8)
[2024-12-26 20:36] LABS: D Dimer 0.46 ug/mL (<0.48)
[2024-12-26 20:44] LABS: Troponin I < 0.012 ng/mL (0.000-0.034)
[2024-12-26] MEDS: ACETAMINOPHEN 500 MG TABLET 1000 MG PO (21:39)
[2024-12-26 21:54] VITALS: BP 127/82; PULSE 76; RESP 16; TEMP 36.6; O2SAT 99
[2024-12-26 21:56] VITALS: BP 127/82; PULSE 76; RESP 16; TEMP 36.6; O2SAT 99
== END 2024-12-26 21:58 | disposition home or self-care (01) ==
PROVIDERS: Emergency Medicine; Emergency Provider Physician Assistant; PCP Clinical Nurse Specialist
DX: R07.89 Other chest pain (principal); K21.9 Gastro-esophageal reflux disease without esophagitis; J45.909 Unspecified asthma, uncomplicated; E55.9 Vitamin D deficiency, unspecified
CPT/HCPCS: 36415; 71046; 80053; 83690; 84484; 85025; 85380; 85610; 85730; 93005; 99284; A9270

== ENCOUNTER 2025-06-05 10:32 | Outpatient (CLI) | payer OTHER, SELFPAY ==
--- OUTSIDE RECORDS SUMMARY | 2024-01-26 16:30 | XMS_ITS ---
Author Organization [facility] [employer] ([id number]) Address [address] [place] [address] Care Team Providers Care Salesperson Driver Name Role Phone Fannyeder Jagdeep Primary Care Provider Unavailab le Karine Valdivia Unavailable [phone] ZZ-Migration, Provider Unavailable Unavailab adele Allergies Allergen (clinical drug ingredient) Drug/Non Drug Allergy documented on EMR Reaction Allergy Type Onset Date Status sulfamethoxazole / trimethoprim Bactrim dizziness, shortness of breath, tachycardia taken for skin infection Drug Allergy Active REASON FOR VISIT [facility] Encounter Medications Medication SIG (Take, Route, Frequency, Duration) Notes Start Date End Date Status Famotidine 20 MG 1 tab(s) orally twice a day; Duration: 30 days 10/10/2023 Active ZyrTEC Allergy 10 MG 1 tab(s) orally once a day Active Cetirizine HCl 10 MG 1 tab(s) orally once a day; Duration: 30 days 10/10/2023 Active Albuterol Sulfate *Please review and pick correct strength-formulation from [facility] options. If intended option is not shown, discontinue and re-order from Quick Search* Active Encounters Encounter Location Date Provider Diagnosis DAKOTAH - [address] [address] 01/26/2024 Provider ZZ-Migration Dermatitis, unspecified L30.9 Assessments Encounter Date Diagnosis (ICD Code) Assessment Notes Treatment Notes Treatment Clinical Notes Section Notes 01/26/2024 Dermatitis, unspecified (ICD-10 - L30.9) Plan Of Treatment Medication Medication Name Sig Start Date Stop Date Notes Famotidine 20 MG 1 tab(s) orally twic e a day; Duration: 30 days 10/10/2023 Cetirizine HCl 10 MG 1 tab(s) orally onc e a day; Duration: 30 days 10/10/2023 Progress Notes * Topher SINGEROB: [birth year] (45 yo F)Acc No.[id number]:01/26/2024 Patient: Priya DAVID Provider: Lynne Santoro :1980 A ge:43 Y S ex:Female Date:01/26/2024 Address:[address] [place] [address], [id number] Pcp:Jagdeep Burdick Subjective: * Chief Complaints: * 1 . Multum To [facility] Conversion Encounter. * Medical History: * Medications: T aking Albuterol Sulfate , Notes to Pharmacist: *Please review and pick correct strength-formulation from [facility] options. If intended option is not shown, discontinue and re-order from Quick Search*, Taking ZyrTEC Allergy 10 MG Tablet 1 tab(s) orally once a day * Allergies: B actrim: dizziness, shortness of breath, tachycardia taken for skin infection. Objective: * Vitals: Assessment: * Assessment: 1. D ermatitis, unspecified - L30.9 (Primary) Plan: * Treatment: * Billing Information: * Visit Code: * Procedure Codes: * Electronic signature of Estefania PangZ-Migration on 06/05/2025 at 10:55 AM CDT Sign off status: Pending * Provider: Lynne Santoro Date: 0 01/26/2024 Generated for Jalen manzanares/Cheryle/Taraitting on: 1 10:55 AM CDT
--- NOTE | ~2025-06-05 | MMUS_ITS ---
EXAMINATION: MM diagnostic shari BI w virginie, US breast RT limited INDICATION: 45-year old female; Presents for evaluation of palpable lump in the right breast felt by her. Prior history of fat injections into the breast 2022. COMPARISON: 01/31/2024 through 04/26/2020 TECHNIQUE: Digital breast tomosynthesis CC and MLO views of Both breasts were obtained with computer-aided detection to assist in interpretation of the study. A radiopaque skin marker was placed over the area of RIGHT breast palpable lump area. MAMMOGRAM FINDINGS: There are scattered areas of fibroglandular density. There are no suspicious masses, calcifications, architectural distortion or any other abnormality in either breast. Benign-appearing coarse and rim calcifications diffusely scattered in both breasts. No suspicious mammographic abnormality correlates to the radiopaque skin marker. RIGHT BREAST ULTRASOUND FINDINGS: Targeted sonographic evaluation of the palpable area was completed. There is no sonographic abnormality that correlates to the area of palpable lump. IMPRESSION: 1. No mammographic or sonographic finding correlates to the palpable lump in the RIGHT breast. 2. No mammographic evidence of malignancy in either breast. Recommendations: Clinical management of patient's palpable lump. Follow-up as clinically warranted. Annual screening bilateral mammography in 12 months BI-RADS 2, BENIGN Reviewed, dictated and finalized at location B. IMPRESSION: 1. No mammographic or sonographic finding correlates to the palpable lump in th e RIGHT breast. 2. No mammographic evidence of malignancy in either breast. Recommendations: Clinical management of patient's palpable lump. Follow-up as clinically warrant ed. Annual screening bilateral mammography in 12 months BI-RADS 2, BENIGN
--- OUTSIDE RECORDS SUMMARY | 2025-06-05 10:56 | XMS_ITS | Clinical Summary ---
Author Organization [facility] Address [address] [place] [address] Care Team Providers Care Senior Systems Software Engineer Name Role Phone Unavailable Primary Care Provider [...] of 3 - 19+ 3-dose series) 2000 HPV Vaccines (1 - 3-dose SCD M series) 2008 Cervical Cancer Screening Pa p with HPV Testing (Age 30 to 64) Every 5 Years 2011 Cervical Cancer Screening with HPV 2011 Mammogram Screening 2021 COVID-19 Vaccine (2024-2 6 season) 2025 Influenza Adult (#1) 2025 Hepatitis A Vaccines Aged Out No long er eligible based [...]
--- OUTSIDE RECORDS SUMMARY | 2025-06-05 10:56 | XMS_ITS | Data Portability ---
Author Organization [facility] Address [address] [place] [address] Care Team Providers Care Icu Clerk Name Role Phone TORI BORJA Primary Care Provider Assessment Encounter Date Assessment Date Assessment LastModified by Organization Details LastModified Time 09/15/2024 09/15/2024 Annual gynecological exam performed. Patient will come back in a year unless there are new symptoms. [email or web address] Not available 09/15/2024 15:09:47 Plan of Treatment Reminders Order Date Submit Date Provider Last Modified By Organization Details Last Modified Time Details Appointments None recorded. Lab unlisted lab - women's health swab plus, ANN-MARIE 2024 025 [facility] (Lab), [address], [place], [address], 14:26:20 Referral None recorded. Procedures None recorded. Surgeries None recorded. Imaging US, pelvis 2024 [address], [address], [place], [address], 20:43:03 US, transvagina l [address]24 [address], [address], [place], [address], 20:43:03 Medication Orders fluconazole 150 mg tablet 2024 025 [facility][id number], [address], [place], [place], [id number], 5 12:28:36 nystatin-tr iamcinolone 100,000 unit/gram-0 .1 % topical ointment 2024 025 [facility] #30576, [address], [place], [place], [id number], 5 12:28:35 metronidazo le 500 mg tablet 2024 [facility]12575, [address], [place], [place], [id number], 5 05:01:06 terconazole 0.8 % vaginal cream 2024 [facility] #38374, [address], [place], [place], [id number], 5 16:44:51 estradiol 0.05 mg/24 hr semiweekly transdermal patch 2024 025 [facility], [address], [place], [place], [id number], 5 11:58:04 Prometrium 200 mg capsule 2024 025 [facility] #35864, [address], [place], [place], [id number], 5 11:58:05 EnilloRing 0.12 mg-0.015 mg/24 hr vaginal ring 2024 [facility], [facility] [place], [address], 5 10:52:55 Patient TargetsNo targets recorded. Patient InstructionsNo instructions recorded. Reason for Referral None Reported. Results Created Date Observation Date Name Description Value Unit Range Abnormal Flag Note LastModifiedBy Organization Detail LastModifiedTime 04/30/2004/30/2025 [facility], ANN-MARIE bacterial vaginosis (bv), tma Negati ve negati ve Not Available [facility] (Lab) [address], [place], [address], 05/01/2025 14:26:20 04/30/20 25 04/30/2025 [facility] ANN-MARIE roger species, tma Negati ve negati ve Not Available [facility] (Lab) [address], [place], [address], 05/01/2025 14:26:20 04/30/20 25 04/30/2025 [facility] ANN-MARIE roger glabrata, tma Negati ve negati ve Not Available [facility] (Lab) [address], [place], [address], 05/01/2025 14:26:20 04/30/20 25 04/30/2025 [facility] ANN-MARIE trichomonas vaginalis, tma Negati ve negati ve Not Available [facility] (Lab) [address] [place], [address], 05/01/2025 14:26:20 04/30/20 25 04/30/2025 [facility] ANN-MARIE chlamydia trachomatis, PCR Negati ve negati ve Not Available [facility] (Lab) [address] [place], [address], 05/01/2025 14:26:20 04/30/20 25 04/30/2025 [facility] ANN-MARIE neisseria gonorrhoeae, PCR Negati ve negati ve Bacte rial vagin osis detec ts the follo wing bacte cedrick assoc iated with bacte rial vagin osis (BV): Lacto bacil lonny (L. gasse ri, L. crisp atus and L. jense tigist), Gardn erell a vagin dinroah, and Atopo bium vagin ae. A singl e quali tativ e resul t is repor varghese base on instr ument softw are to deter mine BV posit elias or negat elias statu s. The [facility] speci es group tests for C. albic ans, C. tropi calis , C. parap umair is, C. dubli niens is. Testi ng is perfo rmed using the Trans cript ion Media varghese Ampli ficat ion metho d. Tests for Hailey da glabr arlene, Trich omona s vagin dinorah, Chlam ydia trach omati s, and Neiss eria gonor rhoea e are also inclu ded in this panel . Not Available [facility] (Lab) [address], [place], [address], 05/01/2025 14:26:20 03/27/20 25 03/27/2025 , pelvi s No observ ation record ed. [facility] [address] [facility] [address], [place], [address], 03/27/2025 13:35:38 03/27/20 25 03/27/2025 , trans vagin al No observ ation record ed. [facility] [address] [facility] [address], [place], [address], 03/27/2025 13:35:47 03/27/20 25 03/27/2025 , pelvi s No observ ation record ed. [email or web address], [place], [address], 04/08/2025 11:27:05 Result Notes None recorded. Problems Name Problem SNOMED Code Status Onset Date Resolution Date Notes Provider Name and Address Organization Details Recorded Time Routine antenata l care Completed 201006/10/2021 Supervis ion of other normal pregnanc y;Practi ce ID: 0001 Farnaz Easley [facility] 11:30:21 Poor growth affectin g manageme nt [id number] Completed 201006/10/2021 GROWTH POOR SGA;Prac tristen ID: 0001 Farnaz marx, [facility] 11:30:47 Antenata l screenin g Completed 201006/10/2021 Other antenata l screenin g based on amniocen tesis;Pr actice ID: 0001 Farnaz marx, [facility] 11:30:35 Delivery normal [id number] Completed 201006/10/2021 Normal delivery ;Practic e ID: 0001 Farnaz marx [facility] 11:30:50 Single live from singleto n pregnanc y [id number] Completed 201006/10/2021 Mother with single liveborn ;Practic e ID: 0001 Farnaz marx, [facility] 11:30:24 Postpart um care Completed 201006/10/2021 Routine postpart um follow-u p;Latoshati ce ID: 0001 Farnaz marx, [facility] 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 11:30:51 Screenin g for malignan t neoplasm of cervix Completed 201006/10/2021 Pap Smear;Pr actice ID: 0001 Farnaz Easley [facility] 11:30:26 Generali zed anxiety disorder [id number] Completed 201106/10/2021 Generali zed anxiety disorder ;Recorde d Elsewher e: No Locat ion: [facility] S ource: EHR [employer] Operator chilango: N Ja ce ID: 0001 Glynn lable Time: 05:30:00 PM [facility] 11:30:29 Migraine [id number] Completed 201306/10/2021 Migraine , unspecif ied without mention of intracta ble migraine ;Practic e ID: 0001 Farnaz Easley [facility] 11:30:46 Leukocyt osis [id number] Completed 201406/10/2021 LEUKOCYT OSIS NOS;Brett rded Elsewher e: No Locat ion: [facility] S ource: EHR [employer] Operator chilango: N Ja ce ID: 0001 Glynn lable Time: 01:30:00 PM [facility] 11:30:18 Female genital organ symptoms [id number] Completed 201406/10/2021 Pelvic Pain;Pra ctice ID: 0001 Farnaz Easley [facility] 11:30:27 Pregnanc y test negative [id number] Completed 201406/10/2021 Negative Pregnanc y Test;Pra ctice ID: 0001 Farnaz Easley [facility] 11:30:[address] Concept Completed 201406/10/2021 Encntr for bottom filler exam (general ) (routine ) w/o abn findings ;Practic e ID: 0001 Farnaz marx [facility] 11:30:39 Prescrip tion of contrace ption Completed 201506/10/2021 Encounte r for initial prescrip tion of contrace ptives, unspecif ied;Brett rded Elsewher e: No Locat ion: [facility] S ource: EHR [employer] Operator chilango: N Practi ce ID: 0001 Glynn lable Time: 08:30:00 AM Farnaz marx, [facility] 11:30:54 Urinary tract infectio us disease [id number] Completed 201606/10/2021 Urinary tract infectio n, site not specifie d;Practi ce ID: 0001 Farnaz marx, [facility] 11:30:53 Evaluati on finding Completed 201606/10/2021 Hematuri a, unspecif ied;Prac tristen ID: 0001 Farnaz marx, [facility] 11:30:38 Pregnanc y detectio n examinat ion Completed 201806/10/2021 Encounte r for pregnanc y test, result positive ;Recorde d Elsewher e: No Locat ion: [facility] S ource: EHR [employer] Operator chilango: N Practi ce ID: 0001 Glynn lable Time: 01:30:00 PM [facility] 11:30:57 Antenata l screenin g for malforma tion Completed 201806/10/2021 Encounte r for antenata l screenin g for malforma tions;Pr actice ID: 0001 Farnaz marx, [facility] 11:30:56 Gestatio n period, 35 weeks [id number] Completed 201806/10/2021 35 weeks gestatio n of pregnanc y;Record ed Elsewher e: No Locat ion: [facility] S ource: EHR [employer] Operator chilango: N Practi ce ID: 0001 Glynn lable Time: 08:15:00 AM Farnaz Easley [facility] 11:30:58 Uterine size for dates discrepa ncy Completed 201806/10/2021 Uterine size-paras e discrepa ncy, third trimeste r;Record ed Elsewher e: No Locat ion: Greg leyva [facility] S ource: EHR [employer] Operator chilango: N Practi ce ID: 0001 Glynn lable Time: 08:15:00 AM Farnaz amrx, [facility] 11:30:32 Gestatio n period, 38 weeks [id number] Completed 201806/10/2021 38 weeks gestatio n of pregnanc y;Practi ce ID: 0001 Farnaz marx, [facility] 11:30:23 Normal pregnanc y in multigra savita [id number] 4106 Completed 201806/10/2021 Encounte r for suprvsn of normal pregnanc y, third trimeste r;Practi ce ID: 0001 Farnaz marx, [facility] 11:30:48 Lacerati on of female perineum Completed 201806/10/2021 First degree perineal lacerati on during delivery ;Practic e ID: 0001 Farnaz marx, [facility] 11:30:33 Term pregnanc y delivere d [id number] Completed 201806/10/2021 Encounte r for full-ter m uncompli cated delivery ;Practic e ID: 0001 Farnaz marx, [facility] 11:30:30 Lochia finding Completed 201806/10/2021 Encounte r for routine postpart um follow-u p;Practi ce ID: 0001 Farnaz marx, [facility] 11:30:43 Disorder of lactatio n [id number] Completed 201806/10/2021 Other disorder s of lactatio n;Practi ce ID: 0001 Farnazhenrry Easley araseli [facility] 11:30:44 Procedur e related to breastfe eding Completed 201806/10/2021 Encounte r for care and examinat ion of lactatin g mother;P ractice ID: 0001 Farnaz Easley araseli [facility] 11:30:41 Problem Notes None recorded. Procedures Surgical History Date Name Laterality Status Provider Name and Address Organization Details Recorded Time 024 Date of Last Mammogram completed Judit [facility] 04/30/2025 12:08:00 024 Cholecystectomy completed Kellen Melo [facility] 06/23/2024 12:45:22 024 procedure on gallbladder completed TUTU Galan [facility] 09/15/2024 15:15:40 024 Date of Last Pap Smear completed Dorota Ruelas [facility] 08/14/2023 10:45:04 024 Date of Last Colonoscopy completed Juditkaycee Benitez [facility] 04/30/2025 12:07:34 023 lipofilling of breast completed JEFERSON Pickens [address], [place], [address], , P.C. 07/13/2023 12:38:17 017 procedure on hip completed Farnaz Easley [facility] 06/10/2021 11:41:46 001 extraction of wisdom tooth completed Dorota Ruelas [facility] 08/14/2023 10:47:04 Imaging Results None recorded. Procedure Notes None recorded. Medical Equipment None Reported. Allergies Allergen ID Allergen Name Allergen Category Reaction Reaction Severity Criticality Documentation Date Start Date Code Code System Note Provider Name and Address Organization Details Recorded Time 34697 Bactrim medicatio n Not available Not available Not available 07/16/2023 15498 9 RxNorm Marajessica Epperson, PAMELA [address], [place], [address] , , P.C. 3 11:07:58 31769 Substance with sulfonami de structure and antibacte rial mechanism of action (substanc e) medicatio n Not available Not available Not available 08/14/2023 81510 8003 SNOMED Dorota Ruelas [facility], [facility] 4 10:44:42 Medications Name Sig Start [...] tablet TAKE 1 TABLET BY MOUTH 1 TIME. REPEAT IN 72 HOURS NEEDED active Not Available Not Available No t Available hydrocodo ne 5 mg-acetam inophen 325 mg tablet TAKE 1 TO 2 TABLETS BY MOUTH EVERY 8 HOURS NEEDED FOR PAIN 04/30 completed Not Available Not Available Not Available promethaz ine 6.25 mg/5 mL oral syrup 04/30 completed Not Available Not Available Not Available prednison e 20 mg tablet TAKE 3 TABLETS BY MOUTH DAILY FOR 3 DAYS THEN TAKE 2 TABLETS BY MOUTH DAILY FOR 3 DAYS THEN TAKE 1 TABLET BY MOUTH DAILY FOR 3 DAYS 04/30 completed Not Available Not Available Not Available terconazo le 0.8 % vaginal cream INSERT 1 APPLICAT ORFUL VAGINALL Y EVERY DAY active Not Available Not Available No t Available Zyrtec 10 mg tablet take 1 tablet by oral route every day completed Prescrib kaiden Teague e: Yes Loca tion: Greg leyva [facility] M odify By: conchita aiken DateTime : 07/21/20 11 09:30:00 AM Not Available Not Available Not Available metronida zole 500 mg tablet Take 1 tablet twice a day by oral route for 7 days. 05/14 completed Not Available Not Available Not Available acetamino phen 300 mg-codein e 30 mg tablet TAKE 1 TABLET BY MOUTH EVERY 6 HOURS NEEDED FOR POST-OP PAIN 06/12 completed Not Available Not Available Not Available estradiol 0.05 mg/24 hr semiweekl y transderm al patch Apply 1 patch twice a week by transder mal route. 2024 active Not Available Not Available Not Avai lable sulfameth oxazole 800 mg-trimet hoprim 160 mg tablet TAKE 1 TABLET BY MOUTH TWICE DAILY FOR 7 DAYS 08/14 completed Not Available Not Available Not Available omeprazol e 40 mg capsule,d elayed release TAKE 1 CAPSULE BY MOUTH DAILY 0.5 TO 1 HOUR BEFORE BREAKFAS T 04/30 completed Not Available Not Available Not Available triamcino lone acetonide 0.1 % topical cream APPLY TOPICALL Y TO THE AFFECTED AREA TWICE DAILY NEEDED FOR RASH active Not Available Not Available No t Available ondansetr on 8 mg disintegr ating tablet TAKE 1 TABLET BY MOUTH THREE TIMES DAILY NEEDED FOR NAUSEA 06/12 completed Not Available Not Available Not Available nystatin- triamcino lone 100,000 unit/gram -0.1 % topical ointment APPLY TOPICALL Y TO THE AFFECTED AREA TWICE DAILY FOR 7 DAYS active Not Available Not Available No t Available alprazola m 0.25 mg tablet TAKE 1 TABLET BY MOUTH TWICE DAILY NEEDED FOR ANXIETY active Not Available Not Available No t Available famotidin e 20 mg tablet TAKE 1 TABLET BY MOUTH DAILY AT BEDTIME active Not Available Not Available No t Available Zoloft 50 mg tablet take 1 tablet (50MG) by oral route every day 10/16 completed Prescrib ed Elsewher e: No Locat ion: [facility] odify [facility] : 10/11/19 12 05:30:00 PM Not Available Not Available Not Available benzonata te 100 mg capsule TAKE 1 CAPSULE BY MOUTH EVERY 6 HOURS NEEDED FOR COUGH 04/30 completed Not Available Not Available Not Available cephalexi n 500 mg capsule Take 1 capsule every 12 hours by oral route for 7 days. 08/14 completed Not Available Not Available Not Available pantopraz ole 40 mg tablet,de layed release TAKE 1 TABLET BY MOUTH AT BEDTIME FOR 4 WEEKS 04/30 completed Not Available Not Available Not Available venlafaxi ne 37.5 mg tablet TAKE 1 TABLET BY MOUTH DAILY 03/06 completed Not Available Not Available Not Available prednison e 50 mg tablet 09/15 completed Not Available Not Available Not Available progester one micronize d 200 mg capsule TAKE 1 CAPSULE BY MOUTH EVERY DAY active Not Available Not Available No t Available omeprazol e 20 mg capsule,d elayed release TAKE 1 CAPSULE BY MOUTH DAILY 0.5 TO 1 HOUR BEFORE BREAKFAS T active Not Available Not Available No t Available cephalexi n 500 mg tablet TAKE [...] Not Available Not Available No t Available clobetaso l 0.05 % topical ointment APPLY THIN LAYER TOPICALL Y TO THE AFFECTED AREA TWICE DAILY FOR 7 DAYS active Not Available Not Available No t Available azelastin e 137 mcg (0.1 %) nasal spray USE 2 SPRAYS IN EACH NOSTRIL DAILY active Not Available Not Available No t Available epinephri ne 0.3 mg/0.3 mL injection , auto-inje ctor INJECT 0.3 MG IN THE MUSCLE NEEDED FOR ANAPHYLA CTIC REACTION S active Not Available Not Available No t Available fluocinon mellissa 0.05 % topical solution APPLY TO AFFECTED AREA ON SCALP AND EARS TWICE DAILY NEEDED FOR ITCHING active Not Available Not Available No t Available estradiol 0.01% (0.1 mg/gram) vaginal cream Apply 1g vaginall y at bedtime every night for 2 weeks, after 2 weeks - apply 1g vaginall y at bedtime 2-3 times per week as maintena nce dose active Not Available Not Available No t [...] MOUTH EVERY 12 HOURS FOR 7 DAYS 03/06 completed Not Available Not Available Not Available dicyclomi ne 10 mg capsule TAKE [...] oral route every day 09/05 completed Prescrib ed Elsewher e: No [facility] By: jjkline Tasha aiken DateTime : 10/17/19 12 10:09:00 AM [...] Not Available Not Available No t Available CONFLICTS ANALYST-PNV-DH A 28 mg iron-1 mg-200 mg capsule take 1 capsule by oral route every day 06/10 completed Prescrib ed Elsewher e: No [facility] By: lakeisha he DateTime : 11/01/19 19 03:45:00 PM Not Available Not Available Not Available Gynazole- 1 2 % vaginal cream insert 1 applicat orful by vaginal route once 07/06 completed Prescrib ed Elsewher e: No Locat ion: [facility] odify By: prisca he DateTime : 04/26/20 15 03:59:30 PM Not Available Not Available Not Available BD Insulin Syringe Ultra-Fin e 1 mL 31 gauge x 5/16 USE SUBCUTAN EOUSLY 8 TIMES A WEEK active Not Available Not Available No t Available COVID-19 test specimen collectio n DIRECTED 06/13 completed Not Available Not Available Not Available Afluria Qd 2019- (36 mos up)(PF)60 mcg (15 mcg x4)/0.5 mL IM syringe ADM 0.5ML IM UTD 06/10 completed Not Available Not Available Not Available EnilloRin g 0.12 mg-0.015 mg/24 hr vaginal ring Insert 1 vaginal ring every 3 weeks, leave in place for 3 weeks 02/03/ 2025 07/25 /2025 completed Not Available Not Available Not Available Vitals Date Recorded Body height Body mass index (BMI) Body weight Systolic And Diastolic Provider Name and Address Organization Details Last Updated DateTime 09/15/2024 165.1 cm 25.8 kg/m2 41318.82 g 131/74 mm[Hg] TUTU Galan [facility] 09/15/2024 15:12:24 Date Recorded Body height Body mass index (BMI) Body weight Systolic And Diastolic Provider Name and Address Organization Details Last Updated DateTime 03/06/2025 165.1 cm 26 kg/m2 84661.41 g 121/78 mm[Hg] Mireya Briones [facility] 03/06/2025 10:34:19 Date Recorded Body height Body weight Body mass index (BMI) Systolic And Diastolic Provider Name and Address Organization Details Last Updated DateTime 04/23/2025 165.1 cm 95444.78 g 26.6 kg/m2 103/66 mm[Hg] Judit [facility] 04/23/2025 16:16:58 Date Recorded Body height Body mass index (BMI) Body weight Systolic And Diastolic Provider Name and Address Organization Details Last Updated DateTime 04/30/2025 165.1 cm 26.6 kg/m2 44035.78 g 107/74 mm[Hg] Judit [facility] 04/30/2025 12:04:31 Social History Question Answer Notes LastModified by Organizat ion Details LastModified Time Tobacco Smoking Status Never Smoker Not Available [facility] 06/15/2020 03:28:11 Do You Have An Advance Directive? No [email or web address] Information n ot available 09/15/2024 Are You Blind Or Do You Have Difficulty Seeing? No Information n ot available 08/09/2022 What Is Your Level Of Caffeine Consumption? Occasional [email or web address] Information not available 08/14/2023 How Much Tobacco Do You Chew? None [email or web address] Information not available 09/15/2024 In The 14 Days Before Symptom Onset, Have You Had Close Contact With A Laboratory-confirm ed COVID-19 While That Case Was Ill? No [email or web address] Information n ot available 08/14/2023 In The 14 Days Before Symptom Onset, Have You Had Close Contact With A Person Who Is Under Investigation For COVID-19 While That Person Was Ill? No [email or web address] Information not available 08/14/2023 Have You Been To An Area Known To Be High Risk For COVID-19? No [email or web address] Information not available 08/14/2023 Are You Deaf Or Do You Have Serious Difficulty Hearing? No Information not available 08/09/2022 What Type Of Diet Are You Following? REGULAR Information n ot available 08/09/2022 What Is The Highest Grade Or Level Of School You Have Completed Or The Highest Degree You Have Received? [id number] [email or web address] Information not available 09/15/2024 Are There Any Guns Present In Your Home? No [email or web address] Information not available 09/15/2024 Do You Use Protection During Sex? No Information not available 09/15/2024 Do You Use Your Seat Belt Or Car Seat Routinely? Yes [email or web address] Information not available 08/14/2023 Do You Have Smoke And Carbon Monoxide Detectors In Your Home? Yes [email or web address] Information not available 08/14/2023 How Much Tobacco Do You Smoke? No [email or web address] Information not available 09/15/2024 Do You Use Sunscreen Routinely? Yes [email or web address] Information not available 08/14/2023 Has Tobacco Cessation Counseling Been Provided? No Information not available 08/14/2023 Have You Used IV Drugs? No Information not available 09/15/2024 Do You Have Difficulty Walking Or Climbing Stairs? No Information not available 08/09/2022 Sex: Unknown Functional Status Question Answer Note LastModified by Organizat ion Details LastModified Time Do you use any illicit or recreational drugs? No [email or web address] Information not available 08/14/2023 Do you or have you ever used any other forms of tobacco or nicotine? No [email or web address] Information not available 08/14/2023 What is your level of alcohol consumption? Occasional Information not available 08/09/2022 Are you able to walk independently without assistance or assistive devices? [email or web address] Information not available 08/09/2022 Are you able to care for yourself independently? Yes Information not available 08/09/2022 Do you have difficulty dressing, bathing, grooming, or toileting? No Information not available 08/09/2022 What is your exercise level? Occasional Information not available 09/15/2024 Mental Status Question Answer Note LastModified by Organization D etails LastModified Time Do you feel stressed (tense, restless, nervous, or anxious, or unable to sleep at night)? [id number] [email or web address] Information not available 08/14/2023 Family History Relationship Description Onset Age of this Age Resolved Age Notes LastModified by Organization Details LastModified Time Maternal Grandfather History of transient ischemic attack [email or web address] Not available 2024 12:00:48 Maternal Grandfather Carcinoma in situ of lung [email or web address] Not available 12:00:48 Paternal Grandmother Malignant neoplasm of ovary suspected [email or web address] Not available 2024 12:00:48 Paternal Grandmother Carcinoma in situ of thyroid gland [email or web address] Not available 2024 12:00:48 Maternal Grandmother Dysrhythmia management [email or web address] Not available 03/27 12:00:48 Maternal Grandmother Carcinoma in situ of breast [email or web address] Not available 2024 12:00:48 Unspecified Relation Heart disease [email or web address] Not available 2019 14:53:14 Unspecified Relation Acute stroke [email or web address] Not available 12:00:48 Mother Diabetes mellitus [email or web address] Not available 2019 14:53:42 Sister Asthma [email or web address] Not available 14:53:49 Father Myocardial infarction [email or web address] Not available 03/03 14:53:56 Medical History Condition Response Allergies (Food, seasonal, environmental ) Y Other N Breast Cancer N Drug/Latex Allergies/Reactions Y Blood Transfusion N Dermatologic Disorders N Lung Disease N Defects or Inherited Disease N Breast [...] Abnormal Pap Y Date of Last Mammogram 02/11/2024 Was last menstrual period normal N STIs/STDs N HPV Vaccine N Duration of Flow (days) 4 Current Control Method Partner Vas ectomy Are cycles usually normal N Date of Last Colonoscopy 08/13/2023 Frequency of Cycle (Q days) Sexually Active? Y Menses Monthly N Age of first menstrual cycle 14 Date of Last Pap Smear 08/14/2023 Sexual Problems? N Desired Control Method None LMP Unknown N Obstetrics History GPAL:G 4 P 3 0 1 3 Type Value Full Term 3 Spontaneous 1 Living 3 Total 4 Past Encounters Encounter ID Performer Location Encounter Start Date Encounter Closed Date Diagnosis/Indication Diagnosis SNOMED-CT Code Diagnosis ICD10 Code Diagnosis IMO Codes Diagnosis [id number] [address] [address] 03/03/2020 17:34:17 03/03/2020 18:00:21 Mass of axilla 549018616 R22.2 N63.21 Left breast extending to left breast swollen, puffy area. Still breast feeding. No pain. Exam is somewhat indetermin ate so we agreed to pursue US imaging. Orders given. Time spent in visit is a total of 15 mins with at least 50% of visit consisting of counseling and review of plan of care. [id number] Sharon Franz CNM [facility] [address] [address] 03/22/2020 17:47:26 03/23/2020 10:29:43 Gynecologic examination 55938763 Z01.419 Take Calcium with Vitamin D 1200mg [...] breast exams. Pt is being scheduled with gloria for evaluation . Have mammogram yearly or [...] paper copy of today's plan if desired. [id number] Sharon Franz CNM [facility] [address],[place] [address] 04/21/2020 16:56:26 04/22/2020 15:38:47 Disorder of breast 66813722 N64.9 Yeast of the breast. Symptoms resolved with use of diflucan. Pt has additional breast follow up scheduled on Sunday. [id number] Sharon Franz CNM [facility] [address],[place] [address] 06/13/2021 10:50:14 06/13/2021 12:07:55 Gynecologic examination 24110807 Z01.419 Z11.51 Take Calcium with Vitamin D [...] breast exams. Pt is being scheduled with siteman for evaluation . Have mammogram yearly or [...] paper copy of today's plan if desired. [id number] JEFERSON Pickens [facility] [address] [address] 08/09/2022 11:01:16 08/09/2022 14:32:22 Breast lump 66466910 N63.0 Irregular periods 103775 07 N92.6 Abdominal pain 58708762 R10.9 Gynecologi c examination 28163570 Z01.419 Z11.51 Suggested Calcium with Vitamin D 1200-1500m g daily. Patient advised to get an annual flu shot in the fall and she could obtain at [facility] or [facility] clinic. Also to obtain TDap vaccinatio n [...] return to breast specialist for consultFam shreyas hx of [facility] with BC in her 70s, genetic testing discussedR TC for pelvic u/s and f/u Time spent in visit is a total of 45 mins with at least 50% of visit consisting of counseling and review of plan of care. [id number] Darion Grimaldo MD [facility] [address],[place] [address] 08/15/2022 12:32:18 08/15/2022 14:54:50 Irregular periods 69114808 N92.6 [id number] Mara Epperson PAMELA [facility] [address],[place] [address] 08/16/2022 14:14:29 08/16/2022 15:45:50 Lesion of cervix 681627433 N88.9 Today we reviewed recent TVUS - [...] review of plan of care. Irregular periods 005868 07 N92.6 [id number] Nabila Mayers MD [facility] [address],[place] [address] 08/22/2022 10:04:28 08/22/2022 11:01:37 Polyp of cervix 74197298 N84.1 Corpus luteum cyst 75913 2008 N83.10 [id number] Mara Epperson PAMELA [facility] [address] [address] 06/12/2023 10:24:52 06/12/2023 11:34:30 Tenderness of breast 63678756 N64.4 Bilateral breast tenderness in outer quadrantsw e agreed to update diagnostic shari/breast u/sorders given, encouraged to schedulede crease caffeine intake recommende df/u wit breast specialist pending imaging Time spent in visit is a total of 20 mins with at least 50% of visit consisting of counseling and review of plan of care. [id number] JEFERSON Pickens [facility] [address] [address] 07/13/2023 12:01:25 07/13/2023 12:55:42 Tenderness of breast 12422131 N64.4 Recommende d f/u with surgeon who [...] counseling and review of plan of care. [id number] JEFERSON Pickens [facility] [address] [address] 08/14/2023 10:29:38 08/14/2023 13:48:38 Gynecologic examination 29151193 Z01.419 Z11.51 WWEBC - partner with vasectomyp ap updatedSTI testing declineden couraged annual exam with [facility] in 1 yr or sooner if needed Suggested Calcium with Vitamin D daily. Patient advised to get an annual flu shot in the fall and she could obtain at [facility] or [facility] take care clinic. Also to obtain TDap [...] or respond to this email. Breast lump 67094391 N63 .0 diagnostic imaging done 07/03/2023 referral placed for breast specialist consult [id number] JEFERSON Pickens [facility] [address] [address] 09/15/2024 15:02:50 09/15/2024 16:23:21 Gynecologic examination 63207915 Z01.419 Z11.51 WWEBC - NuvaRingPa p - [...] consult advised. All questions have been answered. [facility] ion care management 412138209 Z30.9 desires to continue with Nuvaringre fills sent x 12 months, r/b/a reviewed [id number] Darion Grimaldo MD [facility] [address] [address] 06/23/2024 12:33:12 06/23/2024 13:26:54 Menopausal symptom 62523358 N95.1 44-year-ol d female with menopausal symptoms. [...] I discussed instructio ns and precaution s. [id number] JEFERSON Pickens [facility] [address],[facility] [place] [address] 03/06/2025 10:18:40 03/09/2025 13:26:23 Menopause finding 735145872 N95.1 [id number] Today we discussed Perimenopa use in-depth. Reviewed all management options (hormonal vs non-hormon al). She is going to the stop the OCP. She would like to start HRT/estrad iol transderma l patch and nightly oral prometrium . She is aware of the need to take daily prometrium while on estradiol patch. R/b/a reviewed. Med check in 4 months rec Irregular periods 482773 07 N92.6 [id number] plan pelvic u/s Time spent in visit is a total of 25 mins with at least 50% of visit consisting of counseling and review of plan of care. [id number] Darion Grimaldo MD [facility] [address],[place] [address] 03/27/2025 12:00:44 03/27/2025 12:47:39 Irregular periods 49103656 N92.6 [id number] Darion Grimaldo MD [facility] [address],[place] [address] 04/23/2025 15:57:42 04/23/2025 17:12:20 Acute vaginitis 18424969 N76.0 [id number] this patient is a 45-year-ol d female who presents for follow-up on ultrasound . We talked about her ultrasound results. Some vascularit y within the endocervix . We discussed the significan ce of this. Significan ce is unknown. I offered hysterosco pic evaluation . We agreed to hold off on hysterosco pic evaluation . We agreed to repeat ultrasound in 1 year. We talked about vaginitis. We agreed to treat her vaginitis. She has symptoms of vulvar irritation and discharge. We discussed treatment. She was given precaution s and instructio ns. She understand s the risks, benefits, and alternativ es. [id number] JEFERSON Pickens [facility] [address] [address] 04/30/2025 11:36:59 04/30/2025 14:17:13 Vulval irritation 776899285 N90.89 [id number] vaginitis/ STI panel sentvulvar care guidelines discussedr x for BV/yeastwi ll update pt with results when available and review rec/next steps Time spent in visit is a total of 25 mins with at least 50% of visit consisting of counseling and review of plan of care. Acute vaginitis 38723764 N76.0 45400 Venereal d isease screening 714698145 Z11.3 57046 Health Concerns Section Related Observation LastModified by Organization Detai ls LastModified Time None Recorded Concern Status LastModified by Organization Details LastModified Time None Recorded Advance Directives Directive N: Payers Insurance Date Sequence Insurance Name Policy Number Policy Gonzáles Covered Member ID Gonzáles Member ID Guarantor Name 04/30/2025 1 [employer] [id number] Priya Chow [id number] Priya Chow Notes Date Note Type Note Provider Name and Address Organization Details Recorded Time 5 text/html Annual GYNReported by PatientGenitourinary symptomsFor menstrual cycle, patient reportsnormal menses. For urinary symptoms, patient reportsno hematuriaandno incontinence. For vulva, patient reportsno genital lesion. For vagina, patient reportsnormal vaginal discharge.Breast symptomsFor breast, patient reportsno breast pain,no breast lump, andno nipple discharge.ContraceptionFo r current contraception, patient reportssatisfied with current contraceptionandnuvaring. Endocrine symptomsFor sexual complaints, patient reportsno sexual complaints,no pain during intercourse, andnormal libido. For menopausal symptoms, patient reportsno menopausal symptomsandnormal vaginal lubrication.Psychological symptomsFor psychological symptoms, patient reportsno depression,no anxiety, andno pmdd.Preventative measuresFor preventive measures, patient reportsencourage self breast examination,encourage regular exercise,encourage no tobacco use, andencourage regular mammograms starting age 40.44yo wweB - NuvaRing and partner with vasectomylast pap 08/2023 : nilm, HPV (-)h/o abnormal pap in 2002, normals sincemammogram UTD, last 01/2024 started NuvaRing 3 months ago, has had some BTB/irregular periods JEFERSON Pickens [address], [place], [address], , [facility] 09/15/2024 16:00:33 5 text/html 44yoPresents today to discuss perimenopause treatment options. Started OCP (lo loestrin) 2-3 months ago. Irregular periods have improved , still experiencing VMS/weight gain/fatigue. JEFERSON Pickens [address], [place], [address], , [facility] 03/09/2025 13:21:08 5 text/html this patient is a 45-year-old female who presents for follow-up on ultrasound. We talked about her ultrasound results. Some vascularity within the endocervix. We discussed the significance of this. Significance is unknown. I offered hysteroscopic evaluation. We agreed to hold off on hysteroscopic evaluation. We agreed to repeat ultrasound in 1 year. We talked about vaginitis. We agreed to treat her vaginitis. She has symptoms of vulvar irritation and discharge. Darion Grimaldo MD [address], [place], [address], , [facility] 04/23/2025 16:55:42 5 text/html Vaginal/Vulvar ProblemReported by Patient 45yoPresents for evaluation of vulvar irritation. Symptoms on and off for the past 1 month. Vulvar itching/irritation. Has been treated for yeast a few times, symptoms will improve and then return a few days later.Denies any abnormal discharge, odors, or pelvic painno new partnershas been using vaginal wipes JEFERSON Pickens [address], [place], [address], [facility] 04/30/2025 14:13:22 OBGyn Episode Ob Episode Information Episode Created Date Number of Fetuses Patient Bloodtype Patient rh Status Prepregnancy Weight lbs Domestic Partner Domestic Partner Phone Father Name Member Services Representative Status 03/03/20 20 1 CLOSED Fetus Data [...] Domestic Partner Domestic Partner Phone Father Name Member Services Representative Status 03/03/20 20 1 CLOSED Fetus Data [...] Domestic Partner Domestic Partner Phone Father Name Member Services Representative Status 03/03/20 20 1 CLOSED Fetus Data [...] Domestic Partner Domestic Partner Phone Father Name Member Services Representative Status 03/22/20 20 1 CLOSED Fetus Data [...]
--- OUTSIDE RECORDS SUMMARY | 2025-06-05 10:56 | XMS_ITS | Clinical Summary ---
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 Gender Identity Not on file Sexual Orientation [...] 1:09 PM CDT Height 165.1 cm (5' 5) 12/31/2023 1:09 PM CDT Body Mass Index 25.04 12/31/2023 1:09 PM CDT Plan of Treatment Health Maintenance Due Date Last Done Comments Cervical Cancer Screening 1981 Depression Screening 1981 Hepatitis C Screening 1981 Varicella Vaccines (1 of 2 - 13+ 2-dose series) 1994 Hepatitis B Screening 1999 Regular Well Visit/Exam 18-64 1999 HPV Vaccines (1 - 3-dose SCDM series) 2008 Breast Cancer Screening-Mammogram 07/03/2024 07/03/2023, 08/24/2022, 05/03/2022, Additional history exists Influenza Vaccine (#1) 2025 05/19/2019, 2016 DTaP/Tdap/Td Vaccine (2 - Td or Tdap) 04/21/2029 04/21/2019 Pneumococcal vaccine <65 Aged Out No longer eligible based on patient's age to complete this topic Procedures Procedure Name Priority Date/Time Associated Diagnosis Comments DIAGNOSTIC MAMMOGRAM BILATERAL W SARBJIT Schedule Routine, Read Routine (OP Routine) 07/03/2023 1:13 PM SODA WORKER Mass of breast, unspecified laterality from Last 3 Months or Most Recently Relevant to Health Maintenance Results * Diagnostic Mammogram Bilateral W Sarbjit (07/03/2023 1:13 PM SODA WORKER) Anatomical Region Laterality Modality Breast Bilateral Mammography 07/03/2023 1:56 PM SODA WORKER Impressions 07/03/2023 1:59 PM SODA WORKER Findings consistent with multiple foci of fat [...] Lor Barriga M.D. Narrative 07/03/2023 1:59 PM SODA WORKER EXAMINATION: BILATERAL DIGITAL DIAGNOSTIC MAMMOGRAM INCLUDING CAD [...] Most Recently Relevant to Health Maintenance Insurance [employer] Care Teams Supervisor Crack Off Relationship Specialty Start Date End Date Jagdeep Burdick DO PCP - General Internal Medicine 04/06/17 Karine Valdivia MD [address] [facility] [address] [address] Allergy and Immunology 10/30/23
--- OUTSIDE RECORDS SUMMARY | 2025-06-05 10:56 | XMS_ITS | Patient Health Record ---
Author Organization [facility] [employer] [place] ([address]) Address [address] [facility] [address] [place] [address] Care Team Providers Care Cloth Covered Helmet Puller Name Role Phone Jagdeep Burdick Primary Care Provider Unavailab adele Trina Valdivian Unavailable [phone] Allergies Allergen (clinical drug ingredient) Drug/Non Drug [...] a day; Duration: 30 days 10/10/2023 Active ALBUTEROL Active ZyrTEC Allergy 10 MG 1 tab(s) orally once a day Active Cetirizine HCl 10 MG 1 tab(s) orally once a day; Duration: 30 days 10/10/2023 Active Albuterol Sulfate *Please review and pick correct strength-formulation from TuneInan options. If intended option is not shown, discontinue and re-order from Quick Search* Active FAMOTIDINE 20 mg 1 tab(s) orally twice a day; Duration: 30 days 10/10/2023 Active CETIRIZINE 10 mg 1 tab(s) orally once a day; Duration: 30 days 10/10/2023 Active ZYRTEC 10 mg [...] Status Risk Notes Problem Chronic allergic conjunctivitis (91988606) Other chronic allergic conjunctivitis (H10.45) Active confirmed Problem Allergic rhinitis caused by pollen (disorder) (77429687) Allergic rhinitis due to pollen (J30.1) Active confirmed Problem Allergic rhinitis (43249884) Other allergic rhinitis (J30.89) Active confirmed Problem Uncomplicated moderate persistent asthma (927173951) Moderate persistent asthma, uncomplicated (J45.40) Active confirmed Problem Allergic rhinitis caused by animal hair and dander (352293586197731) Allergic rhinitis due to animal (cat) (dog) hair and dander (J30.81) Active confirmed Problem Allergy status t o other antibiotic agents (Z88.1) Active confirmed Plan Of Treatment Pending Test Test Name Order Date THYROGLOBULIN ANTIBODIES 10/10/2023 Insurance Providers Payer Name Payer Address Payer Phone Subscriber Number Group Number Insured Name Patient Relationship to Insured Coverage Start Date [facility]age End Date [facility] [address] [facility] [place] [address] [phone] [id number] Priya Chow Self - patient is the insured Medical (General) History Medical History History ICD Code Asthma Allergic rhinitis due to pollen J30.1 Dermatitis, unspecified L30.9 Surgical History Surgery Date(Month/Year) hip surgery 2016
--- OUTSIDE RECORDS SUMMARY | 2025-06-05 10:56 | XMS_ITS | Clinical Summary ---
Author Organization [facility] Address [address] [place] [address] Care Team Providers Care Teaching Artist Name Role Phone Unavailable Primary Care Provider Unavailabl e Source Comments [facility],non-owned Affiliates and Associated Physician Practices is amultiple site organization consisting of ambulatory clinics and hospital sitesin [place], [place] and [place]. This disclosure is being madepursuant to the Care Everywhere program and may not contain all information available regarding this patient. Last updated 18.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 Gender Identity Not on file Sexual Orientation Not on file Plan of Treatment Health Maintenance Due Date Last Done Comments LIPID TESTING 1981 MAMMOGRAM 1981 HIV SCREENING 1996 HEPATITIS C SCREENING 04/10/1999 DTAP/TDAP/TD VACCINES (1 - Tdap) 2000 HEPATITIS B VACCINE (1 of 3 - 19+ 3-dose series) 2000 PAP SMEAR 2002 HPV VACCINE (1 - 3-dose SCDM series) 2008 DEPRESSION SCREENING 08/13/2024 COVID-19 VACCINE (1 - 2023-2 5 season) 2025 INFLUENZA VACCINE (#1) 2025 ZOSTER VACCINE (1 of 2) 2031 [...] / Payer (Ef fective for All Dates) Name:Priya Singer Member ID:Not on file Relation to Subscriber:Not on file Name:PRIYA SINGER Subscriber ID:Not on file (Home) Address: [address] [place] [phone] Payer ID:Not on file Group ID:Not on file Type:Self Pay Address: [place], [place] CIGNA * Guarantor: PRIYA SINGER Account Type Relation to Patient Date of Phone Billing Address Personal/Family [address] [place] [phone] [employer] * Guarantor: PRIYA SINGER Account Type Relation to Patient Date of Phone Billing Address Personal/Family [address] [place] [address] * Guarantor: PRIYA SINGER Account Type Relation to Patient Date of Phone Billing Address Personal/Family [address] [place] [address]
== END 2025-06-05 10:33 | disposition home or self-care (01) ==
LOC: ANHFOHIMG 10:32
PROVIDERS: PCP Clinical Nurse Specialist; Visit Provider Surgery
DX: R92.8 Other abnormal and inconclusive findings on diagnostic imaging of breast (principal); N63.11 Unspecified lump in the right breast, upper outer quadrant; N63.13 Unspecified lump in the right breast, lower outer quadrant; N64.1 Fat necrosis of breast; N63.10 Unspecified lump in the right breast, unspecified quadrant
CPT/HCPCS: 76642; 77062; 77066; G0279